=== PATIENT | male | born 1975 | race Caucasian/White ===

== ENCOUNTER 2019-10-29 15:31 | Inpatient (IN) | payer MEDICAID, OTHER ==
[~2019-10-29] VITALS: Ht 190.5 cm; Wt 91.0 kg
[2019-10-29 16:59] LABS: BASOPHILS % (AUTO) 0.5 % (0.0-2.0); EOSINOPHILS % (AUTO) 2.8 % (1.0-6.0); HEMATOCRIT 41.6 % (41-53); HEMOGLOBIN 14.2 g/dL (13.5-17.5); LYMPHOCYTES # (AUTO) 2.9 K/uL (1.0-4.8); LYMPHOCYTES % (AUTO) 25.2 % (22.0-44.0); MEAN CORPUSCULAR HEMOGLOBIN 30.8 pg (26.0-34.0); MEAN CORPUSCULAR HGB CONC 34.2 G/dL (31.0-37.0); MEAN CORPUSCULAR VOLUME 90 fL (80-100); MONOCYTES # (AUTO) 0.9 K/uL (0.1-1.0); MONOCYTES % (AUTO) 7.7 % (2.0-9.0); NEUTROPHILS # (AUTO) 7.4 K/uL (1.8-7.7); NEUTROPHILS % (AUTO) 63.8 % (40.0-70.0); PLATELET COUNT (AUTO) 333 K/uL (150-450); RED BLOOD CELL COUNT(AUTO) 4.61 MIL/uL (4.50-5.90); RED CELL DISTRIBUTION WIDTH 13.2 % (11.5-14.5)
[2019-10-29 17:09] LABS: ANION GAP 6 mmol/L (8-16); CALCIUM, TOTAL 9.1 mg/dL (8.8-10.5); CARBON DIOXIDE 28 mmol/L (22-29); CHLORIDE 103 mmol/L (98-107); CREATININE 1.49 mg/dL (0.60-1.30); GLOMERULAR FILTR. RATE CALC 51 mL/min (>60); GLUCOSE,RANDOM 107 mg/dL (70-110); POTASSIUM 4.2 mmol/L (3.5-5.1); SODIUM SERUM 137 mmol/L (136-145); UREA NITROGEN, BLOOD 24 mg/dL (7-18)
[2019-10-29 17:10] LABS: AMPHET/METH SCREEN,URINE NEGATIVE (NEGATIVE); BARBITURATE SCREEN, URINE NEGATIVE (NEGATIVE); BENZODIAZEPINES SCREEN,URINE POSITIVE (NEGATIVE); CANNABINOID SCREEN,URINE NEGATIVE (NEGATIVE); COCAINE SCREEN,URINE NEGATIVE (NEGATIVE); METHADONE SCREEN, URINE NEGATIVE (NEGATIVE); OPIATE SCREEN,URINE POSITIVE (NEGATIVE)
[2019-10-29 17:11] LABS: PHENCYCLIDINE SCREEN,URINE NEGATIVE (NEGATIVE)
[2019-10-29 17:15] LABS: ALANINE AMINOTRANSFERASE 24 U/L (12-78); ALBUMIN 3.8 g/dL (3.4-5.0); ALKALINE PHOSPHATASE 62 U/L (46-116); ASPARTATE AMINOTRANSFERASE 16 U/L (15-37); BILIRUBIN,TOTAL 0.4 mg/dL (0.1-1.0); TOTAL PROTEIN, SERUM 7.7 g/dL (6.4-8.2)
[2019-10-29] MEDS: LORazepam 2 MG TABLET PO PRN (22:04)
[2019-10-29] MEDS: HALOPERIDOL 5 MG TABLET PO PRN (22:04)
[2019-10-30] VITALS (7 sets, daily range): BP systolic 107–150; BP diastolic 60–91
[2019-10-30] MEDS: LORazepam 2 MG TABLET PO PRN ×2 (06:59→17:55)
[2019-10-30] MEDS ORDERED: ALBUTEROL SULFATE HFA 90 MCG/PUFF 8 GM INHALER IH PRN (07:30)
[2019-10-30] MEDS ORDERED: DOCUSATE SODIUM 100 MG CAPSULE PO PRN (07:30)
[2019-10-30] MEDS ORDERED: MAG HYDROX/AL HYDROX/SIMETH ES 30 ML SUSPENSION UDCUP PO PRN ×2 (07:30→09:30)
[2019-10-30] MEDS ORDERED: CloNIDine HCL 0.1 MG TABLET PO PRN ×2 (07:30→09:30)
[2019-10-30] MEDS ORDERED: PETROLATUM,WHITE 28 GM JELLY TP PRN (07:30)
[2019-10-30] MEDS ORDERED: ACETAMINOPHEN 325 MG TABLET PO PRN (07:30)
[2019-10-30] MEDS ORDERED: LOPERAMIDE HCL 2 MG CAPSULE PO PRN (07:30)
[2019-10-30] MEDS ORDERED: MAGNESIUM HYDROXIDE SUSPENSION 30 ML UDCUP PO PRN (07:30)
[2019-10-30] MEDS ORDERED: IBUPROFEN 400 MG TABLET PO PRN (07:30)
[2019-10-30] MEDS ORDERED: NICOTINE 14 MG/24 HOUR PATCH TD PRN (07:30)
[2019-10-30] MEDS ORDERED: GuaiFENesin/D-METHORPHAN [SUGAR-FREE] 200-20MG/10 ML SYRUP UDCUP PO PRN (07:30)
[2019-10-30] MEDS ORDERED: IBUPROFEN 600 MG TABLET PO PRN (09:30)
[2019-10-30] MEDS ORDERED: HydrOXYzine PAMOATE 50 MG CAPSULE PO PRN (09:30)
[2019-10-30] MEDS ORDERED: ONDANSETRON HCL 4 MG TABLET PO PRN (11:00)
[2019-10-30] MEDS: CloNIDine HCL 0.1 MG TABLET PO SCH ×3 (12:36→21:38)
[2019-10-30] MEDS: HALOPERIDOL 5 MG TABLET PO PRN (17:55)
[2019-10-30] MEDS: FLUoxetine HCL 20 MG CAPSULE PO SCH (21:00)
[2019-10-31] MEDS: LORazepam 2 MG TABLET PO PRN ×4 (01:06→21:15)
[2019-10-31] MEDS: ZOLPIDEM TARTRATE 10 MG TABLET PO PRN ×2 (01:13→21:18)
[2019-10-31 02:19] VITALS: BP 116/68
[2019-10-31 02:23] VITALS: BP 116/68
[2019-10-31] MEDS: CloNIDine HCL 0.1 MG TABLET PO SCH ×4 (06:00→21:15)
[2019-10-31 12:11] VITALS: BP 121/73
[2019-10-31 16:00] VITALS: BP 132/81
[2019-10-31] MEDS: FLUoxetine HCL 20 MG CAPSULE PO SCH (21:15)
[2019-10-31] MEDS: HALOPERIDOL 5 MG TABLET PO PRN (21:18)
[2019-11-01] MEDS: LORazepam 2 MG TABLET PO PRN ×4 (04:01→16:53)
[2019-11-01 04:07] VITALS: BP 128/82
[2019-11-01] MEDS: CloNIDine HCL 0.1 MG TABLET PO SCH ×4 (06:00→20:47)
[2019-11-01 08:01] VITALS: BP 132/72
[2019-11-01 08:14] VITALS: BP 132/72
[2019-11-01] MEDS: HALOPERIDOL 5 MG TABLET PO PRN ×2 (08:46→12:39)
[2019-11-01 20:47] VITALS: BP 118/76
[2019-11-01] MEDS: FLUoxetine HCL 20 MG CAPSULE PO SCH (20:47)
[2019-11-01] MEDS: ZOLPIDEM TARTRATE 10 MG TABLET PO PRN (20:47)
[2019-11-02 01:07] VITALS: BP 124/85
[2019-11-02] MEDS: CloNIDine HCL 0.1 MG TABLET PO SCH (06:00)
[2019-11-02] MEDS: LORazepam 2 MG TABLET PO PRN ×2 (07:12→11:02)
[2019-11-02 08:46] VITALS: BP 138/76
[2019-11-02 08:47] VITALS: BP 138/76
[2019-11-02] MEDS ORDERED: FLUO-191 PO (13:28)
== END 2019-11-02 14:20 | disposition home or self-care (01) | DRG 751 ==
LOC: EMS 15:31 → B3A 18:50
PROVIDERS: ADMIT Psychiatry & Neurology Child & Adolescent Psychiatry; ATTEND Psychiatry & Neurology Child & Adolescent Psychiatry
DX: F32.2 Major depressive disorder, single episode, severe without psychotic features (principal); D72.829 Elevated white blood cell count, unspecified; R56.9 Unspecified convulsions; N17.9 Acute kidney failure, unspecified; F41.9 Anxiety disorder, unspecified; Z20.828 Contact with and (suspected) exposure to other viral communicable diseases
CPT/HCPCS: 87426; G0480; Q0162

== ENCOUNTER 2020-05-11 13:11 | Inpatient (IN) | payer MEDICAID, OTHER ==
[~2020-05-11] VITALS: Ht 190.5 cm; Wt 90.9 kg
[~2020-05-11 13:11] MED LIST: FLUO-191 PO
[2020-05-11 14:58] LABS: BASOPHILS % (AUTO) 0.5 % (0.0-2.0); EOSINOPHILS % (AUTO) 1.4 % (1.0-6.0); HEMATOCRIT 40.2 % (41-53); HEMOGLOBIN 13.5 g/dL (13.5-17.5); LYMPHOCYTES # (AUTO) 1.7 K/uL (1.0-4.8); LYMPHOCYTES % (AUTO) 14.3 % (22.0-44.0); MEAN CORPUSCULAR HEMOGLOBIN 30.7 pg (26.0-34.0); MEAN CORPUSCULAR HGB CONC 33.7 G/dL (31.0-37.0); MEAN CORPUSCULAR VOLUME 91 fL (80-100); MONOCYTES # (AUTO) 0.7 K/uL (0.1-1.0); MONOCYTES % (AUTO) 6.1 % (2.0-9.0); NEUTROPHILS # (AUTO) 9.2 K/uL (1.8-7.7); NEUTROPHILS % (AUTO) 77.7 % (40.0-70.0); PLATELET COUNT (AUTO) 332 K/uL (150-450); RED BLOOD CELL COUNT(AUTO) 4.42 MIL/uL (4.50-5.90); RED CELL DISTRIBUTION WIDTH 13.4 % (11.5-14.5)
[2020-05-11 15:24] LABS: ANION GAP 11 mmol/L (8-16); CALCIUM, TOTAL 8.4 mg/dL (8.8-10.5); CARBON DIOXIDE 25 mmol/L (22-29); CHLORIDE 105 mmol/L (98-107); CREATININE 1.04 mg/dL (0.60-1.30); GLOMERULAR FILTR. RATE CALC > 60 mL/min (>60); GLUCOSE,RANDOM 104 mg/dL (70-110); POTASSIUM 4.3 mmol/L (3.5-5.1); SODIUM SERUM 141 mmol/L (136-145); UREA NITROGEN, BLOOD 16 mg/dL (7-18)
[2020-05-11 15:31] LABS: ALANINE AMINOTRANSFERASE 23 U/L (12-78); ALBUMIN 3.3 g/dL (3.4-5.0); ALKALINE PHOSPHATASE 53 U/L (46-116); ASPARTATE AMINOTRANSFERASE 15 U/L (15-37); BILIRUBIN,TOTAL 0.4 mg/dL (0.1-1.0); TOTAL PROTEIN, SERUM 6.8 g/dL (6.4-8.2)
[2020-05-11 15:37] LABS: COVID AG,FIA SOURCE NASAL SWAB
[2020-05-11 16:00] LABS: AMPHET/METH SCREEN,URINE NEGATIVE (NEGATIVE); BARBITURATE SCREEN, URINE NEGATIVE (NEGATIVE); BENZODIAZEPINES SCREEN,URINE POSITIVE (NEGATIVE); CANNABINOID SCREEN,URINE NEGATIVE (NEGATIVE); COCAINE SCREEN,URINE NEGATIVE (NEGATIVE); METHADONE SCREEN, URINE NEGATIVE (NEGATIVE); OPIATE SCREEN,URINE POSITIVE (NEGATIVE)
[2020-05-11 16:02] LABS: PHENCYCLIDINE SCREEN,URINE NEGATIVE (NEGATIVE)
[2020-05-11] MEDS ORDERED: OxyCODONE HCL 5 MG IR TABLET PO ONE (19:30)
[2020-05-11] MEDS ORDERED: LORazepam 2 MG TABLET PO PRN (20:15)
[2020-05-11] MEDS ORDERED: ZOLPIDEM TARTRATE 10 MG TABLET PO PRN (20:15)
[2020-05-11] MEDS ORDERED: HALOPERIDOL 5 MG TABLET PO PRN (20:15)
[2020-05-12] MEDS ORDERED: HALOPERIDOL LACTATE 5 MG/ML VIAL IVP ONE (01:30)
[2020-05-12] MEDS ORDERED: DiphenhydrAMINE HCL 50 MG/ML VIAL IVP ONE (01:30)
[2020-05-12] MEDS ORDERED: LORazepam 2 MG/ML VIAL IVP ONE (01:30)
[2020-05-12] MEDS ORDERED: DiphenhydrAMINE HCL 50 MG/ML VIAL IM ONE (01:45)
[2020-05-12] MEDS ORDERED: LORazepam 2 MG/ML VIAL IM ONE (01:45)
[2020-05-12] MEDS ORDERED: HALOPERIDOL LACTATE 5 MG/ML VIAL IM ONE (01:45)
[2020-05-12 02:09] VITALS: BP 122/73
[2020-05-13] MEDS ORDERED: INFLUENZA VIRUS VACCINE QVS 2020-21 (6MO+)/PF 60 MCG/0.5 ML SYRINGE IM ONE (01:00)
[2020-05-13 08:44] VITALS: BP 129/82
== END 2020-05-13 13:40 | disposition home or self-care (01) | DRG 750 ==
LOC: EMS 13:11 → B3A 20:04
PROVIDERS: ADMIT Psychiatry & Neurology Psychiatry; ATTEND Psychiatry & Neurology Psychiatry
DX: F20.9 Schizophrenia, unspecified (principal); F41.9 Anxiety disorder, unspecified; G47.00 Insomnia, unspecified; K59.00 Constipation, unspecified; R45.851 Suicidal ideations; F15.10 Other stimulant abuse, uncomplicated; F11.10 Opioid abuse, uncomplicated; R56.9 Unspecified convulsions; F10.939 Alcohol use, unspecified with withdrawal, unspecified; Z20.822 Contact with and (suspected) exposure to COVID-19; Z80.42 Family history of malignant neoplasm of prostate; Z72.0 Tobacco use; Z28.21 Immunization not carried out because of patient refusal; Z91.14 Patient's other noncompliance with medication regimen; Z79.899 Other long term (current) drug therapy
CPT/HCPCS: 87426; 99285; G0480; J1200; J1630; J2060

== ENCOUNTER 2021-08-11 19:54 | Inpatient (IN) | payer MEDICAID, OTHER ==
[~2021-08-11] VITALS: Ht 190.5 cm; Wt 88.5 kg
[2021-08-11 21:25] LABS: BASOPHILS % (AUTO) 0.6 % (0.0-2.0); EOSINOPHILS % (AUTO) 1.8 % (1.0-6.0); HEMATOCRIT 37.3 % (41-53); HEMOGLOBIN 12.6 g/dL (13.5-17.5); LYMPHOCYTES # (AUTO) 3.5 K/uL (1.0-4.8); LYMPHOCYTES % (AUTO) 31.2 % (22.0-44.0); MEAN CORPUSCULAR HEMOGLOBIN 30.2 pg (26.0-34.0); MEAN CORPUSCULAR HGB CONC 33.8 G/dL (31.0-37.0); MEAN CORPUSCULAR VOLUME 89 fL (80-100); MONOCYTES # (AUTO) 0.9 K/uL (0.1-1.0); MONOCYTES % (AUTO) 8.3 % (2.0-9.0); NEUTROPHILS # (AUTO) 6.5 K/uL (1.8-7.7); NEUTROPHILS % (AUTO) 58.1 % (40.0-70.0); PLATELET COUNT (AUTO) 430 K/uL (150-450); RED BLOOD CELL COUNT(AUTO) 4.18 MIL/uL (4.50-5.90); RED CELL DISTRIBUTION WIDTH 13.9 % (11.5-14.5)
[2021-08-11 21:26] LABS: COVID AG,FIA SOURCE NASAL SWAB
[2021-08-11 21:33] LABS: ANION GAP 6 mmol/L (8-16); CALCIUM, TOTAL 8.9 mg/dL (8.8-10.5); CARBON DIOXIDE 28 mmol/L (22-29); CHLORIDE 108 mmol/L (98-107); GLOMERULAR FILTR. RATE CALC > 60 mL/min (>60); GLUCOSE,RANDOM 102 mg/dL (70-110); POTASSIUM 3.8 mmol/L (3.5-5.1); SODIUM SERUM 142 mmol/L (136-145); UREA NITROGEN, BLOOD 22 mg/dL (7-18)
[2021-08-11 21:39] LABS: ALANINE AMINOTRANSFERASE 26 U/L (12-78); ALBUMIN 3.2 g/dL (3.4-5.0); ALKALINE PHOSPHATASE 94 U/L (46-116); ASPARTATE AMINOTRANSFERASE 10 U/L (15-37); BILIRUBIN,TOTAL 0.2 mg/dL (0.1-1.0); TOTAL PROTEIN, SERUM 6.4 g/dL (6.4-8.2)
[2021-08-11] MEDS: LORazepam 2 MG TABLET PO PRN (22:00)
[2021-08-11 22:15] LABS: APPEARANCE,URINE CLEAR (CLEAR); BILIRUBIN,URINE NEGATIVE (NEGATIVE); GLUCOSE, URINE (UA) NEGATIVE (NEGATIVE); KETONES,URINE NEGATIVE (NEGATIVE); LEUKOCYTE ESTERASE ,URINE NEGATIVE (NEGATIVE); NITRATE,URINE NEGATIVE (NEGATIVE); OCCULT BLOOD,URINE NEGATIVE (NEGATIVE); PH,URINE 6.5 (5.0-8.0); PROTEIN,URINE TRACE mg/dL (NEGATIVE); SPECIFIC GRAVITIY, URINE 1.029 (1.003-1.030)
[2021-08-11 22:21] LABS: AMPHET/METH SCREEN,URINE NEGATIVE (NEGATIVE); BARBITURATE SCREEN, URINE NEGATIVE (NEGATIVE); BENZODIAZEPINES SCREEN,URINE POSITIVE (NEGATIVE); CANNABINOID SCREEN,URINE NEGATIVE (NEGATIVE); COCAINE SCREEN,URINE NEGATIVE (NEGATIVE); METHADONE SCREEN, URINE NEGATIVE (NEGATIVE); OPIATE SCREEN,URINE NEGATIVE (NEGATIVE)
[2021-08-11 22:23] LABS: PHENCYCLIDINE SCREEN,URINE NEGATIVE (NEGATIVE)
[2021-08-12 05:09] VITALS: BP 117/84
[2021-08-12 07:16] LABS: CHOL/HDL RATIO 2.9 (4.2-7.3); FREE T4 (FREE THYROXINE) 0.97 ng/dL (0.76-1.46); THYROID STIMULATING HORMONE 0.73 uIU/mL (0.36-3.74)
[2021-08-12 07:44] LABS: HEMOGLOBIN A1C 5.6 % (3.8-5.6)
[2021-08-12 08:19] VITALS: BP 116/70
[2021-08-12] MEDS: LORazepam 2 MG TABLET PO PRN ×2 (08:38→14:55)
[2021-08-12 09:06] VITALS: BP 116/70
[2021-08-12] MEDS ORDERED: PROMETHAZINE HCL 25 MG TABLET PO PRN (12:00)
[2021-08-12] MEDS ORDERED: MAGNESIUM HYDROXIDE SUSPENSION 30 ML UDCUP PO PRN (12:00)
[2021-08-12] MEDS ORDERED: ACETAMINOPHEN 325 MG TABLET PO PRN (12:00)
[2021-08-12] MEDS ORDERED: LOPERAMIDE HCL 2 MG CAPSULE PO PRN (12:00)
[2021-08-12] MEDS ORDERED: TUBERCULIN, PURIFIED PROTEIN DERIVATIVE 5 TU/0.1 ML SYRINGE ID ONE (12:00)
[2021-08-12] MEDS ORDERED: GuaiFENesin/D-METHORPHAN [SUGAR-FREE] 200-20MG/10 ML SYRUP UDCUP PO PRN (12:00)
[2021-08-12] MEDS ORDERED: MAG HYDROX/AL HYDROX/SIMETH ES 30 ML SUSPENSION UDCUP PO PRN (12:00)
[2021-08-12 16:10] VITALS: BP 120/66
[2021-08-12] MEDS: HydrOXYzine PAMOATE 50 MG CAPSULE PO PRN (16:32)
[2021-08-12] MEDS: THIAMINE 100 MG TABLET PO SCH (16:32)
[2021-08-12] MEDS: LevETIRAcetam 500 MG TABLET PO SCH (16:33)
[2021-08-12] MEDS ORDERED: LevETIRAcetam 100 MG/ML 5 ML SOLUTION UDCUP PO SCH (17:00)
[2021-08-12] MEDS ORDERED: OLANZapine 5 MG RAPDIS TABLET PO SCH (21:00)
[2021-08-12] MEDS: DIVALPROEX SODIUM 500 MG ER TABLET PO SCH (21:04)
[2021-08-12] MEDS: MELATONIN 5 MG TABLET PO SCH (21:04)
[2021-08-12] MEDS: ZOLPIDEM TARTRATE 10 MG TABLET PO PRN ×2 (21:47→21:54)
[2021-08-13] MEDS: ZOLPIDEM TARTRATE 10 MG TABLET PO PRN ×2 (02:49→20:19)
[2021-08-13] MEDS: OMEGA-3/DHA/EPA/FISH OIL 1,000 MG CAPSULE PO SCH (08:20)
[2021-08-13] MEDS: THIAMINE 100 MG TABLET PO SCH ×2 (08:20→16:07)
[2021-08-13] MEDS: LORazepam 2 MG TABLET PO PRN ×3 (08:20→20:45)
[2021-08-13] MEDS: LevETIRAcetam 500 MG TABLET PO SCH ×2 (08:20→16:07)
[2021-08-13] MEDS: MULTIVITAMINS WITH MINERALS, THERAPEUTIC TABLET PO SCH (08:20)
[2021-08-13] MEDS: FOLIC ACID 1 MG TABLET PO SCH (08:20)
[2021-08-13] MEDS: OLANZapine 5 MG RAPDIS TABLET PO PRN (08:20)
[2021-08-13] MEDS: NALTREXONE HCL 50 MG TABLET PO SCH (08:21)
[2021-08-13 08:28] VITALS: BP 112/74
[2021-08-13] MEDS ORDERED: FLUoxetine HCL 20 MG CAPSULE PO SCH (09:00)
[2021-08-13 16:20] VITALS: BP 116/80
[2021-08-13] MEDS: OLANZapine 10 MG RAPDIS TABLET PO SCH (20:16)
[2021-08-13] MEDS: MELATONIN 5 MG TABLET PO SCH (20:16)
[2021-08-13] MEDS: DIVALPROEX SODIUM 500 MG ER TABLET PO SCH (20:16)
[2021-08-13 20:31] VITALS: BP 121/80
[2021-08-14 06:05] VITALS: BP 117/85
[2021-08-14] MEDS: LORazepam 2 MG TABLET PO PRN (06:12)
[2021-08-14] MEDS: FOLIC ACID 1 MG TABLET PO SCH (08:12)
[2021-08-14] MEDS: OMEGA-3/DHA/EPA/FISH OIL 1,000 MG CAPSULE PO SCH (08:12)
[2021-08-14] MEDS: THIAMINE 100 MG TABLET PO SCH ×2 (08:12→16:14)
[2021-08-14] MEDS: LevETIRAcetam 500 MG TABLET PO SCH ×2 (08:12→16:14)
[2021-08-14] MEDS: NALTREXONE HCL 50 MG TABLET PO SCH (08:12)
[2021-08-14] MEDS: MULTIVITAMINS WITH MINERALS, THERAPEUTIC TABLET PO SCH (08:13)
[2021-08-14] MEDS: HydrOXYzine PAMOATE 50 MG CAPSULE PO PRN (09:45)
[2021-08-14] MEDS: OLANZapine 5 MG RAPDIS TABLET PO PRN (09:46)
[2021-08-14] MEDS ORDERED: PALIPERIDONE PALMITATE 234 MG/1.5 ML SYRINGE IM ONE (16:00)
[2021-08-14] MEDS: OLANZapine 10 MG RAPDIS TABLET PO SCH (20:05)
[2021-08-14] MEDS: DIVALPROEX SODIUM 500 MG ER TABLET PO SCH (20:05)
[2021-08-14] MEDS: MELATONIN 5 MG TABLET PO SCH (20:05)
[2021-08-14 20:16] VITALS: BP 108/66
[2021-08-14] MEDS: ZOLPIDEM TARTRATE 10 MG TABLET PO PRN (21:22)
[2021-08-15] MEDS: OLANZapine 5 MG RAPDIS TABLET PO PRN ×2 (00:42→09:15)
[2021-08-15] MEDS: LORazepam 2 MG TABLET PO PRN ×2 (00:42→07:03)
[2021-08-15 04:03] VITALS: BP 114/83
[2021-08-15 08:08] VITALS: BP 136/73
[2021-08-15] MEDS: FOLIC ACID 1 MG TABLET PO SCH (08:55)
[2021-08-15] MEDS: NALTREXONE HCL 50 MG TABLET PO SCH (08:55)
[2021-08-15] MEDS: OMEGA-3/DHA/EPA/FISH OIL 1,000 MG CAPSULE PO SCH (08:55)
[2021-08-15] MEDS: MULTIVITAMINS WITH MINERALS, THERAPEUTIC TABLET PO SCH (08:55)
[2021-08-15] MEDS: THIAMINE 100 MG TABLET PO SCH ×4 (08:57→18:01)
[2021-08-15] MEDS: LevETIRAcetam 500 MG TABLET PO SCH ×4 (09:14→17:00)
[2021-08-15] MEDS: HydrOXYzine PAMOATE 50 MG CAPSULE PO PRN (09:15)
[2021-08-15] MEDS ORDERED: LORazepam 2 MG/ML VIAL IM ONE (13:45)
[2021-08-15] MEDS ORDERED: DiphenhydrAMINE HCL 50 MG/ML VIAL IM ONE (13:45)
[2021-08-15] MEDS ORDERED: HALOPERIDOL LACTATE 5 MG/ML VIAL IM ONE (13:45)
[2021-08-15] MEDS: LORazepam 1 MG TABLET PO PRN (18:01)
[2021-08-15 20:06] VITALS: BP 125/74
[2021-08-15] MEDS: OLANZapine 10 MG RAPDIS TABLET PO SCH (20:18)
[2021-08-15] MEDS: MELATONIN 5 MG TABLET PO SCH (20:18)
[2021-08-15] MEDS: DIVALPROEX SODIUM 500 MG ER TABLET PO SCH (20:19)
[2021-08-15] MEDS: ZOLPIDEM TARTRATE 10 MG TABLET PO PRN (20:19)
[2021-08-16] MEDS: LORazepam 1 MG TABLET PO PRN ×3 (05:47→22:17)
[2021-08-16 08:06] VITALS: BP 122/79
[2021-08-16] MEDS: NALTREXONE HCL 50 MG TABLET PO SCH (08:25)
[2021-08-16] MEDS: OMEGA-3/DHA/EPA/FISH OIL 1,000 MG CAPSULE PO SCH (08:25)
[2021-08-16] MEDS: FOLIC ACID 1 MG TABLET PO SCH (08:25)
[2021-08-16] MEDS: THIAMINE 100 MG TABLET PO SCH ×2 (08:25→16:03)
[2021-08-16] MEDS: MULTIVITAMINS WITH MINERALS, THERAPEUTIC TABLET PO SCH (08:25)
[2021-08-16] MEDS: LevETIRAcetam 500 MG TABLET PO SCH ×2 (08:25→16:03)
[2021-08-16] MEDS: TraZODone HCL 150 MG TABLET PO SCH (20:09)
[2021-08-16] MEDS: MELATONIN 5 MG TABLET PO SCH (20:09)
[2021-08-16] MEDS: DIVALPROEX SODIUM 500 MG ER TABLET PO SCH (20:09)
[2021-08-16] MEDS: OLANZapine 10 MG RAPDIS TABLET PO SCH (20:10)
[2021-08-16 20:28] VITALS: BP 123/81
[2021-08-16] MEDS: ZOLPIDEM TARTRATE 10 MG TABLET PO PRN (22:18)
[2021-08-17] MEDS: OLANZapine 5 MG RAPDIS TABLET PO PRN ×2 (06:43→15:52)
[2021-08-17] MEDS: LORazepam 1 MG TABLET PO PRN ×3 (06:44→23:57)
[2021-08-17 07:03] VITALS: BP 124/86
[2021-08-17] MEDS: MULTIVITAMINS WITH MINERALS, THERAPEUTIC TABLET PO SCH (09:05)
[2021-08-17] MEDS: OMEGA-3/DHA/EPA/FISH OIL 1,000 MG CAPSULE PO SCH (09:05)
[2021-08-17] MEDS: FOLIC ACID 1 MG TABLET PO SCH (09:05)
[2021-08-17] MEDS: LevETIRAcetam 500 MG TABLET PO SCH ×2 (09:05→16:33)
[2021-08-17] MEDS: NALTREXONE HCL 50 MG TABLET PO SCH (09:06)
[2021-08-17 09:17] VITALS: BP 108/68
[2021-08-17] MEDS: THIAMINE 100 MG TABLET PO SCH ×2 (10:19→16:33)
[2021-08-17 20:06] VITALS: BP 121/78
[2021-08-17] MEDS: DIVALPROEX SODIUM 500 MG ER TABLET PO SCH (21:51)
[2021-08-17] MEDS: MELATONIN 5 MG TABLET PO SCH (21:51)
[2021-08-17] MEDS: OLANZapine 10 MG RAPDIS TABLET PO SCH (21:51)
[2021-08-17] MEDS: TraZODone HCL 150 MG TABLET PO SCH (21:51)
[2021-08-17] MEDS: ZOLPIDEM TARTRATE 10 MG TABLET PO PRN (23:58)
[2021-08-18 08:12] VITALS: BP 113/72
[2021-08-18] MEDS: FOLIC ACID 1 MG TABLET PO SCH (08:21)
[2021-08-18] MEDS: MULTIVITAMINS WITH MINERALS, THERAPEUTIC TABLET PO SCH (08:21)
[2021-08-18] MEDS: LevETIRAcetam 500 MG TABLET PO SCH ×2 (08:21→16:39)
[2021-08-18] MEDS: NALTREXONE HCL 50 MG TABLET PO SCH (08:21)
[2021-08-18] MEDS: LORazepam 1 MG TABLET PO PRN ×3 (08:30→20:51)
[2021-08-18 08:51] LABS: GLUCOMETER DEV NAME(LOC) POC.BV
[2021-08-18] MEDS ORDERED: PALIPERIDONE PALMITATE 156 MG/ML SYRINGE IM ONE (09:00)
[2021-08-18] MEDS: OMEGA-3/DHA/EPA/FISH OIL 1,000 MG CAPSULE PO SCH (09:00)
[2021-08-18] MEDS: THIAMINE 100 MG TABLET PO SCH ×2 (09:00→16:39)
[2021-08-18 20:06] VITALS: BP 121/82
[2021-08-18] MEDS: OLANZapine 10 MG RAPDIS TABLET PO SCH (20:25)
[2021-08-18] MEDS: DIVALPROEX SODIUM 250 MG ER TABLET PO SCH (20:25)
[2021-08-18] MEDS: DIVALPROEX SODIUM 500 MG ER TABLET PO SCH (20:26)
[2021-08-18] MEDS: MELATONIN 5 MG TABLET PO SCH (20:27)
[2021-08-18] MEDS: ZOLPIDEM TARTRATE 10 MG TABLET PO PRN (20:27)
[2021-08-18] MEDS: TraZODone HCL 150 MG TABLET PO SCH (20:27)
[2021-08-19] MEDS: OLANZapine 5 MG RAPDIS TABLET PO PRN (00:53)
[2021-08-19] MEDS: LORazepam 1 MG TABLET PO PRN ×3 (00:57→20:16)
[2021-08-19] MEDS: OMEGA-3/DHA/EPA/FISH OIL 1,000 MG CAPSULE PO SCH (08:48)
[2021-08-19] MEDS: THIAMINE 100 MG TABLET PO SCH ×2 (08:48→16:59)
[2021-08-19] MEDS: NALTREXONE HCL 50 MG TABLET PO SCH ×2 (08:48→09:00)
[2021-08-19] MEDS: FOLIC ACID 1 MG TABLET PO SCH (08:48)
[2021-08-19] MEDS: LevETIRAcetam 500 MG TABLET PO SCH ×3 (08:48→16:59)
[2021-08-19] MEDS: MULTIVITAMINS WITH MINERALS, THERAPEUTIC TABLET PO SCH (08:48)
[2021-08-19 20:11] VITALS: BP 116/73
[2021-08-19] MEDS: DIVALPROEX SODIUM 500 MG ER TABLET PO SCH (20:15)
[2021-08-19] MEDS: DIVALPROEX SODIUM 250 MG ER TABLET PO SCH (20:15)
[2021-08-19] MEDS: ZOLPIDEM TARTRATE 10 MG TABLET PO PRN (20:16)
[2021-08-19] MEDS: MELATONIN 5 MG TABLET PO SCH (20:16)
[2021-08-19] MEDS ORDERED: TraZODone HCL 100 MG TABLET PO SCH (21:00)
[2021-08-19] MEDS ORDERED: OLANZapine 5 MG RAPDIS TABLET PO SCH (21:00)
[2021-08-20 08:56] VITALS: BP 122/75
[2021-08-20] MEDS: THIAMINE 100 MG TABLET PO SCH (09:27)
[2021-08-20] MEDS: OMEGA-3/DHA/EPA/FISH OIL 1,000 MG CAPSULE PO SCH (09:27)
[2021-08-20] MEDS: NALTREXONE HCL 50 MG TABLET PO SCH (09:27)
[2021-08-20] MEDS: FOLIC ACID 1 MG TABLET PO SCH (09:27)
[2021-08-20] MEDS: LevETIRAcetam 500 MG TABLET PO SCH (09:27)
[2021-08-20] MEDS: MULTIVITAMINS WITH MINERALS, THERAPEUTIC TABLET PO SCH (09:27)
[2021-08-20] MEDS: LORazepam 1 MG TABLET PO PRN (09:31)
[2021-08-20] MEDS ORDERED: DIVA-80 PO (13:32)
[2021-08-20] MEDS ORDERED: OLAN5TAB94 PO (13:32)
[2021-08-20] MEDS ORDERED: MELA5TAB40 PO (13:32)
[2021-08-20] MEDS ORDERED: NALT50TA PO (13:32)
[2021-08-20] MEDS ORDERED: OMEG-108 PO (13:32)
[2021-08-20] MEDS ORDERED: DIVA-85 PO (13:32)
[2021-08-20] MEDS ORDERED: TRAZ-257 PO (13:32)
[2021-08-20] MEDS ORDERED: LEVE500T8 PO (13:32)
== END 2021-08-20 15:15 | disposition home or self-care (01) | DRG 750 ==
LOC: EMS 19:54 → B3A 21:42
PROVIDERS: ADMIT Psychiatry & Neurology Psychiatry; ATTEND Psychiatry & Neurology Psychiatry
DX: F25.1 Schizoaffective disorder, depressive type (principal); R45.851 Suicidal ideations; Z20.822 Contact with and (suspected) exposure to COVID-19; F41.9 Anxiety disorder, unspecified; D64.9 Anemia, unspecified; F10.239 Alcohol dependence with withdrawal, unspecified; Y90.9 Presence of alcohol in blood, level not specified; N18.9 Chronic kidney disease, unspecified; Z87.891 Personal history of nicotine dependence
CPT/HCPCS: 80053; 80061; 80164; 81003; 83036; 84439; 84443; 85025; 99285; G0480; J1200; J1630; J2060; Q9967

== ENCOUNTER 2021-08-22 01:21 | Inpatient (IN) | payer MEDICAID, OTHER ==
[~2021-08-22] VITALS: Ht 190.5 cm; Wt 98.1 kg
[~2021-08-22 01:21] MED LIST changes: +DIVA-80 PO; +DIVA-85 PO; -FLUO-191 PO; +LEVE500T8 PO; +MELA5TAB40 PO; +NALT50TA PO; +OLAN5TAB94 PO; +OMEG-108 PO; +TRAZ-257 PO
[2021-08-22 02:04] LABS: BASOPHILS % (AUTO) 0.3 % (0.0-2.0); EOSINOPHILS % (AUTO) 2.3 % (1.0-6.0); HEMATOCRIT 38.1 % (41-53); LYMPHOCYTES % (AUTO) 25.1 % (22.0-44.0); MEAN CORPUSCULAR HEMOGLOBIN 30.9 pg (26.0-34.0); MEAN CORPUSCULAR HGB CONC 34.1 G/dL (31.0-37.0); MEAN CORPUSCULAR VOLUME 91 fL (80-100); MONOCYTES # (AUTO) 1.1 K/uL (0.1-1.0); MONOCYTES % (AUTO) 9.4 % (2.0-9.0); NEUTROPHILS # (AUTO) 7.5 K/uL (1.8-7.7); NEUTROPHILS % (AUTO) 62.9 % (40.0-70.0); PLATELET COUNT (AUTO) 287 K/uL (150-450); RED CELL DISTRIBUTION WIDTH 15.5 % (11.5-14.5)
[2021-08-22 02:12] LABS: ANION GAP 5 mmol/L (8-16); CALCIUM, TOTAL 8.8 mg/dL (8.8-10.5); CARBON DIOXIDE 28 mmol/L (22-29); CHLORIDE 107 mmol/L (98-107); CREATININE 1.12 mg/dL (0.60-1.30); GLUCOSE,RANDOM 94 mg/dL (70-110); SODIUM SERUM 140 mmol/L (136-145); UREA NITROGEN, BLOOD 18 mg/dL (7-18)
[2021-08-22 02:13] LABS: GLOMERULAR FILTR. RATE CALC > 60 mL/min (>60)
[2021-08-22 02:18] LABS: ALANINE AMINOTRANSFERASE 45 U/L (12-78); ALBUMIN 3.4 g/dL (3.4-5.0); ALKALINE PHOSPHATASE 73 U/L (46-116); ASPARTATE AMINOTRANSFERASE 29 U/L (15-37); BILIRUBIN,TOTAL 0.2 mg/dL (0.1-1.0); TOTAL PROTEIN, SERUM 6.7 g/dL (6.4-8.2)
[2021-08-22 03:01] LABS: APPEARANCE,URINE CLEAR (CLEAR); GLUCOSE, URINE (UA) NEGATIVE (NEGATIVE); KETONES,URINE TRACE mg/dL (NEGATIVE); LEUKOCYTE ESTERASE ,URINE NEGATIVE (NEGATIVE); NITRATE,URINE NEGATIVE (NEGATIVE); OCCULT BLOOD,URINE NEGATIVE (NEGATIVE); PH,URINE 6.5 (5.0-8.0); PROTEIN,URINE 30-70 mg/dL (NEGATIVE); SPECIFIC GRAVITIY, URINE 1.044 (1.003-1.030)
[2021-08-22 03:03] LABS: COVID AG,FIA SOURCE NASAL SWAB
[2021-08-22 03:06] LABS: BILIRUBIN,URINE SMALL (NEGATIVE)
[2021-08-22 03:08] LABS: AMPHET/METH SCREEN,URINE NEGATIVE (NEGATIVE); BARBITURATE SCREEN, URINE POSITIVE (NEGATIVE); BENZODIAZEPINES SCREEN,URINE NEGATIVE (NEGATIVE); CANNABINOID SCREEN,URINE NEGATIVE (NEGATIVE); COCAINE SCREEN,URINE NEGATIVE (NEGATIVE); METHADONE SCREEN, URINE NEGATIVE (NEGATIVE); OPIATE SCREEN,URINE NEGATIVE (NEGATIVE)
[2021-08-22 03:09] LABS: PHENCYCLIDINE SCREEN,URINE NEGATIVE (NEGATIVE)
[2021-08-22] MEDS: LORazepam 2 MG TABLET PO PRN ×3 (04:05→17:00)
[2021-08-22] MEDS: OLANZapine 5 MG RAPDIS TABLET PO PRN ×2 (04:06→08:36)
[2021-08-22] MEDS: LevETIRAcetam 500 MG TABLET PO SCH ×2 (08:37→16:18)
[2021-08-22] MEDS ORDERED: GuaiFENesin/D-METHORPHAN [SUGAR-FREE] 200-20MG/10 ML SYRUP UDCUP PO PRN (14:30)
[2021-08-22] MEDS ORDERED: ACETAMINOPHEN 325 MG TABLET PO PRN (14:30)
[2021-08-22] MEDS ORDERED: MAGNESIUM HYDROXIDE SUSPENSION 30 ML UDCUP PO PRN (14:30)
[2021-08-22] MEDS ORDERED: PROMETHAZINE HCL 25 MG TABLET PO PRN (14:30)
[2021-08-22] MEDS ORDERED: LOPERAMIDE HCL 2 MG CAPSULE PO PRN (14:30)
[2021-08-22] MEDS ORDERED: MAG HYDROX/AL HYDROX/SIMETH ES 30 ML SUSPENSION UDCUP PO PRN (14:30)
[2021-08-22] MEDS: THIAMINE 100 MG TABLET PO SCH (16:18)
[2021-08-22 16:33] VITALS: BP 129/83
[2021-08-22] MEDS ORDERED: NICOTINE 21 MG/24 HOUR PATCH TD ONE (19:30)
[2021-08-22 20:00] VITALS: BP 132/80
[2021-08-22] MEDS: OLANZapine 5 MG RAPDIS TABLET PO SCH (20:07)
[2021-08-22] MEDS: DIVALPROEX SODIUM 250 MG ER TABLET PO SCH (20:12)
[2021-08-22] MEDS: DIVALPROEX SODIUM 500 MG ER TABLET PO SCH (20:13)
[2021-08-22] MEDS: MELATONIN 5 MG TABLET PO SCH (20:13)
[2021-08-22] MEDS ORDERED: DIVALPROEX SODIUM 500 MG ER TABLET PO SCH (21:00)
[2021-08-23] MEDS: LORazepam 2 MG TABLET PO PRN ×3 (04:14→17:54)
[2021-08-23] MEDS: OLANZapine 5 MG RAPDIS TABLET PO PRN ×2 (04:14→08:55)
[2021-08-23] MEDS: LevETIRAcetam 500 MG TABLET PO SCH ×2 (08:00→16:20)
[2021-08-23] MEDS: NICOTINE 21 MG/24 HOUR PATCH TD SCH (08:00)
[2021-08-23] MEDS: MULTIVITAMINS WITH MINERALS, THERAPEUTIC TABLET PO SCH (08:00)
[2021-08-23] MEDS: FOLIC ACID 1 MG TABLET PO SCH (08:00)
[2021-08-23] MEDS: NALTREXONE HCL 50 MG TABLET PO SCH (08:00)
[2021-08-23] MEDS: THIAMINE 100 MG TABLET PO SCH ×2 (08:00→16:20)
[2021-08-23] MEDS: OMEGA-3/DHA/EPA/FISH OIL 1,000 MG CAPSULE PO SCH (08:00)
[2021-08-23 08:49] VITALS: BP 125/85
[2021-08-23 16:42] VITALS: BP 131/92
[2021-08-23] MEDS: DIVALPROEX SODIUM 250 MG ER TABLET PO SCH (20:29)
[2021-08-23] MEDS: DIVALPROEX SODIUM 500 MG ER TABLET PO SCH (20:29)
[2021-08-23] MEDS: MELATONIN 5 MG TABLET PO SCH (20:29)
[2021-08-23] MEDS: OLANZapine 5 MG RAPDIS TABLET PO SCH (20:29)
[2021-08-24] MEDS: LORazepam 2 MG TABLET PO PRN ×4 (02:36→23:48)
[2021-08-24] MEDS: ZOLPIDEM TARTRATE 10 MG TABLET PO PRN ×2 (02:36→23:47)
[2021-08-24] MEDS: NICOTINE 21 MG/24 HOUR PATCH TD SCH (07:34)
[2021-08-24] MEDS: OLANZapine 5 MG RAPDIS TABLET PO PRN ×3 (07:34→23:47)
[2021-08-24] MEDS: OMEGA-3/DHA/EPA/FISH OIL 1,000 MG CAPSULE PO SCH (07:34)
[2021-08-24] MEDS: LevETIRAcetam 500 MG TABLET PO SCH ×2 (07:34→16:23)
[2021-08-24] MEDS: HydrOXYzine PAMOATE 50 MG CAPSULE PO PRN (07:34)
[2021-08-24] MEDS: NALTREXONE HCL 50 MG TABLET PO SCH (07:34)
[2021-08-24] MEDS: MULTIVITAMINS WITH MINERALS, THERAPEUTIC TABLET PO SCH (07:36)
[2021-08-24] MEDS: THIAMINE 100 MG TABLET PO SCH ×2 (07:36→16:24)
[2021-08-24] MEDS: FOLIC ACID 1 MG TABLET PO SCH (07:44)
[2021-08-24 08:00] VITALS: BP 168/94
[2021-08-24 16:44] VITALS: BP 105/63
[2021-08-24] MEDS: DIVALPROEX SODIUM 250 MG ER TABLET PO SCH (21:00)
[2021-08-24] MEDS: MELATONIN 5 MG TABLET PO SCH (21:00)
[2021-08-24] MEDS: OLANZapine 5 MG RAPDIS TABLET PO SCH (21:00)
[2021-08-24] MEDS: DIVALPROEX SODIUM 500 MG ER TABLET PO SCH (21:00)
[2021-08-25 00:17] VITALS: BP 115/90
[2021-08-25] MEDS: THIAMINE 100 MG TABLET PO SCH ×2 (08:07→16:37)
[2021-08-25] MEDS: OLANZapine 5 MG RAPDIS TABLET PO PRN (08:07)
[2021-08-25] MEDS: LevETIRAcetam 500 MG TABLET PO SCH ×2 (08:07→16:36)
[2021-08-25] MEDS: FOLIC ACID 1 MG TABLET PO SCH (08:07)
[2021-08-25] MEDS: MULTIVITAMINS WITH MINERALS, THERAPEUTIC TABLET PO SCH (08:07)
[2021-08-25] MEDS: LORazepam 2 MG TABLET PO PRN ×2 (08:07→15:00)
[2021-08-25] MEDS: OMEGA-3/DHA/EPA/FISH OIL 1,000 MG CAPSULE PO SCH (08:07)
[2021-08-25] MEDS: NALTREXONE HCL 50 MG TABLET PO SCH (08:08)
[2021-08-25] MEDS: NICOTINE 21 MG/24 HOUR PATCH TD SCH (08:10)
[2021-08-25 08:40] VITALS: BP 148/90
[2021-08-25 16:04] VITALS: BP 139/82
[2021-08-25] MEDS: HydrOXYzine PAMOATE 50 MG CAPSULE PO PRN (16:37)
[2021-08-25] MEDS: MELATONIN 5 MG TABLET PO SCH (20:41)
[2021-08-25] MEDS: OLANZapine 5 MG RAPDIS TABLET PO SCH (20:41)
[2021-08-25] MEDS: DIVALPROEX SODIUM 250 MG ER TABLET PO SCH (20:41)
[2021-08-25] MEDS: DIVALPROEX SODIUM 500 MG ER TABLET PO SCH (20:43)
[2021-08-26 00:30] VITALS: BP 120/76
[2021-08-26] MEDS: LORazepam 2 MG TABLET PO PRN ×3 (00:37→14:22)
[2021-08-26] MEDS: ZOLPIDEM TARTRATE 10 MG TABLET PO PRN ×2 (00:37→22:32)
[2021-08-26] MEDS: FOLIC ACID 1 MG TABLET PO SCH (07:51)
[2021-08-26] MEDS: OMEGA-3/DHA/EPA/FISH OIL 1,000 MG CAPSULE PO SCH (07:51)
[2021-08-26] MEDS: NALTREXONE HCL 50 MG TABLET PO SCH (07:51)
[2021-08-26] MEDS: LevETIRAcetam 500 MG TABLET PO SCH ×2 (07:52→16:38)
[2021-08-26] MEDS: MULTIVITAMINS WITH MINERALS, THERAPEUTIC TABLET PO SCH (07:52)
[2021-08-26] MEDS: THIAMINE 100 MG TABLET PO SCH ×2 (07:52→16:38)
[2021-08-26 08:18] VITALS: BP 105/69
[2021-08-26] MEDS: NICOTINE 21 MG/24 HOUR PATCH TD SCH (10:26)
[2021-08-26] MEDS: OLANZapine 5 MG RAPDIS TABLET PO PRN (14:22)
[2021-08-26 16:18] VITALS: BP 122/76
[2021-08-26] MEDS: HydrOXYzine PAMOATE 50 MG CAPSULE PO PRN (16:40)
[2021-08-26] MEDS: MELATONIN 5 MG TABLET PO SCH (20:23)
[2021-08-26] MEDS: DIVALPROEX SODIUM 500 MG ER TABLET PO SCH (20:23)
[2021-08-26] MEDS: OLANZapine 5 MG RAPDIS TABLET PO SCH (20:23)
[2021-08-26] MEDS: DIVALPROEX SODIUM 250 MG ER TABLET PO SCH (20:24)
[2021-08-27] MEDS: LORazepam 2 MG TABLET PO PRN ×2 (04:10→09:47)
[2021-08-27] MEDS: OLANZapine 5 MG RAPDIS TABLET PO PRN ×2 (04:10→09:48)
[2021-08-27 08:09] VITALS: BP 124/86
[2021-08-27] MEDS: FOLIC ACID 1 MG TABLET PO SCH (09:47)
[2021-08-27] MEDS: MULTIVITAMINS WITH MINERALS, THERAPEUTIC TABLET PO SCH (09:47)
[2021-08-27] MEDS: OMEGA-3/DHA/EPA/FISH OIL 1,000 MG CAPSULE PO SCH (09:47)
[2021-08-27] MEDS: NALTREXONE HCL 50 MG TABLET PO SCH (09:47)
[2021-08-27] MEDS: LevETIRAcetam 500 MG TABLET PO SCH ×2 (09:47→16:44)
[2021-08-27] MEDS: THIAMINE 100 MG TABLET PO SCH ×2 (09:47→16:44)
[2021-08-27] MEDS: NICOTINE 21 MG/24 HOUR PATCH TD SCH (09:49)
[2021-08-27 16:04] VITALS: BP 107/73
[2021-08-27] MEDS: MELATONIN 5 MG TABLET PO SCH (20:04)
[2021-08-27] MEDS: DIVALPROEX SODIUM 250 MG ER TABLET PO SCH (20:04)
[2021-08-27] MEDS: OLANZapine 5 MG RAPDIS TABLET PO SCH (20:04)
[2021-08-27] MEDS: DIVALPROEX SODIUM 500 MG ER TABLET PO SCH (20:04)
[2021-08-27 20:45] VITALS: BP 116/79
[2021-08-28] MEDS: ZOLPIDEM TARTRATE 10 MG TABLET PO PRN (00:42)
[2021-08-28] MEDS: LORazepam 2 MG TABLET PO PRN ×4 (02:03→21:10)
[2021-08-28 07:29] LABS: COVID AG,FIA SOURCE NASAL SWAB
[2021-08-28 08:09] VITALS: BP 124/79
[2021-08-28] MEDS: THIAMINE 100 MG TABLET PO SCH ×2 (09:30→15:53)
[2021-08-28] MEDS: FOLIC ACID 1 MG TABLET PO SCH (09:30)
[2021-08-28] MEDS: NALTREXONE HCL 50 MG TABLET PO SCH (09:30)
[2021-08-28] MEDS: OLANZapine 5 MG RAPDIS TABLET PO PRN ×2 (09:30→15:53)
[2021-08-28] MEDS: OMEGA-3/DHA/EPA/FISH OIL 1,000 MG CAPSULE PO SCH (09:31)
[2021-08-28] MEDS: LevETIRAcetam 500 MG TABLET PO SCH ×2 (09:31→15:53)
[2021-08-28] MEDS: NICOTINE 21 MG/24 HOUR PATCH TD SCH ×2 (09:31→09:33)
[2021-08-28] MEDS: MULTIVITAMINS WITH MINERALS, THERAPEUTIC TABLET PO SCH (09:31)
[2021-08-28 16:47] VITALS: BP 126/82
[2021-08-28 20:22] VITALS: BP 123/80
[2021-08-28] MEDS: DIVALPROEX SODIUM 500 MG ER TABLET PO SCH (20:30)
[2021-08-28] MEDS: DIVALPROEX SODIUM 250 MG ER TABLET PO SCH (20:31)
[2021-08-28] MEDS: MELATONIN 5 MG TABLET PO SCH (20:31)
[2021-08-28] MEDS: OLANZapine 5 MG RAPDIS TABLET PO SCH (20:31)
[2021-08-29 08:00] VITALS: BP 128/92
[2021-08-29] MEDS: NALTREXONE HCL 50 MG TABLET PO SCH (09:04)
[2021-08-29] MEDS: THIAMINE 100 MG TABLET PO SCH ×2 (09:04→16:55)
[2021-08-29] MEDS: MULTIVITAMINS WITH MINERALS, THERAPEUTIC TABLET PO SCH (09:05)
[2021-08-29] MEDS: OMEGA-3/DHA/EPA/FISH OIL 1,000 MG CAPSULE PO SCH (09:05)
[2021-08-29] MEDS: FOLIC ACID 1 MG TABLET PO SCH (09:05)
[2021-08-29] MEDS: LevETIRAcetam 500 MG TABLET PO SCH ×2 (09:05→16:55)
[2021-08-29] MEDS: NICOTINE 21 MG/24 HOUR PATCH TD SCH (09:05)
[2021-08-29] MEDS: LORazepam 2 MG TABLET PO PRN (11:44)
[2021-08-29] MEDS: OLANZapine 5 MG RAPDIS TABLET PO PRN (11:44)
[2021-08-29 16:49] VITALS: BP 124/84
[2021-08-29] MEDS: DIVALPROEX SODIUM 250 MG ER TABLET PO SCH (20:24)
[2021-08-29] MEDS: DIVALPROEX SODIUM 500 MG ER TABLET PO SCH (20:24)
[2021-08-29] MEDS: MELATONIN 5 MG TABLET PO SCH (20:24)
[2021-08-29] MEDS: OLANZapine 5 MG RAPDIS TABLET PO SCH (20:25)
[2021-08-30] MEDS: LORazepam 2 MG TABLET PO PRN ×4 (04:12→23:35)
[2021-08-30] MEDS: OLANZapine 5 MG RAPDIS TABLET PO PRN (04:12)
[2021-08-30] MEDS: OMEGA-3/DHA/EPA/FISH OIL 1,000 MG CAPSULE PO SCH (08:29)
[2021-08-30] MEDS: LevETIRAcetam 500 MG TABLET PO SCH ×2 (08:29→16:43)
[2021-08-30] MEDS: THIAMINE 100 MG TABLET PO SCH ×2 (08:30→16:43)
[2021-08-30] MEDS: NALTREXONE HCL 50 MG TABLET PO SCH (08:30)
[2021-08-30] MEDS: MULTIVITAMINS WITH MINERALS, THERAPEUTIC TABLET PO SCH (08:30)
[2021-08-30] MEDS: FOLIC ACID 1 MG TABLET PO SCH (08:30)
[2021-08-30 08:31] VITALS: BP 135/91
[2021-08-30] MEDS: NICOTINE 21 MG/24 HOUR PATCH TD SCH (08:31)
[2021-08-30 16:15] VITALS: BP 123/78
[2021-08-30] MEDS: MELATONIN 5 MG TABLET PO SCH (20:04)
[2021-08-30] MEDS: DIVALPROEX SODIUM 250 MG ER TABLET PO SCH (20:04)
[2021-08-30] MEDS: DIVALPROEX SODIUM 500 MG ER TABLET PO SCH (20:04)
[2021-08-30] MEDS: OLANZapine 5 MG RAPDIS TABLET PO SCH (20:04)
[2021-08-30] MEDS: ZOLPIDEM TARTRATE 10 MG TABLET PO PRN (23:36)
[2021-08-31 08:25] VITALS: BP 103/62
[2021-08-31] MEDS: NICOTINE 21 MG/24 HOUR PATCH TD SCH (09:00)
[2021-08-31] MEDS: THIAMINE 100 MG TABLET PO SCH ×2 (09:17→15:39)
[2021-08-31] MEDS: LevETIRAcetam 500 MG TABLET PO SCH ×2 (09:17→15:39)
[2021-08-31] MEDS: FOLIC ACID 1 MG TABLET PO SCH (09:17)
[2021-08-31] MEDS: OLANZapine 5 MG RAPDIS TABLET PO PRN ×2 (09:17→15:39)
[2021-08-31] MEDS: MULTIVITAMINS WITH MINERALS, THERAPEUTIC TABLET PO SCH (09:17)
[2021-08-31] MEDS: OMEGA-3/DHA/EPA/FISH OIL 1,000 MG CAPSULE PO SCH (09:17)
[2021-08-31] MEDS: NALTREXONE HCL 50 MG TABLET PO SCH (09:17)
[2021-08-31] MEDS: LORazepam 2 MG TABLET PO PRN ×2 (09:17→15:39)
[2021-08-31 16:06] VITALS: BP 90/52
[2021-08-31 19:06] VITALS: BP 112/69
[2021-08-31] MEDS: MELATONIN 5 MG TABLET PO SCH (20:35)
[2021-08-31] MEDS: DIVALPROEX SODIUM 250 MG ER TABLET PO SCH (20:35)
[2021-08-31] MEDS: OLANZapine 10 MG RAPDIS TABLET PO SCH (20:35)
[2021-08-31] MEDS: DIVALPROEX SODIUM 500 MG ER TABLET PO SCH (20:36)
[2021-09-01] MEDS: NICOTINE 21 MG/24 HOUR PATCH TD SCH (07:24)
[2021-09-01] MEDS: OLANZapine 5 MG RAPDIS TABLET PO PRN ×2 (07:24→16:02)
[2021-09-01] MEDS: NALTREXONE HCL 50 MG TABLET PO SCH (07:24)
[2021-09-01] MEDS: FOLIC ACID 1 MG TABLET PO SCH (07:24)
[2021-09-01] MEDS: OMEGA-3/DHA/EPA/FISH OIL 1,000 MG CAPSULE PO SCH (07:24)
[2021-09-01] MEDS: THIAMINE 100 MG TABLET PO SCH (07:25)
[2021-09-01] MEDS: MULTIVITAMINS WITH MINERALS, THERAPEUTIC TABLET PO SCH (07:25)
[2021-09-01] MEDS: LevETIRAcetam 500 MG TABLET PO SCH (07:25)
[2021-09-01] MEDS: LORazepam 2 MG TABLET PO PRN ×2 (07:26→16:02)
[2021-09-01 08:13] VITALS: BP 158/99
[2021-09-01] MEDS ORDERED: DIVALPROEX SODIUM 500 MG ER TABLET PO SCH (09:00)
[2021-09-01] MEDS ORDERED: DIVA-85 PO (15:29)
[2021-09-01] MEDS ORDERED: OLAN10TA26 PO (15:29)
[2021-09-01] MEDS ORDERED: OMEG-108 PO (15:29)
[2021-09-01] MEDS ORDERED: MELA5TAB40 PO (15:29)
[2021-09-01] MEDS ORDERED: DIVA-80 PO ×2 (15:29)
[2021-09-01] MEDS ORDERED: LEVE500T8 PO (15:29)
[2021-09-01] MEDS ORDERED: NALT50TA PO (15:29)
[2021-09-01 16:16] VITALS: BP 128/83
[2021-09-01] MEDS ORDERED: LevETIRAcetam 500 MG TABLET PO SCH (17:00)
[2021-09-01] MEDS: OLANZapine 10 MG RAPDIS TABLET PO SCH (20:51)
[2021-09-01] MEDS: DIVALPROEX SODIUM 250 MG ER TABLET PO SCH (20:51)
[2021-09-01] MEDS: DIVALPROEX SODIUM 500 MG ER TABLET PO SCH (20:51)
[2021-09-01] MEDS: MELATONIN 5 MG TABLET PO SCH (20:55)
== END 2021-09-01 21:10 | disposition home or self-care (01) | DRG 750 ==
LOC: EMS 01:22 → 3EC 02:56
PROVIDERS: ADMIT Psychiatry & Neurology Psychiatry; ATTEND Psychiatry & Neurology Psychiatry
DX: F25.0 Schizoaffective disorder, bipolar type (principal); G40.409 Other generalized epilepsy and epileptic syndromes, not intractable, without status epilepticus; R45.851 Suicidal ideations; F41.9 Anxiety disorder, unspecified; F10.239 Alcohol dependence with withdrawal, unspecified; G47.00 Insomnia, unspecified; J44.9 Chronic obstructive pulmonary disease, unspecified; R45.850 Homicidal ideations; Z53.29 Procedure and treatment not carried out because of patient's decision for other reasons; Z55.9 Problems related to education and literacy, unspecified; Z59.9 Problem related to housing and economic circumstances, unspecified; Z63.9 Problem related to primary support group, unspecified; Z65.3 Problems related to other legal circumstances; Z87.891 Personal history of nicotine dependence; Z91.14 Patient's other noncompliance with medication regimen; Z91.19 Patient's noncompliance with other medical treatment and regimen; Z63.8 Other specified problems related to primary support group
CPT/HCPCS: 80053; 80164; 81003; 85025; 87081; 99285; G0480; G0482; Q9967

== ENCOUNTER 2022-01-09 14:04 | Inpatient (IN) | payer MEDICAID, OTHER ==
[~2022-01-09] VITALS: Ht 193 cm; Wt 109.3 kg
[~2022-01-09 14:04] MED LIST changes: +OLAN10TA26 PO; -OLAN5TAB94 PO; -OMEG-108 PO; +OMEG-135 PO; -TRAZ-257 PO
[2022-01-09 14:49] LABS: BASOPHILS % (AUTO) 0.7 % (0.0-2.0); EOSINOPHILS % (AUTO) 2.8 % (1.0-6.0); HEMATOCRIT 45.8 % (41-53); HEMOGLOBIN 15.8 g/dL (13.5-17.5); LYMPHOCYTES # (AUTO) 2.4 K/uL (1.0-4.8); LYMPHOCYTES % (AUTO) 20.6 % (22.0-44.0); MEAN CORPUSCULAR HEMOGLOBIN 31.1 pg (26.0-34.0); MEAN CORPUSCULAR HGB CONC 34.6 G/dL (31.0-37.0); MEAN CORPUSCULAR VOLUME 90 fL (80-100); MONOCYTES # (AUTO) 0.6 K/uL (0.1-1.0); MONOCYTES % (AUTO) 5.5 % (2.0-9.0); NEUTROPHILS # (AUTO) 8.3 K/uL (1.8-7.7); NEUTROPHILS % (AUTO) 70.4 % (40.0-70.0); PLATELET COUNT (AUTO) 349 K/uL (150-450); RED BLOOD CELL COUNT(AUTO) 5.09 MIL/uL (4.50-5.90); RED CELL DISTRIBUTION WIDTH 13.2 % (11.5-14.5)
[2022-01-09 15:00] LABS: ANION GAP 11 mmol/L (8-16); CALCIUM, TOTAL 9.2 mg/dL (8.8-10.5); CARBON DIOXIDE 24 mmol/L (22-29); CHLORIDE 102 mmol/L (98-107); CREATININE 1.17 mg/dL (0.60-1.30); GLOMERULAR FILTR. RATE CALC > 60 mL/min (>60); GLUCOSE,RANDOM 98 mg/dL (70-110); POTASSIUM 4.2 mmol/L (3.5-5.1); SODIUM SERUM 137 mmol/L (136-145); UREA NITROGEN, BLOOD 16 mg/dL (7-18)
[2022-01-09 15:06] LABS: ALANINE AMINOTRANSFERASE 16 U/L (12-78); ALBUMIN 3.9 g/dL (3.4-5.0); ALKALINE PHOSPHATASE 72 U/L (46-116); ASPARTATE AMINOTRANSFERASE 12 U/L (15-37); BILIRUBIN,TOTAL 0.4 mg/dL (0.1-1.0); TOTAL PROTEIN, SERUM 7.6 g/dL (6.4-8.2)
[2022-01-09 15:23] LABS: VALPROIC ACID 23 mcg/mL (50-100)
[2022-01-09 15:29] LABS: AMPHET/METH SCREEN,URINE NEGATIVE (NEGATIVE); BARBITURATE SCREEN, URINE NEGATIVE (NEGATIVE); BENZODIAZEPINES SCREEN,URINE NEGATIVE (NEGATIVE); CANNABINOID SCREEN,URINE NEGATIVE (NEGATIVE); COCAINE SCREEN,URINE NEGATIVE (NEGATIVE); METHADONE SCREEN, URINE NEGATIVE (NEGATIVE); OPIATE SCREEN,URINE NEGATIVE (NEGATIVE)
[2022-01-09 15:30] LABS: PHENCYCLIDINE SCREEN,URINE NEGATIVE (NEGATIVE)
[2022-01-09 17:35] LABS: COVID AG,FIA SOURCE NASOPHARYNGEAL
[2022-01-09 17:38] LABS: APPEARANCE,URINE CLEAR (CLEAR); BILIRUBIN,URINE NEGATIVE (NEGATIVE); GLUCOSE, URINE (UA) NEGATIVE (NEGATIVE); KETONES,URINE TRACE mg/dL (NEGATIVE); LEUKOCYTE ESTERASE ,URINE NEGATIVE (NEGATIVE); NITRATE,URINE NEGATIVE (NEGATIVE); OCCULT BLOOD,URINE NEGATIVE (NEGATIVE); PH,URINE 6.5 (5.0-8.0); PROTEIN,URINE TRACE mg/dL (NEGATIVE); SPECIFIC GRAVITIY, URINE 1.029 (1.003-1.030)
[2022-01-09 17:52] LABS: RBC,URINE None Seen /HPF (0-2); WBC,URINE 0-2 /HPF (0-5)
[2022-01-09 17:53] LABS: BACTERIA,URINE None Seen /HPF (None Seen); SQUAMOUS EPITHELIAL CELL,UR Few /LPF (None Seen)
[2022-01-09] MEDS: LORazepam 2 MG TABLET PO PRN (18:50)
[2022-01-09] MEDS: HALOPERIDOL 5 MG TABLET PO PRN (18:50)
[2022-01-10] MEDS: HALOPERIDOL 5 MG TABLET PO PRN (12:09)
[2022-01-11] MEDS: LORazepam 2 MG TABLET PO PRN ×2 (05:38→19:05)
[2022-01-11] MEDS ORDERED: ACETAMINOPHEN 325 MG TABLET PO PRN (15:30)
[2022-01-11] MEDS ORDERED: ALBUTEROL SULFATE HFA 90 MCG/PUFF 8 GM INHALER IH PRN (15:30)
[2022-01-11] MEDS ORDERED: CloNIDine HCL 0.1 MG TABLET PO PRN (15:30)
[2022-01-11] MEDS ORDERED: ONDANSETRON HCL 4 MG TABLET PO PRN (15:30)
[2022-01-11] MEDS ORDERED: MAG HYDROX/AL HYDROX/SIMETH ES 30 ML SUSPENSION UDCUP PO PRN (15:30)
[2022-01-11] MEDS ORDERED: DOCUSATE SODIUM 100 MG CAPSULE PO PRN (15:30)
[2022-01-11] MEDS ORDERED: PETROLATUM,WHITE 28 GM JELLY TP PRN (15:30)
[2022-01-11] MEDS ORDERED: IBUPROFEN 400 MG TABLET PO PRN (15:30)
[2022-01-11] MEDS ORDERED: LOPERAMIDE HCL 2 MG CAPSULE PO PRN (15:30)
[2022-01-11] MEDS ORDERED: MAGNESIUM HYDROXIDE SUSPENSION 30 ML UDCUP PO PRN (15:30)
[2022-01-11] MEDS ORDERED: GuaiFENesin/D-METHORPHAN [SUGAR-FREE] 200-20MG/10 ML SYRUP UDCUP PO PRN (15:30)
[2022-01-11] MEDS: HALOPERIDOL 5 MG TABLET PO PRN (19:04)
[2022-01-11] MEDS: LevETIRAcetam 500 MG TABLET PO SCH (21:23)
[2022-01-11] MEDS: MELATONIN 5 MG TABLET PO SCH (21:23)
[2022-01-12] MEDS: LevETIRAcetam 500 MG TABLET PO SCH ×2 (08:07→18:11)
[2022-01-12] MEDS: OMEGA-3/DHA/EPA/FISH OIL 1,000 MG CAPSULE PO SCH (08:08)
[2022-01-12 12:41] VITALS: BP 150/89
[2022-01-12] MEDS: LORazepam 2 MG TABLET PO PRN ×2 (14:42→20:21)
[2022-01-12] MEDS: HALOPERIDOL 5 MG TABLET PO PRN (14:42)
[2022-01-12 16:58] VITALS: BP 113/75
[2022-01-12] MEDS: MELATONIN 5 MG TABLET PO SCH (20:09)
[2022-01-12] MEDS: ZOLPIDEM TARTRATE 10 MG TABLET PO PRN (20:21)
[2022-01-13] MEDS: LORazepam 2 MG TABLET PO PRN ×2 (07:38→11:58)
[2022-01-13] MEDS: OMEGA-3/DHA/EPA/FISH OIL 1,000 MG CAPSULE PO SCH (07:38)
[2022-01-13] MEDS: HALOPERIDOL 5 MG TABLET PO PRN ×2 (07:38→11:58)
[2022-01-13] MEDS: NICOTINE 14 MG/24 HOUR PATCH TD PRN (07:38)
[2022-01-13] MEDS: LevETIRAcetam 500 MG TABLET PO SCH ×2 (07:39→16:52)
[2022-01-13 08:07] VITALS: BP 134/72
[2022-01-13 16:03] VITALS: BP 104/77
[2022-01-13] MEDS: MELATONIN 5 MG TABLET PO SCH (20:48)
[2022-01-13] MEDS: DIVALPROEX SODIUM 500 MG ER TABLET PO SCH (20:48)
[2022-01-13] MEDS ORDERED: QUEtiapine FUMARATE 200 MG TABLET PO SCH (21:00)
[2022-01-14] MEDS: OMEGA-3/DHA/EPA/FISH OIL 1,000 MG CAPSULE PO SCH (08:07)
[2022-01-14] MEDS: DIVALPROEX SODIUM 500 MG ER TABLET PO SCH ×2 (08:07→20:36)
[2022-01-14] MEDS: LORazepam 2 MG TABLET PO PRN ×2 (08:07→17:13)
[2022-01-14] MEDS: HALOPERIDOL 5 MG TABLET PO PRN ×2 (08:07→17:14)
[2022-01-14] MEDS: LevETIRAcetam 500 MG TABLET PO SCH ×2 (08:09→17:13)
[2022-01-14] MEDS: NICOTINE 14 MG/24 HOUR PATCH TD PRN (08:10)
[2022-01-14] MEDS: MELATONIN 5 MG TABLET PO SCH (20:35)
[2022-01-14] MEDS: OLANZapine 10 MG TABLET PO SCH (20:35)
[2022-01-15] MEDS: DIVALPROEX SODIUM 500 MG ER TABLET PO SCH ×2 (08:29→20:07)
[2022-01-15] MEDS: OLANZapine 10 MG TABLET PO SCH ×2 (08:29→20:07)
[2022-01-15] MEDS: OMEGA-3/DHA/EPA/FISH OIL 1,000 MG CAPSULE PO SCH (08:29)
[2022-01-15] MEDS: LevETIRAcetam 500 MG TABLET PO SCH ×2 (08:29→16:09)
[2022-01-15] MEDS: LORazepam 2 MG TABLET PO PRN ×2 (08:56→18:31)
[2022-01-15] MEDS: HALOPERIDOL 5 MG TABLET PO PRN ×2 (08:56→18:31)
[2022-01-15 12:19] LABS: COVID AG,FIA SOURCE NASOPHARYNGEAL
[2022-01-15 16:00] VITALS: BP 98/57
[2022-01-15] MEDS: MELATONIN 5 MG TABLET PO SCH (20:07)
[2022-01-16] MEDS: LevETIRAcetam 500 MG TABLET PO SCH ×2 (08:48→16:11)
[2022-01-16] MEDS: OMEGA-3/DHA/EPA/FISH OIL 1,000 MG CAPSULE PO SCH (08:48)
[2022-01-16] MEDS: DIVALPROEX SODIUM 500 MG ER TABLET PO SCH ×2 (08:48→20:08)
[2022-01-16] MEDS: OLANZapine 10 MG TABLET PO SCH ×2 (08:48→20:08)
[2022-01-16] MEDS: LORazepam 2 MG TABLET PO PRN ×2 (15:30→19:34)
[2022-01-16] MEDS: HALOPERIDOL 5 MG TABLET PO PRN ×2 (15:30→19:34)
[2022-01-16 16:14] VITALS: BP 116/77
[2022-01-16] MEDS: MELATONIN 5 MG TABLET PO SCH (20:09)
[2022-01-17 08:09] VITALS: BP 127/87
[2022-01-17] MEDS: DIVALPROEX SODIUM 500 MG ER TABLET PO SCH ×2 (08:23→20:07)
[2022-01-17] MEDS: LevETIRAcetam 500 MG TABLET PO SCH ×2 (08:24→16:10)
[2022-01-17] MEDS: OMEGA-3/DHA/EPA/FISH OIL 1,000 MG CAPSULE PO SCH (08:24)
[2022-01-17] MEDS: OLANZapine 10 MG TABLET PO SCH ×2 (08:25→20:07)
[2022-01-17] MEDS: LORazepam 2 MG TABLET PO PRN (11:00)
[2022-01-17] MEDS: HALOPERIDOL 5 MG TABLET PO PRN (11:00)
[2022-01-17 11:29] LABS: BASOPHILS % (AUTO) 0.9 % (0.0-2.0); HEMATOCRIT 44.9 % (41-53); HEMOGLOBIN 15.4 g/dL (13.5-17.5); LYMPHOCYTES # (AUTO) 2.7 K/uL (1.0-4.8); LYMPHOCYTES % (AUTO) 29.6 % (22.0-44.0); MEAN CORPUSCULAR HEMOGLOBIN 30.8 pg (26.0-34.0); MEAN CORPUSCULAR HGB CONC 34.3 G/dL (31.0-37.0); MEAN CORPUSCULAR VOLUME 90 fL (80-100); MONOCYTES # (AUTO) 0.6 K/uL (0.1-1.0); MONOCYTES % (AUTO) 6.6 % (2.0-9.0); NEUTROPHILS # (AUTO) 5.4 K/uL (1.8-7.7); NEUTROPHILS % (AUTO) 59.9 % (40.0-70.0); PLATELET COUNT (AUTO) 312 K/uL (150-450); RED CELL DISTRIBUTION WIDTH 13.4 % (11.5-14.5)
[2022-01-17 12:20] LABS: CHOL/HDL RATIO 5.2 (4.2-7.3); FREE T4 (FREE THYROXINE) 0.8 ng/dL (0.76-1.46); THYROID STIMULATING HORMONE 1.31 uIU/mL (0.36-3.74)
[2022-01-17 16:03] VITALS: BP 127/70
[2022-01-17] MEDS: MELATONIN 5 MG TABLET PO SCH (20:08)
[2022-01-18] MEDS: OMEGA-3/DHA/EPA/FISH OIL 1,000 MG CAPSULE PO SCH (08:16)
[2022-01-18] MEDS: LevETIRAcetam 500 MG TABLET PO SCH ×2 (08:17→16:30)
[2022-01-18] MEDS: OLANZapine 10 MG TABLET PO SCH ×2 (08:17→20:53)
[2022-01-18] MEDS: DIVALPROEX SODIUM 500 MG ER TABLET PO SCH ×2 (08:18→20:53)
[2022-01-18 08:39] VITALS: BP 114/76
[2022-01-18 16:06] VITALS: BP 111/66
[2022-01-18] MEDS: HALOPERIDOL 5 MG TABLET PO PRN (18:05)
[2022-01-18] MEDS: MELATONIN 5 MG TABLET PO SCH (20:53)
[2022-01-19] MEDS: ZOLPIDEM TARTRATE 10 MG TABLET PO PRN ×2 (00:45→21:03)
[2022-01-19] MEDS: NICOTINE 14 MG/24 HOUR PATCH TD PRN (07:45)
[2022-01-19] MEDS: DIVALPROEX SODIUM 500 MG ER TABLET PO SCH ×2 (07:45→20:11)
[2022-01-19] MEDS: LevETIRAcetam 500 MG TABLET PO SCH ×2 (07:45→16:47)
[2022-01-19] MEDS: OLANZapine 10 MG TABLET PO SCH ×2 (07:45→20:11)
[2022-01-19] MEDS: OMEGA-3/DHA/EPA/FISH OIL 1,000 MG CAPSULE PO SCH (07:46)
[2022-01-19 09:45] VITALS: BP 102/59
[2022-01-19 16:59] VITALS: BP 116/85
[2022-01-19] MEDS: MELATONIN 5 MG TABLET PO SCH (20:12)
[2022-01-20 08:19] VITALS: BP 102/64
[2022-01-20] MEDS: LevETIRAcetam 500 MG TABLET PO SCH ×2 (09:10→16:44)
[2022-01-20] MEDS: OLANZapine 10 MG TABLET PO SCH ×2 (09:10→20:23)
[2022-01-20] MEDS: OMEGA-3/DHA/EPA/FISH OIL 1,000 MG CAPSULE PO SCH (09:10)
[2022-01-20] MEDS: DIVALPROEX SODIUM 500 MG ER TABLET PO SCH ×2 (09:10→20:24)
[2022-01-20] MEDS: HALOPERIDOL 5 MG TABLET PO PRN ×2 (09:44→16:44)
[2022-01-20] MEDS: LORazepam 2 MG TABLET PO PRN ×2 (09:44→16:44)
[2022-01-20 16:42] VITALS: BP 102/68
[2022-01-20] MEDS: MELATONIN 5 MG TABLET PO SCH (20:45)
[2022-01-21 08:00] VITALS: BP 96/66
[2022-01-21] MEDS: OLANZapine 10 MG TABLET PO SCH ×2 (08:44→20:32)
[2022-01-21] MEDS: OMEGA-3/DHA/EPA/FISH OIL 1,000 MG CAPSULE PO SCH (08:44)
[2022-01-21] MEDS: DIVALPROEX SODIUM 500 MG ER TABLET PO SCH ×2 (08:45→20:32)
[2022-01-21] MEDS: LevETIRAcetam 500 MG TABLET PO SCH ×2 (08:45→16:26)
[2022-01-21] MEDS: HALOPERIDOL 5 MG TABLET PO PRN (08:47)
[2022-01-21 16:00] VITALS: BP 110/54
[2022-01-21] MEDS ORDERED: LEVE500T8 PO (19:25)
[2022-01-21] MEDS ORDERED: DIVA-80 PO (19:25)
[2022-01-21] MEDS: MELATONIN 5 MG TABLET PO SCH (20:32)
[2022-01-21] MEDS ORDERED: MELA5TAB40 PO (21:13)
[2022-01-21] MEDS ORDERED: OLAN10 PO (21:13)
[2022-01-21] MEDS ORDERED: OMEG-135 PO (21:13)
[2022-01-22 07:26] LABS: COVID AG,FIA SOURCE NASAL SWAB
[2022-01-22] MEDS: LevETIRAcetam 500 MG TABLET PO SCH (07:53)
[2022-01-22] MEDS: OMEGA-3/DHA/EPA/FISH OIL 1,000 MG CAPSULE PO SCH (07:53)
[2022-01-22] MEDS: OLANZapine 10 MG TABLET PO SCH (07:53)
[2022-01-22] MEDS: DIVALPROEX SODIUM 500 MG ER TABLET PO SCH (07:53)
[2022-01-22 08:20] VITALS: BP 130/81
== END 2022-01-22 08:30 | disposition home or self-care (01) | DRG 750 ==
LOC: EMS 14:04 → 3EC 01-11 06:49 → AHU 01-11 09:02 → 3EC 01-12 12:08
PROVIDERS: ADMIT Psychiatry & Neurology Child & Adolescent Psychiatry; ATTEND Psychiatry & Neurology Child & Adolescent Psychiatry
DX: F25.1 Schizoaffective disorder, depressive type (principal); R45.851 Suicidal ideations; R56.9 Unspecified convulsions; Z91.14 Patient's other noncompliance with medication regimen; F31.9 Bipolar disorder, unspecified; D72.829 Elevated white blood cell count, unspecified; E78.5 Hyperlipidemia, unspecified; F10.10 Alcohol abuse, uncomplicated; F41.9 Anxiety disorder, unspecified; Z20.822 Contact with and (suspected) exposure to COVID-19; Z59.00 Homelessness unspecified; Z91.51 Personal history of suicidal behavior; Z79.899 Other long term (current) drug therapy
CPT/HCPCS: 80053; 80061; 80164; 81001; 84439; 84443; 85025; 99285; G0378; G0480; Q9967

== ENCOUNTER 2022-05-03 07:32 | Emergency (ER) | payer MEDICAID, OTHER ==
[~2022-05-03] VITALS: Ht 190.5 cm; Wt 97.0 kg
[~2022-05-03 07:32] MED LIST changes: -DIVA-80 PO; -DIVA-85 PO; +DIVA500T53 PO; -NALT50TA PO; +OLAN10 PO; -OLAN10TA26 PO
[2022-05-03 09:00] VITALS: BP 155/99
== END 2022-05-03 11:02 | disposition home or self-care (01) ==
LOC: EMS 07:35
DX: F20.9 Schizophrenia, unspecified (principal); F41.9 Anxiety disorder, unspecified; F31.9 Bipolar disorder, unspecified; F17.210 Nicotine dependence, cigarettes, uncomplicated; Z91.14 Patient's other noncompliance with medication regimen
CPT/HCPCS: 99285; Z7502

== ENCOUNTER 2022-05-03 20:58 | Emergency (ER) | payer OTHER ==
[~2022-05-03] VITALS: Ht 190.5 cm; Wt 109.1 kg
[2022-05-03 21:00] VITALS: BP 137/87
== END 2022-05-04 00:10 | disposition left against medical advice (07) ==
LOC: EMS 20:59
DX: Z53.21 Procedure and treatment not carried out due to patient leaving prior to being seen by health care provider (principal)
CPT/HCPCS: 99281; Z7502

== ENCOUNTER 2022-05-05 21:42 | Emergency (ER) | payer OTHER ==
[~2022-05-05] VITALS: Ht 185.4 cm; Wt 86.4 kg
[2022-05-05 23:29] LABS: EOSINOPHILS % (AUTO) 3.1 % (1.0-6.0); HEMOGLOBIN 13.9 g/dL (13.5-17.5); LYMPHOCYTES # (AUTO) 2.3 K/uL (1.0-4.8); LYMPHOCYTES % (AUTO) 18.8 % (22.0-44.0); MEAN CORPUSCULAR HEMOGLOBIN 31.2 pg (26.0-34.0); MEAN CORPUSCULAR HGB CONC 34.8 G/dL (31.0-37.0); MEAN CORPUSCULAR VOLUME 90 fL (80-100); MONOCYTES % (AUTO) 7.9 % (2.0-9.0); NEUTROPHILS # (AUTO) 8.5 K/uL (1.8-7.7); NEUTROPHILS % (AUTO) 69.2 % (40.0-70.0); PLATELET COUNT (AUTO) 405 K/uL (150-450); RED BLOOD CELL COUNT(AUTO) 4.46 MIL/uL (4.50-5.90); RED CELL DISTRIBUTION WIDTH 13.5 % (11.5-14.5)
[2022-05-05 23:37] LABS: ANION GAP 7 mmol/L (8-16); CALCIUM, TOTAL 8.2 mg/dL (8.8-10.5); CARBON DIOXIDE 26 mmol/L (22-29); CHLORIDE 107 mmol/L (98-107); GLOMERULAR FILTR. RATE CALC > 60 mL/min (>60); GLUCOSE,RANDOM 115 mg/dL (70-110); POTASSIUM 4.1 mmol/L (3.5-5.1); SODIUM SERUM 140 mmol/L (136-145); UREA NITROGEN, BLOOD 11 mg/dL (7-18)
[2022-05-05] MEDS ORDERED: LORazepam 1 MG TABLET PO ONE (23:45)
[2022-05-05] MEDS ORDERED: DIVALPROEX SODIUM 250 MG DR TABLET PO ONE (23:45)
[2022-05-05] MEDS ORDERED: OLANZapine 5 MG TABLET PO ONE (23:45)
[2022-05-05 23:55] LABS: B-TYPE NATRIURETIC PEPTIDE 35 pg/mL (0-100)
[2022-05-06 00:03] LABS: ALBUMIN 3.1 g/dL (3.4-5.0); ALKALINE PHOSPHATASE 87 U/L (46-116); BILIRUBIN,TOTAL 0.3 mg/dL (0.1-1.0); CREATINE KINASE, TOTAL ONLY 81 U/L (39-308); TOTAL PROTEIN, SERUM 6.7 g/dL (6.4-8.2)
[2022-05-06 00:05] LABS: ALANINE AMINOTRANSFERASE 21 U/L (12-78); ASPARTATE AMINOTRANSFERASE 17 U/L (15-37)
[2022-05-06 00:12] LABS: AMPHET/METH SCREEN,URINE POSITIVE (NEGATIVE); BARBITURATE SCREEN, URINE NEGATIVE (NEGATIVE); BENZODIAZEPINES SCREEN,URINE POSITIVE (NEGATIVE); CANNABINOID SCREEN,URINE NEGATIVE (NEGATIVE); COCAINE SCREEN,URINE NEGATIVE (NEGATIVE); METHADONE SCREEN, URINE NEGATIVE (NEGATIVE); OPIATE SCREEN,URINE NEGATIVE (NEGATIVE); PHENCYCLIDINE SCREEN,URINE NEGATIVE (NEGATIVE)
[2022-05-06 00:17] LABS: APPEARANCE,URINE HAZY (CLEAR); BILIRUBIN,URINE NEGATIVE (NEGATIVE); GLUCOSE, URINE (UA) NEGATIVE (NEGATIVE); KETONES,URINE NEGATIVE (NEGATIVE); LEUKOCYTE ESTERASE ,URINE NEGATIVE (NEGATIVE); NITRATE,URINE NEGATIVE (NEGATIVE); OCCULT BLOOD,URINE NEGATIVE (NEGATIVE); PH,URINE 7.5 (5.0-8.0); PROTEIN,URINE NEGATIVE (NEGATIVE); SPECIFIC GRAVITIY, URINE 1.022 (1.003-1.030)
[2022-05-06 05:15] VITALS: BP 111/71
== END 2022-05-06 07:13 | disposition home or self-care (01) ==
LOC: EMS 21:51
DX: R07.89 Other chest pain (principal); F15.10 Other stimulant abuse, uncomplicated; F41.9 Anxiety disorder, unspecified; F31.9 Bipolar disorder, unspecified; F20.9 Schizophrenia, unspecified; F17.210 Nicotine dependence, cigarettes, uncomplicated
CPT/HCPCS: 99285; 71045; 80053; 82550; 83880; 84484; 85025; 36415; 93005; 81003; 80307 ×2; G0480

== ENCOUNTER 2022-06-24 19:32 | Inpatient (IN) | payer MEDICAID, OTHER ==
[~2022-06-24] VITALS: Ht 190.5 cm; Wt 111.0 kg
[2022-06-24] MEDS ORDERED: HALOPERIDOL 5 MG TABLET PO ONE (23:15)
[2022-06-24] MEDS ORDERED: DiphenhydrAMINE HCL 25 MG CAPSULE PO ONE (23:15)
[2022-06-24] MEDS ORDERED: LORazepam 2 MG TABLET PO ONE (23:15)
[2022-06-24 23:17] LABS: BASOPHILS % (AUTO) 0.9 % (0.0-2.0); HEMATOCRIT 45.3 % (41-53); HEMOGLOBIN 15.4 g/dL (13.5-17.5); LYMPHOCYTES # (AUTO) 3.8 K/uL (1.0-4.8); MEAN CORPUSCULAR HEMOGLOBIN 30.5 pg (26.0-34.0); MEAN CORPUSCULAR VOLUME 90 fL (80-100); MONOCYTES # (AUTO) 0.9 K/uL (0.1-1.0); MONOCYTES % (AUTO) 6.9 % (2.0-9.0); NEUTROPHILS # (AUTO) 7.9 K/uL (1.8-7.7); NEUTROPHILS % (AUTO) 61.2 % (40.0-70.0); PLATELET COUNT (AUTO) 351 K/uL (150-450); RED BLOOD CELL COUNT(AUTO) 5.06 MIL/uL (4.50-5.90); RED CELL DISTRIBUTION WIDTH 14.8 % (11.5-14.5)
[2022-06-24 23:31] LABS: ANION GAP 9 mmol/L (8-16); CALCIUM, TOTAL 8.7 mg/dL (8.8-10.5); CARBON DIOXIDE 26 mmol/L (22-29); CHLORIDE 103 mmol/L (98-107); CREATININE 1.24 mg/dL (0.60-1.30); GLOMERULAR FILTR. RATE CALC > 60 mL/min (>60); GLUCOSE,RANDOM 96 mg/dL (70-110); SODIUM SERUM 138 mmol/L (136-145); UREA NITROGEN, BLOOD 17 mg/dL (7-18)
[2022-06-24 23:41] LABS: ALANINE AMINOTRANSFERASE 21 U/L (12-78); ALBUMIN 3.6 g/dL (3.4-5.0); ALKALINE PHOSPHATASE 78 U/L (46-116); ASPARTATE AMINOTRANSFERASE 14 U/L (15-37); BILIRUBIN,TOTAL 0.5 mg/dL (0.1-1.0); TOTAL PROTEIN, SERUM 7.3 g/dL (6.4-8.2)
[2022-06-24 23:56] LABS: AMPHET/METH SCREEN,URINE POSITIVE (NEGATIVE); BARBITURATE SCREEN, URINE NEGATIVE (NEGATIVE); BENZODIAZEPINES SCREEN,URINE POSITIVE (NEGATIVE); CANNABINOID SCREEN,URINE NEGATIVE (NEGATIVE); COCAINE SCREEN,URINE POSITIVE (NEGATIVE); METHADONE SCREEN, URINE NEGATIVE (NEGATIVE); OPIATE SCREEN,URINE NEGATIVE (NEGATIVE); PHENCYCLIDINE SCREEN,URINE NEGATIVE (NEGATIVE)
[2022-06-25 00:13] LABS: COVID AG,FIA SOURCE NASOPHARYNGEAL
[2022-06-25] MEDS ORDERED: HALOPERIDOL 5 MG TABLET PO PRN (05:00)
[2022-06-25 05:11] VITALS: BP 137/91
[2022-06-25] MEDS: LORazepam 2 MG TABLET PO PRN ×2 (05:25→17:09)
[2022-06-25] MEDS ORDERED: OMEPRAZOLE 20 MG CAPSULE PO PRN (08:45)
[2022-06-25] MEDS ORDERED: LOPERAMIDE HCL 2 MG CAPSULE PO PRN (08:45)
[2022-06-25] MEDS ORDERED: ALBUTEROL SULFATE HFA 90 MCG/PUFF 8 GM INHALER IH PRN (08:45)
[2022-06-25] MEDS ORDERED: MAG HYDROX/AL HYDROX/SIMETH ES 30 ML SUSPENSION UDCUP PO PRN (08:45)
[2022-06-25] MEDS ORDERED: MAGNESIUM HYDROXIDE SUSPENSION 30 ML UDCUP PO PRN (08:45)
[2022-06-25] MEDS ORDERED: IBUPROFEN 600 MG TABLET PO PRN (08:45)
[2022-06-25] MEDS ORDERED: DOCUSATE SODIUM 100 MG CAPSULE PO PRN (08:45)
[2022-06-25] MEDS ORDERED: CloNIDine HCL 0.1 MG TABLET PO PRN (08:45)
[2022-06-25] MEDS ORDERED: PETROLATUM,WHITE 28 GM JELLY TP PRN (08:45)
[2022-06-25] MEDS ORDERED: ONDANSETRON HCL 4 MG TABLET PO PRN (08:45)
[2022-06-25] MEDS ORDERED: BACITRACIN 28 GM OINTMENT TP PRN (08:45)
[2022-06-25] MEDS ORDERED: ACETAMINOPHEN 325 MG TABLET PO PRN (08:45)
[2022-06-25 08:49] VITALS: BP 104/71
[2022-06-25] MEDS: LevETIRAcetam 500 MG TABLET PO SCH ×2 (09:03→17:09)
[2022-06-25] MEDS: DIVALPROEX SODIUM 500 MG DR TABLET PO SCH (17:09)
[2022-06-25 20:13] VITALS: BP 114/66
[2022-06-25] MEDS: OLANZapine 10 MG TABLET PO SCH (20:30)
[2022-06-25] MEDS: ZOLPIDEM TARTRATE 10 MG TABLET PO PRN (20:30)
[2022-06-25] MEDS: MELATONIN 5 MG TABLET PO SCH (20:30)
[2022-06-26] MEDS: DIVALPROEX SODIUM 500 MG DR TABLET PO SCH ×2 (08:26→16:14)
[2022-06-26] MEDS: LevETIRAcetam 500 MG TABLET PO SCH ×2 (08:26→16:14)
[2022-06-26 08:27] VITALS: BP 104/60
[2022-06-26] MEDS: LORazepam 2 MG TABLET PO PRN ×3 (08:31→21:06)
[2022-06-26] MEDS: MELATONIN 5 MG TABLET PO SCH (20:12)
[2022-06-26] MEDS: OLANZapine 10 MG TABLET PO SCH (20:12)
[2022-06-26] MEDS: ZOLPIDEM TARTRATE 10 MG TABLET PO PRN (20:12)
[2022-06-26 20:18] VITALS: BP 109/73
[2022-06-27 08:16] VITALS: BP 132/81
[2022-06-27] MEDS: LevETIRAcetam 500 MG TABLET PO SCH (08:58)
[2022-06-27] MEDS: DIVALPROEX SODIUM 500 MG DR TABLET PO SCH (08:58)
[2022-06-27] MEDS ORDERED: DIVA-112 PO (14:43)
[2022-06-27] MEDS ORDERED: OLAN10TA74 PO (14:43)
== END 2022-06-27 15:30 | disposition home or self-care (01) | DRG 750 ==
LOC: EMS 19:34 → B3A 06-25 01:00
PROVIDERS: ADMIT Psychiatry & Neurology Psychiatry; ATTEND Psychiatry & Neurology Psychiatry
DX: F25.1 Schizoaffective disorder, depressive type (principal); R45.851 Suicidal ideations; F33.2 Major depressive disorder, recurrent severe without psychotic features; G40.909 Epilepsy, unspecified, not intractable, without status epilepticus; F19.10 Other psychoactive substance abuse, uncomplicated; F41.9 Anxiety disorder, unspecified; G47.00 Insomnia, unspecified; Z20.822 Contact with and (suspected) exposure to COVID-19; R07.89 Other chest pain; F10.90 Alcohol use, unspecified, uncomplicated; Z79.899 Other long term (current) drug therapy; Z91.148 Patient's other noncompliance with medication regimen for other reason; Z87.891 Personal history of nicotine dependence
CPT/HCPCS: 71045; 80053; 80307; 83690; 84484; 85025; 93005; 99285; G0480; Q9967; 36415-L1; 36415-TC

== ENCOUNTER 2022-06-28 20:37 | Inpatient (IN) | payer MEDICAID, OTHER ==
[~2022-06-28] VITALS: Ht 190.5 cm; Wt 109.8 kg
[~2022-06-28 20:37] MED LIST changes: +DIVA-112 PO; -DIVA500T53 PO; -OLAN10 PO; +OLAN10TA74 PO; -OMEG-135 PO
[2022-06-28 21:22] LABS: BASOPHILS % (AUTO) 0.7 % (0.0-2.0); EOSINOPHILS % (AUTO) 1.2 % (1.0-6.0); HEMATOCRIT 47.8 % (41-53); HEMOGLOBIN 16.7 g/dL (13.5-17.5); LYMPHOCYTES # (AUTO) 4.3 K/uL (1.0-4.8); LYMPHOCYTES % (AUTO) 22.4 % (22.0-44.0); MEAN CORPUSCULAR HEMOGLOBIN 30.9 pg (26.0-34.0); MEAN CORPUSCULAR HGB CONC 34.9 G/dL (31.0-37.0); MEAN CORPUSCULAR VOLUME 89 fL (80-100); MONOCYTES # (AUTO) 1.2 K/uL (0.1-1.0); MONOCYTES % (AUTO) 6.2 % (2.0-9.0); NEUTROPHILS # (AUTO) 13.5 K/uL (1.8-7.7); NEUTROPHILS % (AUTO) 69.5 % (40.0-70.0); PLATELET COUNT (AUTO) 364 K/uL (150-450); RED BLOOD CELL COUNT(AUTO) 5.41 MIL/uL (4.50-5.90); RED CELL DISTRIBUTION WIDTH 14.2 % (11.5-14.5)
[2022-06-28 21:32] LABS: ANION GAP 12 mmol/L (8-16); CALCIUM, TOTAL 8.8 mg/dL (8.8-10.5); CARBON DIOXIDE 21 mmol/L (22-29); CHLORIDE 104 mmol/L (98-107); CREATININE 1.43 mg/dL (0.60-1.30); GLOMERULAR FILTR. RATE CALC 53 mL/min (>60); GLUCOSE,RANDOM 130 mg/dL (70-110); POTASSIUM 3.9 mmol/L (3.5-5.1); SODIUM SERUM 137 mmol/L (136-145)
[2022-06-28 21:38] LABS: ALANINE AMINOTRANSFERASE 20 U/L (12-78); ALBUMIN 3.7 g/dL (3.4-5.0); ALKALINE PHOSPHATASE 81 U/L (46-116); ASPARTATE AMINOTRANSFERASE 14 U/L (15-37); BILIRUBIN,TOTAL 0.4 mg/dL (0.1-1.0); TOTAL PROTEIN, SERUM 7.7 g/dL (6.4-8.2)
[2022-06-28] MEDS ORDERED: LORazepam 2 MG TABLET PO ONE (22:15)
[2022-06-29 00:28] LABS: APPEARANCE,URINE CLEAR (CLEAR); BILIRUBIN,URINE NEGATIVE (NEGATIVE); GLUCOSE, URINE (UA) NEGATIVE (NEGATIVE); KETONES,URINE NEGATIVE (NEGATIVE); LEUKOCYTE ESTERASE ,URINE NEGATIVE (NEGATIVE); NITRATE,URINE NEGATIVE (NEGATIVE); OCCULT BLOOD,URINE NEGATIVE (NEGATIVE); PH,URINE 6.5 (5.0-8.0); PROTEIN,URINE TRACE mg/dL (NEGATIVE)
[2022-06-29 00:33] LABS: AMPHET/METH SCREEN,URINE POSITIVE (NEGATIVE); BARBITURATE SCREEN, URINE NEGATIVE (NEGATIVE); BENZODIAZEPINES SCREEN,URINE NEGATIVE (NEGATIVE); CANNABINOID SCREEN,URINE NEGATIVE (NEGATIVE); COCAINE SCREEN,URINE NEGATIVE (NEGATIVE); METHADONE SCREEN, URINE NEGATIVE (NEGATIVE); OPIATE SCREEN,URINE NEGATIVE (NEGATIVE); PHENCYCLIDINE SCREEN,URINE NEGATIVE (NEGATIVE)
[2022-06-29] MEDS ORDERED: LIDOCAINE/PF 1% 2 ML VIAL IM ONE (00:45)
[2022-06-29] MEDS ORDERED: CefTRIAXone SODIUM 1 GM/VIAL IM ONE (00:45)
[2022-06-29] MEDS: HALOPERIDOL 5 MG TABLET PO PRN ×3 (07:17→21:01)
[2022-06-29] MEDS: LORazepam 2 MG TABLET PO PRN ×3 (07:17→21:01)
[2022-06-29 14:34] VITALS: BP 142/76
[2022-06-29 16:02] VITALS: BP 111/71
[2022-06-29 18:41] LABS: GLUCOMETER DEV NAME(LOC) POC.BV
[2022-06-29] MEDS: ZOLPIDEM TARTRATE 10 MG TABLET PO PRN (20:27)
[2022-06-29] MEDS ORDERED: MAG HYDROX/AL HYDROX/SIMETH ES 30 ML SUSPENSION UDCUP PO PRN (23:30)
[2022-06-29] MEDS: LevETIRAcetam 500 MG TABLET PO SCH (23:30)
[2022-06-29] MEDS ORDERED: OMEPRAZOLE 20 MG CAPSULE PO PRN (23:30)
[2022-06-29] MEDS ORDERED: ALBUTEROL SULFATE HFA 90 MCG/PUFF 8 GM INHALER IH PRN (23:30)
[2022-06-29] MEDS ORDERED: DOCUSATE SODIUM 100 MG CAPSULE PO PRN (23:30)
[2022-06-29] MEDS ORDERED: ONDANSETRON HCL 4 MG TABLET PO PRN (23:30)
[2022-06-29] MEDS ORDERED: LOPERAMIDE HCL 2 MG CAPSULE PO PRN (23:30)
[2022-06-29] MEDS ORDERED: BACITRACIN 28 GM OINTMENT TP PRN (23:30)
[2022-06-29] MEDS ORDERED: ACETAMINOPHEN 325 MG TABLET PO PRN (23:30)
[2022-06-29] MEDS ORDERED: MAGNESIUM HYDROXIDE SUSPENSION 30 ML UDCUP PO PRN (23:30)
[2022-06-29] MEDS ORDERED: PETROLATUM,WHITE 28 GM JELLY TP PRN (23:30)
[2022-06-29] MEDS ORDERED: CloNIDine HCL 0.1 MG TABLET PO PRN (23:30)
[2022-06-29] MEDS ORDERED: IBUPROFEN 600 MG TABLET PO PRN (23:30)
[2022-06-30] MEDS: LORazepam 2 MG TABLET PO PRN ×3 (08:02→20:31)
[2022-06-30] MEDS: LevETIRAcetam 500 MG TABLET PO SCH ×2 (08:03→16:28)
[2022-06-30] MEDS: DIVALPROEX SODIUM 500 MG DR TABLET PO SCH ×2 (09:40→16:28)
[2022-06-30 10:01] VITALS: BP 111/71
[2022-06-30] MEDS: HALOPERIDOL 5 MG TABLET PO PRN ×2 (14:49→20:31)
[2022-06-30] MEDS: OLANZapine 10 MG TABLET PO SCH (20:00)
[2022-06-30] MEDS: ZOLPIDEM TARTRATE 10 MG TABLET PO PRN (20:00)
[2022-06-30 20:12] VITALS: BP 18/97
[2022-07-01] MEDS: DIVALPROEX SODIUM 500 MG DR TABLET PO SCH ×3 (09:00→16:54)
[2022-07-01] MEDS: LevETIRAcetam 500 MG TABLET PO SCH ×3 (09:00→16:53)
[2022-07-01] MEDS: LORazepam 2 MG TABLET PO PRN ×3 (10:52→20:56)
[2022-07-01] MEDS: HALOPERIDOL 5 MG TABLET PO PRN (10:52)
[2022-07-01 20:34] VITALS: BP 112/78
[2022-07-01] MEDS: OLANZapine 10 MG TABLET PO SCH (20:56)
[2022-07-01] MEDS: ZOLPIDEM TARTRATE 10 MG TABLET PO PRN (20:56)
[2022-07-02] MEDS: DIVALPROEX SODIUM 500 MG DR TABLET PO SCH (08:01)
[2022-07-02] MEDS: LevETIRAcetam 500 MG TABLET PO SCH (08:01)
== END 2022-07-02 14:25 | disposition home or self-care (01) | DRG 750 ==
LOC: EMS 20:38 → B3A 06-29 09:44
PROVIDERS: ADMIT Psychiatry & Neurology Psychiatry; ATTEND Psychiatry & Neurology Psychiatry
DX: F25.1 Schizoaffective disorder, depressive type (principal); G40.909 Epilepsy, unspecified, not intractable, without status epilepticus; R45.851 Suicidal ideations; F15.10 Other stimulant abuse, uncomplicated; F31.9 Bipolar disorder, unspecified; F41.9 Anxiety disorder, unspecified; Z20.822 Contact with and (suspected) exposure to COVID-19; G47.00 Insomnia, unspecified; F19.10 Other psychoactive substance abuse, uncomplicated; Z87.891 Personal history of nicotine dependence; Z91.51 Personal history of suicidal behavior; Z79.899 Other long term (current) drug therapy; Z91.148 Patient's other noncompliance with medication regimen for other reason
CPT/HCPCS: 71045; 80053; 80164; 80307; 81003; 85025; 87081; G0480; J0696; J3490; 36415-L1; 36415-TC

== ENCOUNTER 2022-08-22 04:49 | Emergency (ER) | payer MEDICAID, OTHER ==
[~2022-08-22] VITALS: Ht 182.9 cm; Wt 104.5 kg
[~2022-08-22 04:49] MED LIST changes: -MELA5TAB40 PO
[2022-08-22 05:10] VITALS: BP 136/92; PULSE 100; RESP 16; TEMP 98.3
[2022-08-22] MEDS ORDERED: HYDR-4808 PO (05:18)
== END 2022-08-22 08:08 | disposition left against medical advice (07) ==
LOC: EMS 04:51
DX: R44.1 Visual hallucinations (principal); Z53.21 Procedure and treatment not carried out due to patient leaving prior to being seen by health care provider
CPT/HCPCS: 99281; Z7502

== ENCOUNTER 2022-09-23 07:39 | Emergency (ER) | payer MEDICAID, OTHER ==
[~2022-09-23] VITALS: Ht 190.5 cm; Wt 102.3 kg
[~2022-09-23 07:39] MED LIST changes: -DIVA-112 PO; +DIVA500T69 PO; +FLUO20CA36 PO; +LEVE250T PO; +MELA5TAB40 PO; +NALT50TA PO; -OLAN10TA74 PO; +OLAN5TAB94 PO; +OMEG-135 PO
[2022-09-23 07:43] VITALS: TEMP 98
[2022-09-23] MEDS ORDERED: CefTRIAXone SODIUM 1 GM/VIAL IM ONE (08:45)
[2022-09-23] MEDS ORDERED: LIDOCAINE/PF 1% 2 ML VIAL IM ONE (08:45)
[2022-09-23] MEDS ORDERED: CEPH-558 PO (11:45)
[2022-09-23] MEDS ORDERED: SULF-261 PO (11:45)
[2022-09-23 11:50] VITALS: BP 137/85; PULSE 109; RESP 18
== END 2022-09-23 12:03 | disposition home or self-care (01) ==
LOC: EMS 07:39
DX: L03.114 Cellulitis of left upper limb (principal); F20.9 Schizophrenia, unspecified; F41.9 Anxiety disorder, unspecified; F31.9 Bipolar disorder, unspecified; F17.210 Nicotine dependence, cigarettes, uncomplicated; F12.90 Cannabis use, unspecified, uncomplicated; F14.90 Cocaine use, unspecified, uncomplicated
CPT/HCPCS: 99283; 96372; J0696; J3490

== ENCOUNTER 2022-10-01 13:31 | Inpatient (IN) | payer MEDICAID, OTHER ==
[~2022-10-01] VITALS: Ht 190.5 cm; Wt 108.4 kg
[~2022-10-01 13:31] MED LIST changes: +CEPH-558 PO; +SULF-261 PO
[2022-10-01 14:03] LABS: EOSINOPHILS % (AUTO) 3.4 % (1.0-6.0); HEMATOCRIT 46.4 % (41-53); HEMOGLOBIN 15.4 g/dL (13.5-17.5); LYMPHOCYTES # (AUTO) 3.5 K/uL (1.0-4.8); LYMPHOCYTES % (AUTO) 31.3 % (22.0-44.0); MEAN CORPUSCULAR HEMOGLOBIN 29.7 pg (26.0-34.0); MEAN CORPUSCULAR HGB CONC 33.1 G/dL (31.0-37.0); MEAN CORPUSCULAR VOLUME 90 fL (80-100); MONOCYTES % (AUTO) 9.3 % (2.0-9.0); NEUTROPHILS # (AUTO) 6.2 K/uL (1.8-7.7); PLATELET COUNT (AUTO) 428 K/uL (150-450); RED BLOOD CELL COUNT(AUTO) 5.18 MIL/uL (4.50-5.90); RED CELL DISTRIBUTION WIDTH 13.6 % (11.5-14.5)
[2022-10-01 14:15] LABS: ANION GAP 16 mmol/L (8-16); CALCIUM, TOTAL 8.3 mg/dL (8.8-10.5); CARBON DIOXIDE 24 mmol/L (22-29); CHLORIDE 103 mmol/L (98-107); CREATININE 1.16 mg/dL (0.60-1.30); GLOMERULAR FILTR. RATE CALC > 60 mL/min (>60); GLUCOSE,RANDOM 92 mg/dL (70-110); POTASSIUM 4.2 mmol/L (3.5-5.1); SODIUM SERUM 143 mmol/L (136-145)
[2022-10-01 14:20] LABS: ALANINE AMINOTRANSFERASE 16 U/L (12-78); ALBUMIN 3.2 g/dL (3.4-5.0); ALKALINE PHOSPHATASE 78 U/L (46-116); ASPARTATE AMINOTRANSFERASE 11 U/L (15-37); BILIRUBIN,TOTAL 0.4 mg/dL (0.1-1.0); TOTAL PROTEIN, SERUM 6.8 g/dL (6.4-8.2)
[2022-10-01] MEDS ORDERED: LORazepam 2 MG TABLET PO PRN (15:30)
[2022-10-01] MEDS ORDERED: OLANZapine 5 MG RAPDIS TABLET PO PRN ×2 (15:30→19:45)
[2022-10-01] MEDS ORDERED: ACETAMINOPHEN 325 MG TABLET PO PRN (19:45)
[2022-10-01] MEDS ORDERED: MAGNESIUM HYDROXIDE SUSPENSION 30 ML UDCUP PO PRN (19:45)
[2022-10-01] MEDS ORDERED: PROMETHAZINE HCL 25 MG TABLET PO PRN (19:45)
[2022-10-01] MEDS ORDERED: LOPERAMIDE HCL 2 MG CAPSULE PO PRN ×2 (19:45)
[2022-10-01] MEDS ORDERED: GuaiFENesin/D-METHORPHAN [SUGAR-FREE] 200-20MG/10 ML SYRUP UDCUP PO PRN (19:45)
[2022-10-01] MEDS ORDERED: DIAZEPAM 10 MG TABLET PO PRN (19:45)
[2022-10-01] MEDS ORDERED: MAG HYDROX/AL HYDROX/SIMETH ES 30 ML SUSPENSION UDCUP PO PRN (19:45)
[2022-10-01] MEDS ORDERED: TUBERCULIN, PURIFIED PROTEIN DERIVATIVE 5 TU/0.1 ML SYRINGE ID ONE (19:45)
[2022-10-01] MEDS ORDERED: CYANOCOBALAMIN 1,000 MCG/ML VIAL IM ONE (19:45)
[2022-10-01 20:30] VITALS: BP 133/77; PULSE 70; RESP 18; TEMP 97.4; O2SAT 99
[2022-10-01 21:19] LABS: COVID AG,FIA SOURCE NASAL SWAB
[2022-10-01 21:30] VITALS: BP 109/60; PULSE 88; RESP 18; TEMP 97.6; O2SAT 98
[2022-10-01 21:46] LABS: APPEARANCE,URINE CLEAR (CLEAR); BILIRUBIN,URINE NEGATIVE (NEGATIVE); GLUCOSE, URINE (UA) NEGATIVE (NEGATIVE); KETONES,URINE TRACE mg/dL (NEGATIVE); LEUKOCYTE ESTERASE ,URINE TRACE (NEGATIVE); NITRATE,URINE NEGATIVE (NEGATIVE); OCCULT BLOOD,URINE NEGATIVE (NEGATIVE); PH,URINE 6.5 (5.0-8.0); PROTEIN,URINE 30-70 mg/dL (NEGATIVE); SPECIFIC GRAVITIY, URINE 1.036 (1.003-1.030)
[2022-10-01 21:52] LABS: AMPHET/METH SCREEN,URINE NEGATIVE (NEGATIVE); BARBITURATE SCREEN, URINE NEGATIVE (NEGATIVE); BENZODIAZEPINES SCREEN,URINE NEGATIVE (NEGATIVE); CANNABINOID SCREEN,URINE NEGATIVE (NEGATIVE); COCAINE SCREEN,URINE NEGATIVE (NEGATIVE); METHADONE SCREEN, URINE NEGATIVE (NEGATIVE); OPIATE SCREEN,URINE NEGATIVE (NEGATIVE); PHENCYCLIDINE SCREEN,URINE NEGATIVE (NEGATIVE)
[2022-10-01] MEDS: OLANZapine 5 MG RAPDIS TABLET PO SCH (21:54)
[2022-10-01] MEDS: DIVALPROEX SODIUM 500 MG ER TABLET PO SCH (21:54)
[2022-10-01] MEDS: HydrOXYzine PAMOATE 50 MG CAPSULE PO PRN (21:55)
[2022-10-01] MEDS: ZOLPIDEM TARTRATE 10 MG TABLET PO PRN (21:55)
[2022-10-01 21:59] LABS: BACTERIA,URINE None Seen /HPF (None Seen); RBC,URINE None Seen /HPF (0-2)
[2022-10-01 22:30] VITALS: BP 110/70; PULSE 75; RESP 18; TEMP 97.5; O2SAT 97
[2022-10-01 23:30] VITALS: BP 115/77; PULSE 69; RESP 17; TEMP 97.9; O2SAT 97
[2022-10-02] VITALS (7 sets, daily range): BP systolic 95–125; BP diastolic 57–80; PULSE 69–75; RESP 17–18; TEMP 97.5–98; O2SAT 96–98
[2022-10-02] MEDS ORDERED: DIAZEPAM 10 MG TABLET PO PRN (07:00)
[2022-10-02 08:08] LABS: HEMOGLOBIN A1C 5.1 % (3.8-5.6)
[2022-10-02 08:23] LABS: CHOL/HDL RATIO 6.3 (4.2-7.3); FREE T4 (FREE THYROXINE) 0.82 ng/dL (0.76-1.46); THYROID STIMULATING HORMONE 1.44 uIU/mL (0.36-3.74)
[2022-10-02] MEDS: MULTIVITAMINS WITH MINERALS, THERAPEUTIC TABLET PO SCH (09:09)
[2022-10-02] MEDS: DIAZEPAM 10 MG TABLET PO SCH ×4 (09:09→20:40)
[2022-10-02] MEDS: FLUoxetine HCL 20 MG CAPSULE PO SCH (09:09)
[2022-10-02] MEDS: FOLIC ACID 1 MG TABLET PO SCH (09:09)
[2022-10-02] MEDS: LevETIRAcetam 250 MG TABLET PO SCH ×2 (09:09→16:31)
[2022-10-02] MEDS: THIAMINE 100 MG TABLET PO SCH ×2 (09:09→16:31)
[2022-10-02] MEDS: DIVALPROEX SODIUM 500 MG ER TABLET PO SCH (20:40)
[2022-10-02] MEDS: OLANZapine 5 MG RAPDIS TABLET PO SCH (20:40)
[2022-10-02] MEDS: HydrOXYzine PAMOATE 50 MG CAPSULE PO PRN (20:40)
[2022-10-02] MEDS: ZOLPIDEM TARTRATE 10 MG TABLET PO PRN (21:17)
[2022-10-03 03:30] VITALS: BP 106/65; PULSE 74; RESP 18; TEMP 97.6; O2SAT 98
[2022-10-03 08:20] VITALS: BP 113/81; PULSE 81; RESP 18; TEMP 97.2; O2SAT 97
[2022-10-03] MEDS: FOLIC ACID 1 MG TABLET PO SCH (09:36)
[2022-10-03] MEDS: LevETIRAcetam 250 MG TABLET PO SCH ×2 (09:36→17:17)
[2022-10-03] MEDS: THIAMINE 100 MG TABLET PO SCH ×2 (09:36→17:17)
[2022-10-03] MEDS: FLUoxetine HCL 20 MG CAPSULE PO SCH (09:37)
[2022-10-03] MEDS: DIAZEPAM 10 MG TABLET PO SCH ×4 (09:37→20:39)
[2022-10-03] MEDS: MULTIVITAMINS WITH MINERALS, THERAPEUTIC TABLET PO SCH (09:37)
[2022-10-03] MEDS: OLANZapine 5 MG RAPDIS TABLET PO SCH (20:39)
[2022-10-03] MEDS: DIVALPROEX SODIUM 500 MG ER TABLET PO SCH (20:39)
[2022-10-03] MEDS: HydrOXYzine PAMOATE 50 MG CAPSULE PO PRN (22:03)
[2022-10-03] MEDS: ZOLPIDEM TARTRATE 10 MG TABLET PO PRN (22:03)
[2022-10-03 22:19] VITALS: BP 102/67; PULSE 69; RESP 18; TEMP 98; O2SAT 95
[2022-10-03 22:21] VITALS: BP 102/67; PULSE 69; RESP 18; TEMP 98; O2SAT 95
[2022-10-04] VITALS (7 sets, daily range): BP systolic 92–110; BP diastolic 51–74; PULSE 65–71; RESP 18; TEMP 97.9–98.2; O2SAT 97–100
[2022-10-04] MEDS ORDERED: DIAZEPAM 5 MG TABLET PO PRN (07:00)
[2022-10-04] MEDS: LevETIRAcetam 250 MG TABLET PO SCH ×2 (10:04→17:14)
[2022-10-04] MEDS: THIAMINE 100 MG TABLET PO SCH ×2 (10:04→17:14)
[2022-10-04] MEDS: FOLIC ACID 1 MG TABLET PO SCH (10:05)
[2022-10-04] MEDS: MULTIVITAMINS WITH MINERALS, THERAPEUTIC TABLET PO SCH (10:06)
[2022-10-04] MEDS: DIAZEPAM 5 MG TABLET PO SCH ×4 (10:06→21:58)
[2022-10-04] MEDS: FLUoxetine HCL 20 MG CAPSULE PO SCH (10:06)
[2022-10-04] MEDS: DIVALPROEX SODIUM 500 MG ER TABLET PO SCH (21:58)
[2022-10-04] MEDS: OLANZapine 5 MG RAPDIS TABLET PO SCH (21:58)
[2022-10-05 00:39] VITALS: RESP 18
[2022-10-05 04:14] VITALS: RESP 18
[2022-10-05] MEDS ORDERED: DIAZEPAM 5 MG TABLET PO PRN (07:00)
[2022-10-05] MEDS: LevETIRAcetam 250 MG TABLET PO SCH ×2 (08:52→17:06)
[2022-10-05] MEDS: FOLIC ACID 1 MG TABLET PO SCH (08:52)
[2022-10-05] MEDS: THIAMINE 100 MG TABLET PO SCH ×2 (08:52→17:03)
[2022-10-05] MEDS: FLUoxetine HCL 20 MG CAPSULE PO SCH (08:54)
[2022-10-05] MEDS: MULTIVITAMINS WITH MINERALS, THERAPEUTIC TABLET PO SCH (08:55)
[2022-10-05 09:13] VITALS: BP 120/87; PULSE 76; RESP 18; TEMP 97.8
[2022-10-05 13:24] VITALS: RESP 18; TEMP 97.6
[2022-10-05 16:00] VITALS: TEMP 97.1
[2022-10-05] MEDS: OLANZapine 5 MG RAPDIS TABLET PO SCH (21:31)
[2022-10-05] MEDS: DIVALPROEX SODIUM 500 MG ER TABLET PO SCH (21:31)
[2022-10-05 22:47] VITALS: BP 107/71; PULSE 76; RESP 18; TEMP 98.1; O2SAT 76
[2022-10-06] VITALS (7 sets, daily range): BP systolic 105–135; BP diastolic 60–73; PULSE 60–84; RESP 17–19; TEMP 97.1–97.6; O2SAT 97–98
[2022-10-06] MEDS: MULTIVITAMINS WITH MINERALS, THERAPEUTIC TABLET PO SCH (08:18)
[2022-10-06] MEDS: THIAMINE 100 MG TABLET PO SCH ×2 (08:18→16:53)
[2022-10-06] MEDS: LevETIRAcetam 250 MG TABLET PO SCH ×2 (08:18→16:53)
[2022-10-06] MEDS: FOLIC ACID 1 MG TABLET PO SCH (08:18)
[2022-10-06] MEDS: FLUoxetine HCL 20 MG CAPSULE PO SCH (08:18)
[2022-10-06] MEDS: NICOTINE 21 MG/24 HOUR PATCH TD SCH (08:20)
[2022-10-06] MEDS: DIVALPROEX SODIUM 500 MG ER TABLET PO SCH (21:34)
[2022-10-06] MEDS: OLANZapine 10 MG RAPDIS TABLET PO SCH (21:34)
[2022-10-06] MEDS: ZOLPIDEM TARTRATE 10 MG TABLET PO PRN (21:41)
[2022-10-07 00:12] VITALS: RESP 18
[2022-10-07 05:59] VITALS: RESP 17
[2022-10-07] MEDS: THIAMINE 100 MG TABLET PO SCH ×2 (08:54→16:18)
[2022-10-07] MEDS: MULTIVITAMINS WITH MINERALS, THERAPEUTIC TABLET PO SCH (08:54)
[2022-10-07] MEDS: LevETIRAcetam 250 MG TABLET PO SCH ×2 (08:54→16:18)
[2022-10-07] MEDS: FOLIC ACID 1 MG TABLET PO SCH (08:54)
[2022-10-07] MEDS: NICOTINE 21 MG/24 HOUR PATCH TD SCH (08:56)
[2022-10-07] MEDS ORDERED: FLUoxetine HCL 20 MG CAPSULE PO SCH (09:00)
[2022-10-07] MEDS ORDERED: MODAFINIL 100 MG TABLET PO SCH (09:00)
[2022-10-07 09:33] VITALS: BP 118/85; PULSE 74; RESP 17; TEMP 97.7
[2022-10-07 12:43] VITALS: TEMP 97.2
[2022-10-07 17:56] VITALS: RESP 18; TEMP 97.8
[2022-10-07] MEDS: DIVALPROEX SODIUM 500 MG ER TABLET PO SCH (21:25)
[2022-10-07] MEDS: OLANZapine 10 MG RAPDIS TABLET PO SCH (21:25)
[2022-10-07 21:53] VITALS: BP 110/78; PULSE 94; RESP 18; TEMP 97.8; O2SAT 97
[2022-10-07] MEDS: ZOLPIDEM TARTRATE 10 MG TABLET PO PRN (22:16)
[2022-10-08] VITALS (7 sets, daily range): BP systolic 105–134; BP diastolic 63–84; PULSE 77–96; RESP 18; TEMP 97.1–98; O2SAT 97
[2022-10-08] MEDS: THIAMINE 100 MG TABLET PO SCH ×2 (10:52→17:29)
[2022-10-08] MEDS: LevETIRAcetam 250 MG TABLET PO SCH ×2 (10:53→17:30)
[2022-10-08] MEDS: FOLIC ACID 1 MG TABLET PO SCH (10:53)
[2022-10-08] MEDS: FLUoxetine HCL 20 MG CAPSULE PO SCH (10:53)
[2022-10-08] MEDS: NICOTINE 21 MG/24 HOUR PATCH TD SCH (10:55)
[2022-10-08] MEDS: MULTIVITAMINS WITH MINERALS, THERAPEUTIC TABLET PO SCH (10:56)
[2022-10-08] MEDS: MODAFINIL 100 MG TABLET PO SCH (10:57)
[2022-10-08] MEDS: OLANZapine 10 MG RAPDIS TABLET PO SCH (20:31)
[2022-10-08] MEDS: DIVALPROEX SODIUM 500 MG ER TABLET PO SCH (20:32)
[2022-10-08] MEDS: ZOLPIDEM TARTRATE 10 MG TABLET PO PRN (20:37)
[2022-10-09 01:07] VITALS: RESP 18
[2022-10-09 04:21] VITALS: RESP 18
[2022-10-09] MEDS: NICOTINE 21 MG/24 HOUR PATCH TD SCH (08:55)
[2022-10-09] MEDS: THIAMINE 100 MG TABLET PO SCH ×2 (08:55→16:11)
[2022-10-09] MEDS: FOLIC ACID 1 MG TABLET PO SCH (08:56)
[2022-10-09] MEDS: FLUoxetine HCL 20 MG CAPSULE PO SCH (08:56)
[2022-10-09] MEDS: LevETIRAcetam 250 MG TABLET PO SCH ×2 (08:56→16:11)
[2022-10-09] MEDS: MULTIVITAMINS WITH MINERALS, THERAPEUTIC TABLET PO SCH (08:57)
[2022-10-09] MEDS: MODAFINIL 100 MG TABLET PO SCH (08:58)
[2022-10-09 09:06] VITALS: BP 121/86; PULSE 85; RESP 17; TEMP 97.7
[2022-10-09 13:11] VITALS: TEMP 97.9
[2022-10-09 16:00] VITALS: TEMP 98.7
[2022-10-09] MEDS: ZOLPIDEM TARTRATE 10 MG TABLET PO PRN (21:08)
[2022-10-09] MEDS: DIVALPROEX SODIUM 500 MG ER TABLET PO SCH (21:08)
[2022-10-09] MEDS: OLANZapine 10 MG RAPDIS TABLET PO SCH (21:08)
[2022-10-09 21:45] VITALS: BP 117/73; PULSE 97; RESP 19; TEMP 98.1; O2SAT 98
[2022-10-10 00:08] VITALS: RESP 18
[2022-10-10 05:35] VITALS: RESP 18
[2022-10-10 08:00] VITALS: BP 109/65; PULSE 71; RESP 17; TEMP 97.4
[2022-10-10] MEDS: NICOTINE 21 MG/24 HOUR PATCH TD SCH (08:58)
[2022-10-10] MEDS: THIAMINE 100 MG TABLET PO SCH ×2 (08:58→16:23)
[2022-10-10] MEDS: MODAFINIL 100 MG TABLET PO SCH (08:58)
[2022-10-10] MEDS: FLUoxetine HCL 20 MG CAPSULE PO SCH (08:58)
[2022-10-10] MEDS: MULTIVITAMINS WITH MINERALS, THERAPEUTIC TABLET PO SCH (08:59)
[2022-10-10] MEDS: FOLIC ACID 1 MG TABLET PO SCH (08:59)
[2022-10-10] MEDS: LevETIRAcetam 250 MG TABLET PO SCH ×2 (08:59→16:23)
[2022-10-10 16:22] VITALS: RESP 17; TEMP 97.6
[2022-10-10 20:37] VITALS: BP 120/60; PULSE 68; RESP 19; TEMP 98.3; O2SAT 98
[2022-10-10] MEDS: DIVALPROEX SODIUM 500 MG ER TABLET PO SCH (20:49)
[2022-10-10] MEDS: OLANZapine 10 MG RAPDIS TABLET PO SCH (20:49)
[2022-10-11 06:11] VITALS: RESP 18; TEMP 97.5
[2022-10-11] MEDS: NICOTINE 21 MG/24 HOUR PATCH TD SCH (09:00)
[2022-10-11] MEDS: FOLIC ACID 1 MG TABLET PO SCH (09:20)
[2022-10-11] MEDS: MODAFINIL 100 MG TABLET PO SCH (09:20)
[2022-10-11] MEDS: THIAMINE 100 MG TABLET PO SCH ×2 (09:20→17:22)
[2022-10-11] MEDS: MULTIVITAMINS WITH MINERALS, THERAPEUTIC TABLET PO SCH (09:20)
[2022-10-11] MEDS: FLUoxetine HCL 20 MG CAPSULE PO SCH (09:20)
[2022-10-11] MEDS: LevETIRAcetam 250 MG TABLET PO SCH ×2 (09:23→17:23)
[2022-10-11 12:39] VITALS: RESP 18; TEMP 97.8
[2022-10-11 16:00] VITALS: RESP 17; TEMP 98
[2022-10-11] MEDS: DIVALPROEX SODIUM 500 MG ER TABLET PO SCH (21:02)
[2022-10-11] MEDS: ZOLPIDEM TARTRATE 10 MG TABLET PO PRN (21:03)
[2022-10-11] MEDS: OLANZapine 10 MG RAPDIS TABLET PO SCH (21:03)
[2022-10-11 21:46] VITALS: RESP 18
[2022-10-12 02:13] VITALS: RESP 18
[2022-10-12 05:07] VITALS: RESP 18
[2022-10-12] MEDS: LevETIRAcetam 250 MG TABLET PO SCH ×2 (09:26→16:10)
[2022-10-12] MEDS: FLUoxetine HCL 20 MG CAPSULE PO SCH (09:26)
[2022-10-12] MEDS: MULTIVITAMINS WITH MINERALS, THERAPEUTIC TABLET PO SCH (09:26)
[2022-10-12] MEDS: MODAFINIL 100 MG TABLET PO SCH (09:26)
[2022-10-12] MEDS: NICOTINE 21 MG/24 HOUR PATCH TD SCH (09:30)
[2022-10-12 10:33] VITALS: RESP 17; TEMP 97.8
[2022-10-12 12:04] VITALS: RESP 18; TEMP 97.7
[2022-10-12 17:10] VITALS: RESP 18; TEMP 97.8
[2022-10-12] MEDS: OLANZapine 10 MG RAPDIS TABLET PO SCH (21:27)
[2022-10-12] MEDS: DIVALPROEX SODIUM 500 MG ER TABLET PO SCH (21:27)
[2022-10-12 21:56] VITALS: BP 134/90; RESP 19; TEMP 98.1; O2SAT 99
[2022-10-12] MEDS: ZOLPIDEM TARTRATE 10 MG TABLET PO PRN (22:07)
[2022-10-13 00:11] VITALS: RESP 18
[2022-10-13 04:05] VITALS: RESP 18
[2022-10-13 08:00] VITALS: BP 105/61; PULSE 63; RESP 18; TEMP 97.2; O2SAT 95
[2022-10-13] MEDS: FLUoxetine HCL 20 MG CAPSULE PO SCH (09:50)
[2022-10-13] MEDS: MODAFINIL 100 MG TABLET PO SCH (09:50)
[2022-10-13] MEDS: MULTIVITAMINS WITH MINERALS, THERAPEUTIC TABLET PO SCH (09:50)
[2022-10-13] MEDS: LevETIRAcetam 250 MG TABLET PO SCH (09:51)
[2022-10-13] MEDS: NICOTINE 21 MG/24 HOUR PATCH TD SCH (10:45)
[2022-10-13] MEDS ORDERED: LEVE250T PO (11:20)
[2022-10-13] MEDS ORDERED: FLUO20CA36 PO (11:20)
[2022-10-13] MEDS ORDERED: DIVA500T69 PO (11:20)
[2022-10-13] MEDS ORDERED: MODA100T65 PO (11:20)
[2022-10-13] MEDS ORDERED: OLAN10TA26 PO (11:20)
[2022-10-13] MEDS ORDERED: MELA5TAB40 PO (11:20)
[2022-10-13] MEDS ORDERED: NALT50TA PO (11:20)
[2022-10-14] MEDS ORDERED: FLUoxetine HCL 20 MG CAPSULE PO SCH (09:00)
== END 2022-10-13 13:45 | disposition home or self-care (01) | DRG 750 ==
LOC: EMS 14:00 → 3EI 17:12 → 3EX 10-02 14:19 → 3EI 10-09 20:55
PROVIDERS: ADMIT Psychiatry & Neurology Psychiatry; ATTEND Psychiatry & Neurology Psychiatry
DX: F25.1 Schizoaffective disorder, depressive type (principal); R45.851 Suicidal ideations; J44.9 Chronic obstructive pulmonary disease, unspecified; F41.9 Anxiety disorder, unspecified; K76.9 Liver disease, unspecified; K21.9 Gastro-esophageal reflux disease without esophagitis; F19.20 Other psychoactive substance dependence, uncomplicated; F17.210 Nicotine dependence, cigarettes, uncomplicated; Z55.9 Problems related to education and literacy, unspecified; Z20.822 Contact with and (suspected) exposure to COVID-19; Z59.9 Problem related to housing and economic circumstances, unspecified; Z63.9 Problem related to primary support group, unspecified; Z65.3 Problems related to other legal circumstances; Z91.51 Personal history of suicidal behavior; Z91.199 Patient's noncompliance with other medical treatment and regimen due to unspecified reason; Z79.899 Other long term (current) drug therapy; Z59.00 Homelessness unspecified
CPT/HCPCS: 80053; 80061; 80164; 80307; 81001; 83036; 84439; 84443; 85025; 86592; 87081; 99285; G0378; G0480; G0482; J3420

== ENCOUNTER 2022-11-06 15:04 | Inpatient (IN) | payer MEDICAID, OTHER ==
[~2022-11-06] VITALS: Ht 190.5 cm; Wt 107.3 kg
[~2022-11-06 15:04] MED LIST changes: -CEPH-558 PO; -LEVE500T8 PO; +MODA100T65 PO; +OLAN10TA26 PO; -OLAN5TAB94 PO; -OMEG-135 PO; -SULF-261 PO
[2022-11-06 16:24] LABS: PH,URINE DRUG SCREEN 5.5 (5.0-8.0)
[2022-11-06 16:28] LABS: ALCOHOL, URINE DRUG SCREEN POSITIVE (NEGATIVE); AMPHET/METH SCREEN,URINE NEGATIVE (NEGATIVE); BARBITURATE SCREEN, URINE NEGATIVE (NEGATIVE); BENZODIAZEPINES SCREEN,URINE NEGATIVE (NEGATIVE); CANNABINOID SCREEN,URINE NEGATIVE (NEGATIVE); COCAINE SCREEN,URINE NEGATIVE (NEGATIVE); METHADONE SCREEN, URINE NEGATIVE (NEGATIVE); OPIATE SCREEN,URINE NEGATIVE (NEGATIVE); PHENCYCLIDINE SCREEN,URINE NEGATIVE (NEGATIVE)
[2022-11-06 16:50] LABS: BASOPHILS % (AUTO) 0.6 % (0.0-2.0); HEMATOCRIT 47.2 % (41-53); HEMOGLOBIN 16.1 g/dL (13.5-17.5); LYMPHOCYTES # (AUTO) 3.2 K/uL (1.0-4.8); MEAN CORPUSCULAR HEMOGLOBIN 31.2 pg (26.0-34.0); MEAN CORPUSCULAR HGB CONC 34.2 G/dL (31.0-37.0); MEAN CORPUSCULAR VOLUME 91 fL (80-100); MONOCYTES # (AUTO) 0.8 K/uL (0.1-1.0); MONOCYTES % (AUTO) 6.9 % (2.0-9.0); NEUTROPHILS # (AUTO) 7.5 K/uL (1.8-7.7); NEUTROPHILS % (AUTO) 63.5 % (40.0-70.0); PLATELET COUNT (AUTO) 309 K/uL (150-450); RED BLOOD CELL COUNT(AUTO) 5.18 MIL/uL (4.50-5.90); RED CELL DISTRIBUTION WIDTH 14.7 % (11.5-14.5); WHITE BLOOD COUNT (AUTO) 11.8 K/uL (4.5-11.0)
[2022-11-06 17:01] LABS: ANION GAP 11 mmol/L (8-16); CALCIUM, TOTAL 9.2 mg/dL (8.8-10.5); CARBON DIOXIDE 23 mmol/L (22-29); CHLORIDE 104 mmol/L (98-107); CREATININE 0.89 mg/dL (0.60-1.30); GLOMERULAR FILTR. RATE CALC > 60 mL/min (>60); GLUCOSE,RANDOM 94 mg/dL (70-110); POTASSIUM 4.5 mmol/L (3.5-5.1); SODIUM SERUM 138 mmol/L (136-145); UREA NITROGEN, BLOOD 14 mg/dL (7-18)
[2022-11-06 17:07] LABS: ALANINE AMINOTRANSFERASE 13 U/L (12-78); ALBUMIN 3.7 g/dL (3.4-5.0); ALKALINE PHOSPHATASE 70 U/L (46-116); ASPARTATE AMINOTRANSFERASE 13 U/L (15-37); BILIRUBIN,TOTAL 0.4 mg/dL (0.1-1.0); TOTAL PROTEIN, SERUM 7.6 g/dL (6.4-8.2)
[2022-11-06 17:24] LABS: ALCOHOL, BLOOD (SERUM) 64 mg/dL (0-10)
[2022-11-06] MEDS ORDERED: OLANZapine 5 MG TABLET PO ONE (17:45)
[2022-11-06] MEDS ORDERED: LORazepam 1 MG TABLET PO ONE (17:45)
[2022-11-06] MEDS ORDERED: DiphenhydrAMINE HCL 25 MG CAPSULE PO ONE (20:30)
[2022-11-06] MEDS ORDERED: HALOPERIDOL 5 MG TABLET PO ONE (20:30)
[2022-11-06] MEDS ORDERED: LORazepam 2 MG TABLET PO ONE (20:30)
[2022-11-06 20:41] LABS: COVID AG,FIA SOURCE NASAL SWAB
[2022-11-06 21:12] LABS: SARS-COV2 (COVID) ANTIGEN,FIA Negative (Negative)
[2022-11-07] MEDS: LORazepam 2 MG TABLET PO PRN ×2 (04:35→16:21)
[2022-11-07] MEDS: HALOPERIDOL 5 MG TABLET PO PRN ×2 (04:35→16:21)
[2022-11-07 04:40] VITALS: BP 128/82; PULSE 77; RESP 18; TEMP 97.3
[2022-11-07] MEDS ORDERED: PNEUMOCOCCAL VACCINE POLYVALENT 0.5 ML SYRINGE [PPSV23] IM. ONE (05:30)
[2022-11-07 09:01] VITALS: BP 100/59; PULSE 73; RESP 18; TEMP 97.9; O2SAT 98
[2022-11-07] MEDS: FLUoxetine HCL 20 MG CAPSULE PO SCH (10:57)
[2022-11-07] MEDS: NALTREXONE HCL 50 MG TABLET PO SCH (10:57)
[2022-11-07] MEDS: MODAFINIL 100 MG TABLET PO SCH (10:57)
[2022-11-07] MEDS: LevETIRAcetam 500 MG TABLET PO SCH ×2 (11:41→16:19)
[2022-11-07] MEDS ORDERED: LevETIRAcetam 250 MG TABLET PO SCH (17:00)
[2022-11-07 21:05] VITALS: BP 117/67; PULSE 83; RESP 18; TEMP 97.5; O2SAT 100
[2022-11-07] MEDS: MELATONIN 5 MG TABLET PO SCH (21:07)
[2022-11-07] MEDS: OLANZapine 10 MG RAPDIS TABLET PO SCH (21:08)
[2022-11-07] MEDS: DIVALPROEX SODIUM 500 MG ER TABLET PO SCH (21:09)
[2022-11-08 08:25] VITALS: BP 122/60; PULSE 83; RESP 19; TEMP 98; O2SAT 98
[2022-11-08] MEDS: MODAFINIL 100 MG TABLET PO SCH (09:40)
[2022-11-08] MEDS: FLUoxetine HCL 20 MG CAPSULE PO SCH (09:40)
[2022-11-08] MEDS: LevETIRAcetam 500 MG TABLET PO SCH ×2 (09:40→16:57)
[2022-11-08] MEDS: NALTREXONE HCL 50 MG TABLET PO SCH (09:40)
[2022-11-08] MEDS: LORazepam 2 MG TABLET PO PRN ×2 (12:24→21:16)
[2022-11-08] MEDS: HALOPERIDOL 5 MG TABLET PO PRN ×2 (12:24→21:16)
[2022-11-08 20:54] VITALS: BP 109/65; PULSE 69; RESP 18; TEMP 97.7; O2SAT 99
[2022-11-08] MEDS: DIVALPROEX SODIUM 500 MG ER TABLET PO SCH (21:15)
[2022-11-08] MEDS: OLANZapine 10 MG RAPDIS TABLET PO SCH (21:16)
[2022-11-08] MEDS: MELATONIN 5 MG TABLET PO SCH (21:16)
[2022-11-09] MEDS: MODAFINIL 100 MG TABLET PO SCH (08:22)
[2022-11-09] MEDS: FLUoxetine HCL 20 MG CAPSULE PO SCH (08:22)
[2022-11-09] MEDS: LevETIRAcetam 500 MG TABLET PO SCH ×2 (08:22→16:08)
[2022-11-09] MEDS: NALTREXONE HCL 50 MG TABLET PO SCH (08:22)
[2022-11-09 08:24] VITALS: BP 109/61; PULSE 65; RESP 17; TEMP 97.9; O2SAT 94
[2022-11-09] MEDS ORDERED: LOPERAMIDE HCL 2 MG CAPSULE PO PRN (12:00)
[2022-11-09] MEDS ORDERED: MAG HYDROX/AL HYDROX/SIMETH ES 30 ML SUSPENSION UDCUP PO PRN (12:00)
[2022-11-09] MEDS ORDERED: HydrOXYzine PAMOATE 50 MG CAPSULE PO PRN (12:00)
[2022-11-09] MEDS ORDERED: ACETAMINOPHEN 325 MG TABLET PO PRN (12:00)
[2022-11-09] MEDS ORDERED: MAGNESIUM HYDROXIDE SUSPENSION 30 ML UDCUP PO PRN (12:00)
[2022-11-09] MEDS ORDERED: PROMETHAZINE HCL 25 MG TABLET PO PRN (12:00)
[2022-11-09] MEDS ORDERED: GuaiFENesin/D-METHORPHAN [SUGAR-FREE] 200-20MG/10 ML SYRUP UDCUP PO PRN (12:00)
[2022-11-09] MEDS: THIAMINE 100 MG TABLET PO SCH (16:11)
[2022-11-09] MEDS: HALOPERIDOL 5 MG TABLET PO PRN (18:02)
[2022-11-09] MEDS: LORazepam 2 MG TABLET PO PRN (18:02)
[2022-11-09] MEDS: DIVALPROEX SODIUM 500 MG ER TABLET PO SCH (20:06)
[2022-11-09] MEDS: OLANZapine 10 MG RAPDIS TABLET PO SCH (20:06)
[2022-11-09] MEDS: MELATONIN 5 MG TABLET PO SCH ×2 (20:06→21:49)
[2022-11-09 20:07] VITALS: BP 114/64; PULSE 70; RESP 18; TEMP 98; O2SAT 97
[2022-11-10] MEDS: MODAFINIL 100 MG TABLET PO SCH (08:07)
[2022-11-10] MEDS: THIAMINE 100 MG TABLET PO SCH ×2 (08:07→16:45)
[2022-11-10] MEDS: NALTREXONE HCL 50 MG TABLET PO SCH (08:07)
[2022-11-10] MEDS: MULTIVITAMINS WITH MINERALS, THERAPEUTIC TABLET PO SCH (08:07)
[2022-11-10] MEDS: OMEGA-3/DHA/EPA/FISH OIL 1,000 MG CAPSULE PO SCH (08:08)
[2022-11-10] MEDS: LevETIRAcetam 500 MG TABLET PO SCH ×2 (08:09→16:45)
[2022-11-10] MEDS: FOLIC ACID 1 MG TABLET PO SCH (08:09)
[2022-11-10] MEDS: FLUoxetine HCL 20 MG CAPSULE PO SCH (08:09)
[2022-11-10 08:37] VITALS: BP 112/68; PULSE 67; RESP 18; TEMP 98; O2SAT 95
[2022-11-10] MEDS ORDERED: NALTREXONE HCL 50 MG TABLET PO SCH (09:00)
[2022-11-10] MEDS: HALOPERIDOL 5 MG TABLET PO PRN (16:45)
[2022-11-10] MEDS: LORazepam 2 MG TABLET PO PRN (16:45)
[2022-11-10 20:27] VITALS: BP 116/84; PULSE 78; RESP 18; TEMP 97.8; O2SAT 96
[2022-11-10] MEDS: DIVALPROEX SODIUM 500 MG ER TABLET PO SCH (20:29)
[2022-11-10] MEDS: MELATONIN 5 MG TABLET PO SCH (20:29)
[2022-11-10] MEDS: OLANZapine 10 MG RAPDIS TABLET PO SCH (20:29)
[2022-11-10] MEDS: ZOLPIDEM TARTRATE 10 MG TABLET PO PRN (20:29)
[2022-11-11] MEDS: LevETIRAcetam 500 MG TABLET PO SCH ×2 (08:06→17:07)
[2022-11-11] MEDS: MODAFINIL 100 MG TABLET PO SCH (08:06)
[2022-11-11] MEDS: OMEGA-3/DHA/EPA/FISH OIL 1,000 MG CAPSULE PO SCH (08:06)
[2022-11-11] MEDS: FOLIC ACID 1 MG TABLET PO SCH (08:07)
[2022-11-11] MEDS: MULTIVITAMINS WITH MINERALS, THERAPEUTIC TABLET PO SCH (08:07)
[2022-11-11] MEDS: NALTREXONE HCL 50 MG TABLET PO SCH (08:07)
[2022-11-11] MEDS: FLUoxetine HCL 20 MG CAPSULE PO SCH (08:07)
[2022-11-11] MEDS: THIAMINE 100 MG TABLET PO SCH ×2 (08:07→17:06)
[2022-11-11 08:29] VITALS: BP 104/67; PULSE 61; RESP 17; TEMP 97.8; O2SAT 94
[2022-11-11] MEDS: LORazepam 2 MG TABLET PO PRN ×3 (10:45→21:07)
[2022-11-11] MEDS: HALOPERIDOL 5 MG TABLET PO PRN ×2 (10:45→17:06)
[2022-11-11 20:10] VITALS: BP 122/84; PULSE 79; RESP 20; TEMP 97.6; O2SAT 100
[2022-11-11] MEDS: OLANZapine 10 MG RAPDIS TABLET PO SCH (21:06)
[2022-11-11] MEDS: DIVALPROEX SODIUM 500 MG ER TABLET PO SCH (21:06)
[2022-11-11] MEDS: MELATONIN 5 MG TABLET PO SCH (21:07)
[2022-11-11] MEDS: ZOLPIDEM TARTRATE 10 MG TABLET PO PRN (21:07)
[2022-11-12 08:26] VITALS: BP 113/71; PULSE 65; RESP 18; TEMP 97.6; O2SAT 96
[2022-11-12] MEDS: FLUoxetine HCL 20 MG CAPSULE PO SCH (08:38)
[2022-11-12] MEDS: OMEGA-3/DHA/EPA/FISH OIL 1,000 MG CAPSULE PO SCH (08:38)
[2022-11-12] MEDS: NALTREXONE HCL 50 MG TABLET PO SCH (08:38)
[2022-11-12] MEDS: FOLIC ACID 1 MG TABLET PO SCH (08:38)
[2022-11-12] MEDS: THIAMINE 100 MG TABLET PO SCH ×2 (08:38→16:47)
[2022-11-12] MEDS: LevETIRAcetam 500 MG TABLET PO SCH ×2 (08:39→16:47)
[2022-11-12] MEDS: MULTIVITAMINS WITH MINERALS, THERAPEUTIC TABLET PO SCH (08:39)
[2022-11-12] MEDS: MODAFINIL 100 MG TABLET PO SCH (09:00)
[2022-11-12] MEDS: HALOPERIDOL 5 MG TABLET PO PRN ×2 (11:46→16:47)
[2022-11-12] MEDS: LORazepam 2 MG TABLET PO PRN ×2 (11:47→16:47)
[2022-11-12 20:15] VITALS: BP 112/68; PULSE 68; RESP 18; TEMP 97.6; O2SAT 97
[2022-11-12] MEDS: DIVALPROEX SODIUM 500 MG ER TABLET PO SCH (20:38)
[2022-11-12] MEDS: OLANZapine 10 MG RAPDIS TABLET PO SCH (20:38)
[2022-11-12] MEDS: ZOLPIDEM TARTRATE 10 MG TABLET PO PRN (20:38)
[2022-11-12] MEDS: MELATONIN 5 MG TABLET PO SCH (20:38)
[2022-11-13] MEDS: OMEGA-3/DHA/EPA/FISH OIL 1,000 MG CAPSULE PO SCH (08:07)
[2022-11-13] MEDS: FLUoxetine HCL 20 MG CAPSULE PO SCH (08:07)
[2022-11-13] MEDS: MODAFINIL 100 MG TABLET PO SCH (08:08)
[2022-11-13] MEDS: THIAMINE 100 MG TABLET PO SCH ×2 (08:08→16:02)
[2022-11-13] MEDS: FOLIC ACID 1 MG TABLET PO SCH (08:08)
[2022-11-13] MEDS: MULTIVITAMINS WITH MINERALS, THERAPEUTIC TABLET PO SCH (08:08)
[2022-11-13] MEDS: LevETIRAcetam 500 MG TABLET PO SCH ×2 (08:08→16:02)
[2022-11-13] MEDS: NALTREXONE HCL 50 MG TABLET PO SCH (08:09)
[2022-11-13 08:39] VITALS: BP 119/71; PULSE 70; RESP 18; TEMP 97.5; O2SAT 98
[2022-11-13] MEDS ORDERED: GABAPENTIN 300 MG CAPSULE PO PRN (12:00)
[2022-11-13] MEDS ORDERED: ESZOPICLONE 3 MG TABLET PO PRN (12:00)
[2022-11-13] MEDS: HALOPERIDOL 5 MG TABLET PO PRN (12:18)
[2022-11-13] MEDS: OLANZapine 10 MG RAPDIS TABLET PO SCH (20:29)
[2022-11-13] MEDS: MELATONIN 5 MG TABLET PO SCH (20:29)
[2022-11-13] MEDS: DIVALPROEX SODIUM 500 MG ER TABLET PO SCH (20:29)
[2022-11-13 20:39] VITALS: BP 111/70; PULSE 65; RESP 17; TEMP 97.8; O2SAT 99
[2022-11-14] MEDS: NALTREXONE HCL 50 MG TABLET PO SCH (08:21)
[2022-11-14] MEDS: OMEGA-3/DHA/EPA/FISH OIL 1,000 MG CAPSULE PO SCH (08:21)
[2022-11-14] MEDS: THIAMINE 100 MG TABLET PO SCH ×2 (08:21→17:03)
[2022-11-14] MEDS: FLUoxetine HCL 20 MG CAPSULE PO SCH (08:21)
[2022-11-14] MEDS: FOLIC ACID 1 MG TABLET PO SCH (08:21)
[2022-11-14] MEDS: LevETIRAcetam 500 MG TABLET PO SCH ×2 (08:22→17:03)
[2022-11-14] MEDS: MODAFINIL 100 MG TABLET PO SCH (08:22)
[2022-11-14] MEDS: MULTIVITAMINS WITH MINERALS, THERAPEUTIC TABLET PO SCH (08:22)
[2022-11-14 08:56] VITALS: BP 107/57; PULSE 70; RESP 20; TEMP 97.7; O2SAT 98
[2022-11-14 20:00] VITALS: BP 127/85; PULSE 69; RESP 18; TEMP 97.6; O2SAT 98
[2022-11-14] MEDS: MELATONIN 5 MG TABLET PO SCH (20:08)
[2022-11-14] MEDS: OLANZapine 10 MG RAPDIS TABLET PO SCH (20:08)
[2022-11-14] MEDS: DIVALPROEX SODIUM 500 MG ER TABLET PO SCH (20:08)
[2022-11-15 08:16] VITALS: BP 115/71; PULSE 59; RESP 18; TEMP 97.8; O2SAT 98
[2022-11-15] MEDS: OMEGA-3/DHA/EPA/FISH OIL 1,000 MG CAPSULE PO SCH (09:09)
[2022-11-15] MEDS: NALTREXONE HCL 50 MG TABLET PO SCH (09:11)
[2022-11-15] MEDS: MODAFINIL 100 MG TABLET PO SCH (09:11)
[2022-11-15] MEDS: FLUoxetine HCL 20 MG CAPSULE PO SCH (09:11)
[2022-11-15] MEDS: FOLIC ACID 1 MG TABLET PO SCH (09:11)
[2022-11-15] MEDS: MULTIVITAMINS WITH MINERALS, THERAPEUTIC TABLET PO SCH (09:11)
[2022-11-15] MEDS: THIAMINE 100 MG TABLET PO SCH ×2 (09:12→16:32)
[2022-11-15] MEDS: LevETIRAcetam 500 MG TABLET PO SCH ×2 (09:12→16:33)
[2022-11-15] MEDS: MELATONIN 5 MG TABLET PO SCH (20:56)
[2022-11-15] MEDS: OLANZapine 10 MG RAPDIS TABLET PO SCH (20:56)
[2022-11-15] MEDS: DIVALPROEX SODIUM 500 MG ER TABLET PO SCH (20:56)
[2022-11-16 01:46] VITALS: BP 136/96; PULSE 70; RESP 17; TEMP 97.5; O2SAT 98
[2022-11-16] MEDS: LevETIRAcetam 500 MG TABLET PO SCH ×2 (08:24→16:04)
[2022-11-16] MEDS: MULTIVITAMINS WITH MINERALS, THERAPEUTIC TABLET PO SCH (08:26)
[2022-11-16] MEDS: NALTREXONE HCL 50 MG TABLET PO SCH (08:26)
[2022-11-16] MEDS: OMEGA-3/DHA/EPA/FISH OIL 1,000 MG CAPSULE PO SCH (08:26)
[2022-11-16] MEDS: THIAMINE 100 MG TABLET PO SCH ×2 (08:26→16:04)
[2022-11-16] MEDS: FOLIC ACID 1 MG TABLET PO SCH (08:26)
[2022-11-16] MEDS: FLUoxetine HCL 20 MG CAPSULE PO SCH (08:27)
[2022-11-16] MEDS: MODAFINIL 100 MG TABLET PO SCH (08:27)
[2022-11-16 10:25] VITALS: BP 113/68; PULSE 65; RESP 19; TEMP 98; O2SAT 96
[2022-11-16 20:19] VITALS: BP 123/80; PULSE 79; RESP 18; TEMP 98; O2SAT 97
[2022-11-16] MEDS: DIVALPROEX SODIUM 500 MG ER TABLET PO SCH (20:27)
[2022-11-16] MEDS: MELATONIN 5 MG TABLET PO SCH (20:27)
[2022-11-16] MEDS: OLANZapine 10 MG RAPDIS TABLET PO SCH (20:27)
[2022-11-17 08:23] VITALS: BP 117/62; PULSE 65; RESP 18; TEMP 98; O2SAT 97
[2022-11-17] MEDS: MODAFINIL 100 MG TABLET PO SCH ×3 (08:54→09:05)
[2022-11-17] MEDS: OMEGA-3/DHA/EPA/FISH OIL 1,000 MG CAPSULE PO SCH (08:54)
[2022-11-17] MEDS: FLUoxetine HCL 20 MG CAPSULE PO SCH (08:55)
[2022-11-17] MEDS: LevETIRAcetam 500 MG TABLET PO SCH ×2 (08:55→16:05)
[2022-11-17] MEDS: MULTIVITAMINS WITH MINERALS, THERAPEUTIC TABLET PO SCH (08:56)
[2022-11-17] MEDS: THIAMINE 100 MG TABLET PO SCH ×2 (08:56→16:05)
[2022-11-17] MEDS: NALTREXONE HCL 50 MG TABLET PO SCH (08:56)
[2022-11-17] MEDS: FOLIC ACID 1 MG TABLET PO SCH (08:56)
[2022-11-17 20:15] VITALS: BP 121/78; PULSE 77; RESP 18; TEMP 98
[2022-11-17] MEDS: MELATONIN 5 MG TABLET PO SCH (20:16)
[2022-11-17] MEDS: OLANZapine 10 MG RAPDIS TABLET PO SCH (20:16)
[2022-11-17] MEDS: DIVALPROEX SODIUM 500 MG ER TABLET PO SCH (20:16)
[2022-11-18 08:17] VITALS: BP 108/66; PULSE 60; RESP 16; TEMP 98.4; O2SAT 96
[2022-11-18] MEDS: THIAMINE 100 MG TABLET PO SCH ×2 (08:45→16:57)
[2022-11-18] MEDS: LevETIRAcetam 500 MG TABLET PO SCH ×2 (08:45→16:57)
[2022-11-18] MEDS: MODAFINIL 100 MG TABLET PO SCH (08:45)
[2022-11-18] MEDS: FOLIC ACID 1 MG TABLET PO SCH (08:45)
[2022-11-18] MEDS: OMEGA-3/DHA/EPA/FISH OIL 1,000 MG CAPSULE PO SCH (08:45)
[2022-11-18] MEDS: MULTIVITAMINS WITH MINERALS, THERAPEUTIC TABLET PO SCH (08:45)
[2022-11-18] MEDS: NALTREXONE HCL 50 MG TABLET PO SCH (08:55)
[2022-11-18] MEDS: FLUoxetine HCL 20 MG CAPSULE PO SCH (09:04)
[2022-11-18] MEDS: MELATONIN 5 MG TABLET PO SCH (20:13)
[2022-11-18] MEDS: DIVALPROEX SODIUM 500 MG ER TABLET PO SCH (20:14)
[2022-11-18] MEDS: OLANZapine 10 MG RAPDIS TABLET PO SCH (20:14)
[2022-11-18 20:16] VITALS: BP 122/71; PULSE 66; RESP 18; TEMP 98.6; O2SAT 97
[2022-11-19 08:21] VITALS: BP 102/56; PULSE 66; RESP 19; TEMP 98; O2SAT 97
[2022-11-19] MEDS: OMEGA-3/DHA/EPA/FISH OIL 1,000 MG CAPSULE PO SCH (08:24)
[2022-11-19] MEDS: MULTIVITAMINS WITH MINERALS, THERAPEUTIC TABLET PO SCH (08:25)
[2022-11-19] MEDS: LevETIRAcetam 500 MG TABLET PO SCH ×2 (08:25→16:16)
[2022-11-19] MEDS: NALTREXONE HCL 50 MG TABLET PO SCH (08:25)
[2022-11-19] MEDS: FOLIC ACID 1 MG TABLET PO SCH (08:25)
[2022-11-19] MEDS: THIAMINE 100 MG TABLET PO SCH (08:26)
[2022-11-19] MEDS: MODAFINIL 100 MG TABLET PO SCH (08:50)
[2022-11-19] MEDS: FLUoxetine HCL 20 MG CAPSULE PO SCH (08:50)
[2022-11-19 20:12] VITALS: BP 126/83; PULSE 71; RESP 18; TEMP 97.9; O2SAT 98
[2022-11-19] MEDS: MELATONIN 5 MG TABLET PO SCH (21:19)
[2022-11-19] MEDS: OLANZapine 10 MG RAPDIS TABLET PO SCH (21:19)
[2022-11-19] MEDS: DIVALPROEX SODIUM 500 MG ER TABLET PO SCH (21:20)
[2022-11-20 08:21] VITALS: BP 109/59; PULSE 63; RESP 19; TEMP 97.9; O2SAT 94
[2022-11-20] MEDS: LevETIRAcetam 500 MG TABLET PO SCH (09:06)
[2022-11-20] MEDS: OMEGA-3/DHA/EPA/FISH OIL 1,000 MG CAPSULE PO SCH (09:06)
[2022-11-20] MEDS: FLUoxetine HCL 20 MG CAPSULE PO SCH (09:07)
[2022-11-20] MEDS: NALTREXONE HCL 50 MG TABLET PO SCH (09:07)
[2022-11-20] MEDS: MULTIVITAMINS WITH MINERALS, THERAPEUTIC TABLET PO SCH (09:07)
[2022-11-20] MEDS: MODAFINIL 100 MG TABLET PO SCH (09:07)
[2022-11-20] MEDS ORDERED: OLAN10TA26 PO (14:52)
[2022-11-20] MEDS ORDERED: MODA100T65 PO (14:52)
[2022-11-20] MEDS ORDERED: LEVE500T8 PO (14:52)
[2022-11-20] MEDS ORDERED: DIVA500T69 PO (14:52)
[2022-11-20] MEDS ORDERED: OMEG-135 PO (14:52)
[2022-11-20] MEDS ORDERED: MELA5TAB40 PO (14:52)
[2022-11-20] MEDS ORDERED: FLUO20CA36 PO (14:52)
== END 2022-11-20 15:10 | disposition home or self-care (01) | DRG 750 ==
LOC: EMS 15:04 → B3A 11-07 01:13 → B2S 11-13 09:30
PROVIDERS: ADMIT Psychiatry & Neurology Psychiatry; ATTEND Psychiatry & Neurology Psychiatry
DX: F25.0 Schizoaffective disorder, bipolar type (principal); R45.851 Suicidal ideations; F41.9 Anxiety disorder, unspecified; F17.210 Nicotine dependence, cigarettes, uncomplicated; K21.9 Gastro-esophageal reflux disease without esophagitis; Z20.822 Contact with and (suspected) exposure to COVID-19; D72.829 Elevated white blood cell count, unspecified; F10.229 Alcohol dependence with intoxication, unspecified; F15.20 Other stimulant dependence, uncomplicated; F12.20 Cannabis dependence, uncomplicated; E78.1 Pure hyperglyceridemia; Z55.9 Problems related to education and literacy, unspecified; Z59.9 Problem related to housing and economic circumstances, unspecified; Z63.9 Problem related to primary support group, unspecified; Z65.3 Problems related to other legal circumstances; Z79.899 Other long term (current) drug therapy
CPT/HCPCS: 80053; 80164; 80307; 85025; 87081; 99285; G0480; Q9967

== ENCOUNTER 2022-12-19 22:54 | Emergency (ER) | payer MEDICAID, OTHER ==
[~2022-12-19] VITALS: Ht 188 cm; Wt 90.9 kg
[~2022-12-19 22:54] MED LIST changes: +LEVE500T8 PO; -NALT50TA PO; +OMEG-135 PO
[2022-12-19 23:31] VITALS: BP 135/99; PULSE 113; RESP 16; TEMP 98.8
[2022-12-20] MEDS ORDERED: OLANZapine 5 MG TABLET PO ONE (00:30)
[2022-12-20] MEDS ORDERED: LORazepam 1 MG TABLET PO ONE (00:30)
[2022-12-20] MEDS ORDERED: LITHIUM CARBONATE 300 MG ER TABLET PO ONE (00:30)
[2022-12-20] MEDS ORDERED: DIVALPROEX SODIUM 500 MG DR TABLET PO ONE (00:30)
[2022-12-20] MEDS ORDERED: DiphenhydrAMINE HCL 25 MG CAPSULE PO ONE (00:30)
[2022-12-20 01:03] LABS: BASOPHILS % (AUTO) 0.9 % (0.0-2.0); EOSINOPHILS % (AUTO) 0.3 % (1.0-6.0); HEMATOCRIT 46.5 % (41-53); LYMPHOCYTES # (AUTO) 2.9 K/uL (1.0-4.8); LYMPHOCYTES % (AUTO) 16.8 % (22.0-44.0); MEAN CORPUSCULAR HEMOGLOBIN 31.3 pg (26.0-34.0); MEAN CORPUSCULAR HGB CONC 34.5 G/dL (31.0-37.0); MEAN CORPUSCULAR VOLUME 91 fL (80-100); MONOCYTES # (AUTO) 2.1 K/uL (0.1-1.0); MONOCYTES % (AUTO) 11.8 % (2.0-9.0); NEUTROPHILS # (AUTO) 12.3 K/uL (1.8-7.7); NEUTROPHILS % (AUTO) 70.2 % (40.0-70.0); PLATELET COUNT (AUTO) 278 K/uL (150-450); RED BLOOD CELL COUNT(AUTO) 5.12 MIL/uL (4.50-5.90); RED CELL DISTRIBUTION WIDTH 13.9 % (11.5-14.5); WHITE BLOOD COUNT (AUTO) 17.5 K/uL (4.5-11.0)
[2022-12-20 01:11] LABS: ANION GAP 9 mmol/L (8-16); CALCIUM, TOTAL 9.1 mg/dL (8.8-10.5); CARBON DIOXIDE 26 mmol/L (22-29); CHLORIDE 100 mmol/L (98-107); CREATININE 1.67 mg/dL (0.60-1.30); GLOMERULAR FILTR. RATE CALC 44 mL/min (>60); GLUCOSE,RANDOM 108 mg/dL (70-110); POTASSIUM 3.4 mmol/L (3.5-5.1); SODIUM SERUM 135 mmol/L (136-145); UREA NITROGEN, BLOOD 23 mg/dL (7-18)
[2022-12-20 01:16] LABS: ALANINE AMINOTRANSFERASE 30 U/L (12-78); ALBUMIN 4.2 g/dL (3.4-5.0); ALKALINE PHOSPHATASE 77 U/L (46-116); ASPARTATE AMINOTRANSFERASE 39 U/L (15-37); BILIRUBIN,TOTAL 1.6 mg/dL (0.1-1.0); TOTAL PROTEIN, SERUM 8.4 g/dL (6.4-8.2)
[2022-12-20 01:23] LABS: ALCOHOL, BLOOD (SERUM) < 3 mg/dL (0-10)
[2022-12-20] MEDS ORDERED: OLAN10TA26 PO (03:15)
[2022-12-20] MEDS ORDERED: DIVA500T69 PO (03:15)
[2022-12-21] MEDS ORDERED: OLAN5TAB52 PO (17:52)
== END 2022-12-20 03:15 | disposition home or self-care (01) ==
LOC: EMS 22:55
DX: F25.1 Schizoaffective disorder, depressive type (principal); N18.9 Chronic kidney disease, unspecified; F15.10 Other stimulant abuse, uncomplicated; F41.9 Anxiety disorder, unspecified; F17.210 Nicotine dependence, cigarettes, uncomplicated; F14.90 Cocaine use, unspecified, uncomplicated; F12.90 Cannabis use, unspecified, uncomplicated
CPT/HCPCS: 99284; 80053; 85025; G0480

== ENCOUNTER 2022-12-21 17:18 | Inpatient (IN) | payer MEDICAID, OTHER ==
[~2022-12-21] VITALS: Ht 190.5 cm; Wt 106.1 kg
[2022-12-21] MEDS ORDERED: OLAN5TAB52 PO (17:52)
[2022-12-21] MEDS ORDERED: HALOPERIDOL LACTATE 5 MG/ML VIAL IM ONE ×2 (18:00→18:45)
[2022-12-21] MEDS ORDERED: LORazepam 2 MG/ML VIAL IM ONE (18:00)
[2022-12-21] MEDS ORDERED: DiphenhydrAMINE HCL 50 MG/ML VIAL IM ONE (18:00)
[2022-12-21 18:22] LABS: BASOPHILS % (AUTO) 0.5 % (0.0-2.0); EOSINOPHILS % (AUTO) 0.7 % (1.0-6.0); HEMOGLOBIN 14.7 g/dL (13.5-17.5); LYMPHOCYTES # (AUTO) 1.1 K/uL (1.0-4.8); LYMPHOCYTES % (AUTO) 8.8 % (22.0-44.0); MEAN CORPUSCULAR HEMOGLOBIN 31.1 pg (26.0-34.0); MEAN CORPUSCULAR HGB CONC 34.3 G/dL (31.0-37.0); MEAN CORPUSCULAR VOLUME 91 fL (80-100); MONOCYTES # (AUTO) 1.9 K/uL (0.1-1.0); MONOCYTES % (AUTO) 14.9 % (2.0-9.0); NEUTROPHILS # (AUTO) 9.7 K/uL (1.8-7.7); NEUTROPHILS % (AUTO) 75.1 % (40.0-70.0); PLATELET COUNT (AUTO) 261 K/uL (150-450); RED BLOOD CELL COUNT(AUTO) 4.73 MIL/uL (4.50-5.90); RED CELL DISTRIBUTION WIDTH 13.8 % (11.5-14.5); WHITE BLOOD COUNT (AUTO) 12.9 K/uL (4.5-11.0)
[2022-12-21 18:28] LABS: COVID AG,FIA SOURCE NASAL SWAB
[2022-12-21 18:36] LABS: SARS-COV2 (COVID) ANTIGEN,FIA Negative (Negative)
[2022-12-21 18:37] LABS: ANION GAP 14 mmol/L (8-16); CALCIUM, TOTAL 8.9 mg/dL (8.8-10.5); CARBON DIOXIDE 21 mmol/L (22-29); CHLORIDE 97 mmol/L (98-107); GLOMERULAR FILTR. RATE CALC 47 mL/min (>60); GLUCOSE,RANDOM 104 mg/dL (70-110); POTASSIUM 3.6 mmol/L (3.5-5.1); SODIUM SERUM 132 mmol/L (136-145); UREA NITROGEN, BLOOD 28 mg/dL (7-18)
[2022-12-21 18:43] LABS: ALANINE AMINOTRANSFERASE 51 U/L (12-78); ALBUMIN 3.7 g/dL (3.4-5.0); ALKALINE PHOSPHATASE 75 U/L (46-116); ASPARTATE AMINOTRANSFERASE 112 U/L (15-37); BILIRUBIN,TOTAL 1.7 mg/dL (0.1-1.0); TOTAL PROTEIN, SERUM 7.9 g/dL (6.4-8.2)
[2022-12-21 18:51] LABS: ALCOHOL, BLOOD (SERUM) < 3 mg/dL (0-10)
[2022-12-21] MEDS ORDERED: ChlorproMAZINE HCL 50 MG/2 ML AMP IM ONE (19:15)
[2022-12-21] MEDS ORDERED: LORazepam 2 MG TABLET PO PRN (23:15)
[2022-12-22 14:33] VITALS: BP 123/87; PULSE 112; RESP 20; TEMP 98.2; O2SAT 97
[2022-12-22] MEDS ORDERED: PNEUMOCOCCAL VACCINE POLYVALENT 0.5 ML SYRINGE [PPSV23] IM. ONE (15:00)
[2022-12-22] MEDS ORDERED: MAGNESIUM HYDROXIDE SUSPENSION 30 ML UDCUP PO PRN (15:15)
[2022-12-22] MEDS ORDERED: PROMETHAZINE HCL 25 MG TABLET PO PRN (15:15)
[2022-12-22] MEDS ORDERED: OLANZapine 5 MG RAPDIS TABLET PO PRN (15:15)
[2022-12-22] MEDS ORDERED: LORazepam 2 MG TABLET PO PRN (15:15)
[2022-12-22] MEDS ORDERED: MAG HYDROX/ALUMINUM HYD/SIMETH ES 30 ML SUSPENSION UDCUP PO PRN (15:15)
[2022-12-22] MEDS ORDERED: ACETAMINOPHEN 325 MG TABLET PO PRN (15:15)
[2022-12-22] MEDS ORDERED: GuaiFENesin/D-METHORPHAN [SUGAR-FREE] 200-20MG/10 ML SYRUP UDCUP PO PRN (15:15)
[2022-12-22] MEDS ORDERED: LOPERAMIDE HCL 2 MG CAPSULE PO PRN ×2 (15:15)
[2022-12-22] MEDS ORDERED: CYANOCOBALAMIN 1,000 MCG/ML VIAL IM ONE (15:15)
[2022-12-22 15:33] VITALS: BP 125/86; PULSE 95; RESP 18; TEMP 97.9; O2SAT 98
[2022-12-22] MEDS: THIAMINE 100 MG TABLET PO SCH (17:30)
[2022-12-22] MEDS: LevETIRAcetam 500 MG TABLET PO SCH (17:30)
[2022-12-22] MEDS: ZOLPIDEM TARTRATE 10 MG TABLET PO PRN (20:08)
[2022-12-22 20:17] VITALS: BP 128/80; PULSE 106; RESP 18; TEMP 97.6; O2SAT 98
[2022-12-22] MEDS ORDERED: OLANZapine 5 MG RAPDIS TABLET PO SCH (21:00)
[2022-12-22] MEDS: DIVALPROEX SODIUM 500 MG ER TABLET PO SCH (21:38)
[2022-12-22] MEDS: MELATONIN 5 MG TABLET PO SCH (21:39)
[2022-12-23] MEDS ORDERED: LORazepam 2 MG TABLET PO PRN (07:00)
[2022-12-23] MEDS: MULTIVITAMINS WITH MINERALS, THERAPEUTIC TABLET PO SCH (08:05)
[2022-12-23] MEDS: OMEGA-3/DHA/EPA/FISH OIL 1,000 MG CAPSULE PO SCH (08:05)
[2022-12-23] MEDS: LORazepam 2 MG TABLET PO SCH ×4 (08:05→20:56)
[2022-12-23] MEDS: NALTREXONE HCL 50 MG TABLET PO SCH (08:05)
[2022-12-23] MEDS: LevETIRAcetam 500 MG TABLET PO SCH ×2 (08:06→17:07)
[2022-12-23] MEDS: FOLIC ACID 1 MG TABLET PO SCH (08:06)
[2022-12-23] MEDS: THIAMINE 100 MG TABLET PO SCH ×2 (08:06→17:07)
[2022-12-23] MEDS: FLUoxetine HCL 20 MG CAPSULE PO SCH (08:06)
[2022-12-23 08:18] VITALS: BP 115/74; PULSE 92; RESP 18; TEMP 97.7; O2SAT 98
[2022-12-23 20:22] VITALS: BP 122/68; PULSE 90; RESP 20; TEMP 98; O2SAT 98
[2022-12-23] MEDS: OLANZapine 10 MG RAPDIS TABLET PO SCH (20:55)
[2022-12-23] MEDS: MELATONIN 5 MG TABLET PO SCH (20:56)
[2022-12-23] MEDS: DIVALPROEX SODIUM 500 MG ER TABLET PO SCH (21:02)
[2022-12-24] MEDS: NALTREXONE HCL 50 MG TABLET PO SCH (08:43)
[2022-12-24] MEDS: OMEGA-3/DHA/EPA/FISH OIL 1,000 MG CAPSULE PO SCH (08:43)
[2022-12-24] MEDS: THIAMINE 100 MG TABLET PO SCH ×2 (08:44→17:00)
[2022-12-24] MEDS: MULTIVITAMINS WITH MINERALS, THERAPEUTIC TABLET PO SCH (08:44)
[2022-12-24] MEDS: LevETIRAcetam 500 MG TABLET PO SCH ×2 (08:44→16:59)
[2022-12-24] MEDS: FOLIC ACID 1 MG TABLET PO SCH (08:44)
[2022-12-24] MEDS: FLUoxetine HCL 20 MG CAPSULE PO SCH (08:44)
[2022-12-24] MEDS: LORazepam 2 MG TABLET PO SCH ×4 (08:44→20:26)
[2022-12-24 08:52] VITALS: BP 108/60; PULSE 82; RESP 18; TEMP 98; O2SAT 97
[2022-12-24 20:11] VITALS: BP 118/64; PULSE 89; RESP 20; TEMP 98.2; O2SAT 97
[2022-12-24] MEDS: MELATONIN 5 MG TABLET PO SCH (20:26)
[2022-12-24] MEDS: DIVALPROEX SODIUM 500 MG ER TABLET PO SCH (20:26)
[2022-12-24] MEDS: OLANZapine 10 MG RAPDIS TABLET PO SCH (20:27)
[2022-12-25] MEDS ORDERED: LORazepam 1 MG TABLET PO PRN (07:00)
[2022-12-25 08:21] VITALS: BP 100/60; PULSE 78; RESP 18; TEMP 98; O2SAT 99
[2022-12-25] MEDS: LORazepam 1 MG TABLET PO SCH ×4 (08:34→20:02)
[2022-12-25] MEDS: FLUoxetine HCL 20 MG CAPSULE PO SCH (08:34)
[2022-12-25] MEDS: FOLIC ACID 1 MG TABLET PO SCH (08:34)
[2022-12-25] MEDS: MULTIVITAMINS WITH MINERALS, THERAPEUTIC TABLET PO SCH (08:34)
[2022-12-25] MEDS: LevETIRAcetam 500 MG TABLET PO SCH ×2 (08:35→16:01)
[2022-12-25] MEDS: NALTREXONE HCL 50 MG TABLET PO SCH (08:35)
[2022-12-25] MEDS: OMEGA-3/DHA/EPA/FISH OIL 1,000 MG CAPSULE PO SCH (08:35)
[2022-12-25] MEDS: THIAMINE 100 MG TABLET PO SCH ×2 (08:35→16:01)
[2022-12-25] MEDS: OLANZapine 10 MG RAPDIS TABLET PO SCH (20:02)
[2022-12-25] MEDS: MELATONIN 5 MG TABLET PO SCH (20:03)
[2022-12-25] MEDS: DIVALPROEX SODIUM 500 MG ER TABLET PO SCH (20:03)
[2022-12-26 04:52] VITALS: RESP 18; TEMP 97.8
[2022-12-26] MEDS ORDERED: LORazepam 1 MG TABLET PO PRN (07:00)
[2022-12-26 08:23] VITALS: RESP 18
[2022-12-26] MEDS: FOLIC ACID 1 MG TABLET PO SCH (08:24)
[2022-12-26] MEDS: LevETIRAcetam 500 MG TABLET PO SCH ×2 (08:24→17:13)
[2022-12-26] MEDS: NALTREXONE HCL 50 MG TABLET PO SCH (08:24)
[2022-12-26] MEDS: FLUoxetine HCL 20 MG CAPSULE PO SCH (08:24)
[2022-12-26] MEDS: THIAMINE 100 MG TABLET PO SCH ×2 (08:24→17:13)
[2022-12-26] MEDS: MULTIVITAMINS WITH MINERALS, THERAPEUTIC TABLET PO SCH (08:24)
[2022-12-26] MEDS: OMEGA-3/DHA/EPA/FISH OIL 1,000 MG CAPSULE PO SCH (08:25)
[2022-12-26] MEDS: HydrOXYzine PAMOATE 50 MG CAPSULE PO PRN (17:13)
[2022-12-26 20:16] VITALS: BP 111/63; PULSE 72; RESP 18; TEMP 97.6; O2SAT 97
[2022-12-26] MEDS: MELATONIN 5 MG TABLET PO SCH (20:29)
[2022-12-26] MEDS: OLANZapine 10 MG RAPDIS TABLET PO SCH (20:29)
[2022-12-26] MEDS: ZOLPIDEM TARTRATE 10 MG TABLET PO PRN (20:29)
[2022-12-26] MEDS: DIVALPROEX SODIUM 500 MG ER TABLET PO SCH (20:29)
[2022-12-27 08:19] VITALS: RESP 18
[2022-12-27] MEDS: FLUoxetine HCL 20 MG CAPSULE PO SCH (08:49)
[2022-12-27] MEDS: OMEGA-3/DHA/EPA/FISH OIL 1,000 MG CAPSULE PO SCH (08:49)
[2022-12-27] MEDS: MULTIVITAMINS WITH MINERALS, THERAPEUTIC TABLET PO SCH (08:49)
[2022-12-27] MEDS: HydrOXYzine PAMOATE 50 MG CAPSULE PO PRN (08:49)
[2022-12-27] MEDS: LevETIRAcetam 500 MG TABLET PO SCH ×2 (08:49→16:29)
[2022-12-27] MEDS: NALTREXONE HCL 50 MG TABLET PO SCH (08:49)
[2022-12-27] MEDS: THIAMINE 100 MG TABLET PO SCH ×2 (08:49→16:29)
[2022-12-27] MEDS: FOLIC ACID 1 MG TABLET PO SCH (08:49)
[2022-12-27 20:46] VITALS: BP 105/63; PULSE 68; RESP 18; TEMP 97.7
[2022-12-27] MEDS: OLANZapine 10 MG RAPDIS TABLET PO SCH (20:56)
[2022-12-27] MEDS: DIVALPROEX SODIUM 500 MG ER TABLET PO SCH (20:56)
[2022-12-27] MEDS: ZOLPIDEM TARTRATE 10 MG TABLET PO PRN (20:56)
[2022-12-27] MEDS: MELATONIN 5 MG TABLET PO SCH (20:56)
[2022-12-28 08:32] LABS: HEMOGLOBIN A1C 5.3 % (3.8-5.6)
[2022-12-28] MEDS: NALTREXONE HCL 50 MG TABLET PO SCH (08:38)
[2022-12-28] MEDS: FLUoxetine HCL 20 MG CAPSULE PO SCH (08:38)
[2022-12-28] MEDS: MULTIVITAMINS WITH MINERALS, THERAPEUTIC TABLET PO SCH (08:38)
[2022-12-28] MEDS: THIAMINE 100 MG TABLET PO SCH ×2 (08:38→16:56)
[2022-12-28] MEDS: FOLIC ACID 1 MG TABLET PO SCH (08:38)
[2022-12-28] MEDS: OMEGA-3/DHA/EPA/FISH OIL 1,000 MG CAPSULE PO SCH (08:38)
[2022-12-28 08:40] VITALS: RESP 18
[2022-12-28] MEDS: LevETIRAcetam 500 MG TABLET PO SCH ×2 (08:43→16:56)
[2022-12-28 08:58] LABS: CHOL/HDL RATIO 5.8 (4.2-7.3)
[2022-12-28 20:26] VITALS: BP 116/64; PULSE 80; RESP 18; TEMP 97.8; O2SAT 97
[2022-12-28] MEDS: OLANZapine 10 MG RAPDIS TABLET PO SCH (20:36)
[2022-12-28] MEDS: ESZOPICLONE 3 MG TABLET PO PRN (20:36)
[2022-12-28] MEDS: DIVALPROEX SODIUM 500 MG ER TABLET PO SCH (20:36)
[2022-12-28] MEDS: MELATONIN 5 MG TABLET PO SCH (20:39)
[2022-12-29] MEDS: FLUoxetine HCL 20 MG CAPSULE PO SCH (08:35)
[2022-12-29] MEDS: FOLIC ACID 1 MG TABLET PO SCH (08:35)
[2022-12-29] MEDS: MULTIVITAMINS WITH MINERALS, THERAPEUTIC TABLET PO SCH (08:35)
[2022-12-29] MEDS: LevETIRAcetam 500 MG TABLET PO SCH ×2 (08:35→16:17)
[2022-12-29] MEDS: THIAMINE 100 MG TABLET PO SCH ×2 (08:44→16:17)
[2022-12-29] MEDS: NALTREXONE HCL 50 MG TABLET PO SCH (08:44)
[2022-12-29] MEDS: OMEGA-3/DHA/EPA/FISH OIL 1,000 MG CAPSULE PO SCH (08:44)
[2022-12-29 12:42] VITALS: BP 122/71; PULSE 79; RESP 16; TEMP 97.6; O2SAT 98
[2022-12-29 20:19] VITALS: BP 125/70; PULSE 70; RESP 20; TEMP 97.6; O2SAT 97
[2022-12-29] MEDS: MELATONIN 5 MG TABLET PO SCH (21:15)
[2022-12-29] MEDS: OLANZapine 10 MG RAPDIS TABLET PO SCH (21:15)
[2022-12-29] MEDS: DIVALPROEX SODIUM 500 MG ER TABLET PO SCH (21:15)
[2022-12-30] MEDS: FLUoxetine HCL 20 MG CAPSULE PO SCH (08:02)
[2022-12-30] MEDS: OMEGA-3/DHA/EPA/FISH OIL 1,000 MG CAPSULE PO SCH (08:03)
[2022-12-30] MEDS: NALTREXONE HCL 50 MG TABLET PO SCH (08:03)
[2022-12-30] MEDS: LevETIRAcetam 500 MG TABLET PO SCH ×2 (08:03→16:50)
[2022-12-30] MEDS: MULTIVITAMINS WITH MINERALS, THERAPEUTIC TABLET PO SCH (08:03)
[2022-12-30] MEDS: THIAMINE 100 MG TABLET PO SCH ×2 (08:03→16:50)
[2022-12-30] MEDS: FOLIC ACID 1 MG TABLET PO SCH (08:03)
[2022-12-30 08:42] VITALS: RESP 18
[2022-12-30] MEDS: GABAPENTIN 300 MG CAPSULE PO PRN (16:50)
[2022-12-30] MEDS: OLANZapine 10 MG RAPDIS TABLET PO SCH (20:44)
[2022-12-30] MEDS: ESZOPICLONE 3 MG TABLET PO PRN (20:44)
[2022-12-30] MEDS: DIVALPROEX SODIUM 500 MG ER TABLET PO SCH (20:44)
[2022-12-30] MEDS: MELATONIN 5 MG TABLET PO SCH (20:44)
[2022-12-31 00:52] VITALS: BP 132/77; PULSE 79; RESP 18; TEMP 97.9
[2022-12-31 08:10] VITALS: RESP 17
[2022-12-31] MEDS: OMEGA-3/DHA/EPA/FISH OIL 1,000 MG CAPSULE PO SCH (08:29)
[2022-12-31] MEDS: LevETIRAcetam 500 MG TABLET PO SCH ×2 (08:30→17:27)
[2022-12-31] MEDS: NALTREXONE HCL 50 MG TABLET PO SCH (08:30)
[2022-12-31] MEDS: THIAMINE 100 MG TABLET PO SCH ×2 (08:30→17:37)
[2022-12-31] MEDS: FOLIC ACID 1 MG TABLET PO SCH (08:30)
[2022-12-31] MEDS: MULTIVITAMINS WITH MINERALS, THERAPEUTIC TABLET PO SCH (08:30)
[2022-12-31] MEDS: FLUoxetine HCL 20 MG CAPSULE PO SCH (08:30)
[2022-12-31] MEDS: GABAPENTIN 300 MG CAPSULE PO PRN (17:31)
[2022-12-31] MEDS: OLANZapine 10 MG RAPDIS TABLET PO SCH (20:43)
[2022-12-31] MEDS: MELATONIN 5 MG TABLET PO SCH (20:43)
[2022-12-31] MEDS: DIVALPROEX SODIUM 500 MG ER TABLET PO SCH (20:43)
[2022-12-31 21:11] VITALS: BP 104/60; PULSE 65; RESP 18; TEMP 97.9; O2SAT 98
[2023-01-01] MEDS: FLUoxetine HCL 20 MG CAPSULE PO SCH (08:45)
[2023-01-01] MEDS: MULTIVITAMINS WITH MINERALS, THERAPEUTIC TABLET PO SCH (08:45)
[2023-01-01] MEDS: NALTREXONE HCL 50 MG TABLET PO SCH (08:45)
[2023-01-01] MEDS: THIAMINE 100 MG TABLET PO SCH (08:45)
[2023-01-01] MEDS: LevETIRAcetam 500 MG TABLET PO SCH ×2 (08:45→16:40)
[2023-01-01] MEDS: OMEGA-3/DHA/EPA/FISH OIL 1,000 MG CAPSULE PO SCH (08:45)
[2023-01-01] MEDS: FOLIC ACID 1 MG TABLET PO SCH (08:45)
[2023-01-01 09:39] VITALS: BP 116/68; PULSE 63; RESP 18; TEMP 97.9; O2SAT 96
[2023-01-01] MEDS: DIVALPROEX SODIUM 500 MG ER TABLET PO SCH (20:38)
[2023-01-01] MEDS: OLANZapine 10 MG RAPDIS TABLET PO SCH (20:39)
[2023-01-01] MEDS: MELATONIN 5 MG TABLET PO SCH (20:39)
[2023-01-01 21:44] VITALS: BP 116/74; PULSE 72; RESP 18; TEMP 97.9; O2SAT 97
[2023-01-02] MEDS: OMEGA-3/DHA/EPA/FISH OIL 1,000 MG CAPSULE PO SCH (08:55)
[2023-01-02] MEDS: MULTIVITAMINS WITH MINERALS, THERAPEUTIC TABLET PO SCH (08:55)
[2023-01-02] MEDS: LevETIRAcetam 500 MG TABLET PO SCH ×2 (08:56→16:05)
[2023-01-02] MEDS: NALTREXONE HCL 50 MG TABLET PO SCH (08:56)
[2023-01-02] MEDS: FLUoxetine HCL 20 MG CAPSULE PO SCH ×2 (08:56→09:00)
[2023-01-02 09:11] VITALS: BP 113/63; PULSE 63; RESP 18; TEMP 97.9; O2SAT 98
[2023-01-02] MEDS: OLANZapine 10 MG RAPDIS TABLET PO SCH (20:19)
[2023-01-02] MEDS: DIVALPROEX SODIUM 500 MG ER TABLET PO SCH (20:19)
[2023-01-02] MEDS: MELATONIN 5 MG TABLET PO SCH (20:19)
[2023-01-02 22:24] VITALS: BP 114/77; PULSE 75; RESP 18; TEMP 97.5; O2SAT 97
[2023-01-03] MEDS: MULTIVITAMINS WITH MINERALS, THERAPEUTIC TABLET PO SCH (09:07)
[2023-01-03] MEDS: OMEGA-3/DHA/EPA/FISH OIL 1,000 MG CAPSULE PO SCH (09:07)
[2023-01-03] MEDS: LevETIRAcetam 500 MG TABLET PO SCH ×2 (09:08→16:36)
[2023-01-03] MEDS: NALTREXONE HCL 50 MG TABLET PO SCH (09:08)
[2023-01-03] MEDS: FLUoxetine HCL 20 MG CAPSULE PO SCH (09:08)
[2023-01-03 13:15] VITALS: BP 111/66; PULSE 69; RESP 17; TEMP 97; O2SAT 96
[2023-01-03 20:32] VITALS: BP 123/73; PULSE 65; RESP 18; TEMP 98.1; O2SAT 100
[2023-01-03] MEDS: MELATONIN 5 MG TABLET PO SCH (20:41)
[2023-01-03] MEDS: DIVALPROEX SODIUM 500 MG ER TABLET PO SCH (20:41)
[2023-01-03] MEDS: OLANZapine 10 MG RAPDIS TABLET PO SCH (20:42)
[2023-01-04] MEDS: OMEGA-3/DHA/EPA/FISH OIL 1,000 MG CAPSULE PO SCH (09:00)
[2023-01-04] MEDS: MULTIVITAMINS WITH MINERALS, THERAPEUTIC TABLET PO SCH (09:00)
[2023-01-04] MEDS: FLUoxetine HCL 20 MG CAPSULE PO SCH (09:00)
[2023-01-04] MEDS: NALTREXONE HCL 50 MG TABLET PO SCH (09:00)
[2023-01-04] MEDS: LevETIRAcetam 500 MG TABLET PO SCH ×2 (09:00→17:24)
[2023-01-04 09:17] VITALS: BP 93/55; PULSE 65; RESP 18; TEMP 97.8
[2023-01-04 20:35] VITALS: BP 117/72; PULSE 68; RESP 18; TEMP 97.6; O2SAT 97
[2023-01-04] MEDS: DIVALPROEX SODIUM 500 MG ER TABLET PO SCH (22:04)
[2023-01-04] MEDS: OLANZapine 10 MG RAPDIS TABLET PO SCH (22:05)
[2023-01-04] MEDS: MELATONIN 5 MG TABLET PO SCH (22:05)
[2023-01-05] MEDS: LITHIUM CARBONATE 600 MG CAPSULE PO SCH ×2 (06:36→17:11)
[2023-01-05 08:58] VITALS: BP 113/69; PULSE 78; RESP 19; TEMP 97.7; O2SAT 98
[2023-01-05] MEDS: MULTIVITAMINS WITH MINERALS, THERAPEUTIC TABLET PO SCH (09:00)
[2023-01-05] MEDS: OMEGA-3/DHA/EPA/FISH OIL 1,000 MG CAPSULE PO SCH (09:00)
[2023-01-05] MEDS: NALTREXONE HCL 50 MG TABLET PO SCH (09:00)
[2023-01-05] MEDS: LevETIRAcetam 500 MG TABLET PO SCH ×2 (10:11→17:11)
[2023-01-05] MEDS: QUEtiapine FUMARATE 100 MG TABLET PO PRN (17:14)
[2023-01-05 20:37] VITALS: BP 115/77; PULSE 75; RESP 18; TEMP 97.8; O2SAT 96
[2023-01-05] MEDS: DIVALPROEX SODIUM 500 MG ER TABLET PO SCH (21:30)
[2023-01-05] MEDS: MELATONIN 5 MG TABLET PO SCH (21:30)
[2023-01-05] MEDS: OLANZapine 10 MG RAPDIS TABLET PO SCH (21:31)
[2023-01-06] MEDS: LITHIUM CARBONATE 600 MG CAPSULE PO SCH ×2 (06:41→16:28)
[2023-01-06 09:30] VITALS: RESP 18
[2023-01-06] MEDS: LevETIRAcetam 500 MG TABLET PO SCH ×2 (09:43→16:28)
[2023-01-06] MEDS: OMEGA-3/DHA/EPA/FISH OIL 1,000 MG CAPSULE PO SCH (09:43)
[2023-01-06] MEDS: NALTREXONE HCL 50 MG TABLET PO SCH (09:44)
[2023-01-06] MEDS: QUEtiapine FUMARATE 100 MG TABLET PO PRN (16:28)
[2023-01-06 21:00] VITALS: BP 110/60; PULSE 70; RESP 18; TEMP 97.6
[2023-01-06] MEDS: OLANZapine 10 MG RAPDIS TABLET PO SCH (21:20)
[2023-01-06] MEDS: MELATONIN 5 MG TABLET PO SCH (21:21)
[2023-01-06] MEDS: DIVALPROEX SODIUM 500 MG ER TABLET PO SCH (21:21)
[2023-01-07] MEDS: LITHIUM CARBONATE 600 MG CAPSULE PO SCH (06:39)
[2023-01-07] MEDS ORDERED: LITH600C5 PO (08:43)
[2023-01-07] MEDS ORDERED: OLAN10TA26 PO (08:45)
[2023-01-07] MEDS ORDERED: NALT50TA6 PO (08:45)
[2023-01-07] MEDS ORDERED: LEVE500T20 PO (08:46)
[2023-01-07] MEDS: LevETIRAcetam 500 MG TABLET PO SCH (08:47)
[2023-01-07] MEDS: OMEGA-3/DHA/EPA/FISH OIL 1,000 MG CAPSULE PO SCH (08:48)
[2023-01-07] MEDS: NALTREXONE HCL 50 MG TABLET PO SCH (08:48)
[2023-01-07 08:49] VITALS: RESP 18
[2023-01-07] MEDS: QUEtiapine FUMARATE 100 MG TABLET PO PRN (08:57)
== END 2023-01-07 09:30 | disposition home or self-care (01) | DRG 750 ==
LOC: EMS 17:32 → B3A 12-22 11:30 → B2S 12-31 19:09
PROVIDERS: ADMIT Psychiatry & Neurology Psychiatry; ATTEND Psychiatry & Neurology Psychiatry
PROC: GZHZZZZ Group Psychotherapy (ICD-10-PCS; principal; 2022-12-22)
DX: F25.1 Schizoaffective disorder, depressive type (principal); E87.1 Hypo-osmolality and hyponatremia; F31.9 Bipolar disorder, unspecified; D72.829 Elevated white blood cell count, unspecified; E78.00 Pure hypercholesterolemia, unspecified; F17.200 Nicotine dependence, unspecified, uncomplicated; D64.9 Anemia, unspecified; F15.90 Other stimulant use, unspecified, uncomplicated; F41.9 Anxiety disorder, unspecified; Z20.822 Contact with and (suspected) exposure to COVID-19; G40.409 Other generalized epilepsy and epileptic syndromes, not intractable, without status epilepticus; J44.9 Chronic obstructive pulmonary disease, unspecified; Z91.148 Patient's other noncompliance with medication regimen for other reason; Z79.899 Other long term (current) drug therapy
CPT/HCPCS: 80053; 80061; 80164; 83036; 85025; 86592; 99291; G0480; J1200; J1630; J2060; J3230; J3420; Q9967

== ENCOUNTER 2023-02-13 01:54 | Emergency (ER) | payer MEDICAID, OTHER ==
[~2023-02-13] VITALS: Ht 190.5 cm; Wt 111.4 kg
[~2023-02-13 01:54] MED LIST changes: -FLUO20CA36 PO; -LEVE250T PO; +LEVE500T20 PO; -LEVE500T8 PO; +LITH600C5 PO; -MODA100T65 PO; +NALT50TA33 PO
[2023-02-13 02:14] LABS: PH,URINE DRUG SCREEN 5.5 (5.0-8.0)
[2023-02-13 02:21] LABS: ALCOHOL, URINE DRUG SCREEN NEGATIVE (NEGATIVE); AMPHET/METH SCREEN,URINE POSITIVE (NEGATIVE); BARBITURATE SCREEN, URINE NEGATIVE (NEGATIVE); BENZODIAZEPINES SCREEN,URINE NEGATIVE (NEGATIVE); CANNABINOID SCREEN,URINE NEGATIVE (NEGATIVE); COCAINE SCREEN,URINE NEGATIVE (NEGATIVE); METHADONE SCREEN, URINE NEGATIVE (NEGATIVE); OPIATE SCREEN,URINE NEGATIVE (NEGATIVE); PHENCYCLIDINE SCREEN,URINE NEGATIVE (NEGATIVE)
[2023-02-13 03:07] VITALS: BP 143/89; PULSE 119; RESP 18; TEMP 98
[2023-02-13] MEDS ORDERED: LORazepam 2 MG TABLET PO ONE (03:15)
== END 2023-02-13 03:28 | disposition still patient (30) ==
LOC: EMS 01:56
DX: F41.9 Anxiety disorder, unspecified (principal); F15.90 Other stimulant use, unspecified, uncomplicated; F32.A Depression, unspecified; E78.00 Pure hypercholesterolemia, unspecified; F20.9 Schizophrenia, unspecified; F17.210 Nicotine dependence, cigarettes, uncomplicated; F14.90 Cocaine use, unspecified, uncomplicated; F12.90 Cannabis use, unspecified, uncomplicated
CPT/HCPCS: 80307; 93005; 99284

== ENCOUNTER 2023-02-13 07:41 | Emergency (ER) | payer OTHER ==
[~2023-02-13] VITALS: Ht 190.5 cm; Wt 111.4 kg
[2023-02-13 07:48] VITALS: TEMP 98.2
[2023-02-13 08:28] LABS: BASOPHILS % (AUTO) 0.4 % (0.0-2.0); EOSINOPHILS % (AUTO) 0.1 % (1.0-6.0); HEMATOCRIT 42.3 % (41-53); HEMOGLOBIN 14.6 g/dL (13.5-17.5); LYMPHOCYTES # (AUTO) 2.3 K/uL (1.0-4.8); LYMPHOCYTES % (AUTO) 13.9 % (22.0-44.0); MEAN CORPUSCULAR HEMOGLOBIN 31.6 pg (26.0-34.0); MEAN CORPUSCULAR HGB CONC 34.4 G/dL (31.0-37.0); MEAN CORPUSCULAR VOLUME 92 fL (80-100); MONOCYTES # (AUTO) 1.8 K/uL (0.1-1.0); MONOCYTES % (AUTO) 11.2 % (2.0-9.0); NEUTROPHILS # (AUTO) 12.1 K/uL (1.8-7.7); NEUTROPHILS % (AUTO) 74.4 % (40.0-70.0); PLATELET COUNT (AUTO) 295 K/uL (150-450); RED BLOOD CELL COUNT(AUTO) 4.61 MIL/uL (4.50-5.90); RED CELL DISTRIBUTION WIDTH 13.7 % (11.5-14.5); WHITE BLOOD COUNT (AUTO) 16.3 K/uL (4.5-11.0)
[2023-02-13 08:35] LABS: ANION GAP 13 mmol/L (8-16); CALCIUM, TOTAL 8.8 mg/dL (8.8-10.5); CARBON DIOXIDE 23 mmol/L (22-29); CHLORIDE 103 mmol/L (98-107); CREATININE 1.31 mg/dL (0.60-1.30); GLOMERULAR FILTR. RATE CALC 59 mL/min (>60); GLUCOSE,RANDOM 118 mg/dL (70-110); POTASSIUM 3.6 mmol/L (3.5-5.1); SODIUM SERUM 139 mmol/L (136-145); UREA NITROGEN, BLOOD 14 mg/dL (7-18)
[2023-02-13 08:41] LABS: ALANINE AMINOTRANSFERASE 26 U/L (12-78); ALBUMIN 4.1 g/dL (3.4-5.0); ALKALINE PHOSPHATASE 61 U/L (46-116); ASPARTATE AMINOTRANSFERASE 34 U/L (15-37); BILIRUBIN,TOTAL 0.8 mg/dL (0.1-1.0); TOTAL PROTEIN, SERUM 7.8 g/dL (6.4-8.2)
[2023-02-13 08:43] LABS: ALCOHOL, BLOOD (SERUM) < 3 mg/dL (0-10)
[2023-02-13] MEDS ORDERED: HALOPERIDOL 5 MG TABLET PO ONE (09:00)
[2023-02-13] MEDS ORDERED: LORazepam 2 MG TABLET PO ONE (09:00)
[2023-02-13 09:25] LABS: ALCOHOL, URINE DRUG SCREEN NEGATIVE (NEGATIVE); AMPHET/METH SCREEN,URINE POSITIVE (NEGATIVE); BARBITURATE SCREEN, URINE NEGATIVE (NEGATIVE); BENZODIAZEPINES SCREEN,URINE NEGATIVE (NEGATIVE); CANNABINOID SCREEN,URINE NEGATIVE (NEGATIVE); COCAINE SCREEN,URINE NEGATIVE (NEGATIVE); METHADONE SCREEN, URINE NEGATIVE (NEGATIVE); OPIATE SCREEN,URINE NEGATIVE (NEGATIVE); PHENCYCLIDINE SCREEN,URINE NEGATIVE (NEGATIVE)
[2023-02-13] MEDS ORDERED: LORazepam 1 MG TABLET PO ONE (10:30)
[2023-02-13 12:10] VITALS: BP 126/93; PULSE 98; RESP 18
== END 2023-02-13 12:12 | disposition home or self-care (01) ==
LOC: EMS 07:42
DX: F20.9 Schizophrenia, unspecified (principal); F15.10 Other stimulant abuse, uncomplicated; F41.9 Anxiety disorder, unspecified; F31.9 Bipolar disorder, unspecified; E78.00 Pure hypercholesterolemia, unspecified; F17.210 Nicotine dependence, cigarettes, uncomplicated; F14.90 Cocaine use, unspecified, uncomplicated; F12.90 Cannabis use, unspecified, uncomplicated
CPT/HCPCS: 99284; 80053; 85025; 36415; 93005; 80307; G0480

== ENCOUNTER 2023-02-23 01:05 | Inpatient (IN) | payer MEDICAID, OTHER ==
[~2023-02-23] VITALS: Ht 190.5 cm; Wt 108.0 kg
[2023-02-23] MEDS ORDERED: HALOPERIDOL 5 MG TABLET PO PRN (05:00)
[2023-02-23] MEDS ORDERED: LORazepam 2 MG TABLET PO PRN (05:00)
[2023-02-23] MEDS ORDERED: ZOLPIDEM TARTRATE 10 MG TABLET PO PRN (05:00)
[2023-02-23 05:37] VITALS: BP 125/80; PULSE 80; RESP 18; TEMP 98.1; O2SAT 99
[2023-02-23] MEDS ORDERED: INFLUENZA VIRUS VACCINE QVS 2023-24 (6MO+)/PF 60 MCG/0.5 ML SYRINGE IM. ONE (06:45)
[2023-02-23] MEDS ORDERED: PNEUMOCOCCAL VACCINE POLYVALENT 0.5 ML SYRINGE [PPSV23] IM. ONE (06:45)
[2023-02-23 09:01] VITALS: BP 130/81; PULSE 88; RESP 18; TEMP 98.6; O2SAT 99
[2023-02-23] MEDS ORDERED: LOPERAMIDE HCL 2 MG CAPSULE PO PRN ×2 (09:45)
[2023-02-23] MEDS ORDERED: PALIPERIDONE PALMITATE 234 MG/1.5 ML SYRINGE IM ONE (09:45)
[2023-02-23] MEDS ORDERED: GuaiFENesin/D-METHORPHAN [SUGAR-FREE] 200-20MG/10 ML SYRUP UDCUP PO PRN (09:45)
[2023-02-23] MEDS ORDERED: MAG HYDROX/ALUMINUM HYD/SIMETH ES 30 ML SUSPENSION UDCUP PO PRN (09:45)
[2023-02-23] MEDS ORDERED: PROMETHAZINE HCL 25 MG TABLET PO PRN (09:45)
[2023-02-23] MEDS ORDERED: MAGNESIUM HYDROXIDE SUSPENSION 30 ML UDCUP PO PRN (09:45)
[2023-02-23] MEDS ORDERED: OLANZapine 5 MG RAPDIS TABLET PO PRN (09:45)
[2023-02-23] MEDS ORDERED: HydrOXYzine PAMOATE 50 MG CAPSULE PO PRN (09:45)
[2023-02-23] MEDS ORDERED: ACETAMINOPHEN 325 MG TABLET PO PRN (09:45)
[2023-02-23] MEDS: LITHIUM CARBONATE 600 MG CAPSULE PO SCH (16:52)
[2023-02-23] MEDS: THIAMINE 100 MG TABLET PO SCH (16:52)
[2023-02-23] MEDS: LevETIRAcetam 250 MG TABLET PO SCH (16:53)
[2023-02-23] MEDS ORDERED: LevETIRAcetam 500 MG TABLET PO SCH (17:00)
[2023-02-23] MEDS: DIVALPROEX SODIUM 500 MG ER TABLET PO SCH (20:23)
[2023-02-23] MEDS ORDERED: OLANZapine 5 MG RAPDIS TABLET PO SCH (21:00)
[2023-02-23 21:36] VITALS: BP 115/70; PULSE 78; RESP 20; TEMP 98.3; O2SAT 96
[2023-02-24] MEDS: LITHIUM CARBONATE 600 MG CAPSULE PO SCH ×3 (06:19→17:00)
[2023-02-24 09:00] VITALS: BP 120/80; PULSE 80; RESP 18; TEMP 97.4; O2SAT 97
[2023-02-24] MEDS: LevETIRAcetam 250 MG TABLET PO SCH ×2 (11:38→17:00)
[2023-02-24] MEDS: FOLIC ACID 1 MG TABLET PO SCH (11:39)
[2023-02-24] MEDS: MULTIVITAMINS WITH MINERALS, THERAPEUTIC TABLET PO SCH (11:39)
[2023-02-24] MEDS: THIAMINE 100 MG TABLET PO SCH ×2 (11:39→17:00)
[2023-02-24 20:10] VITALS: BP 128/76; PULSE 80; RESP 16; TEMP 97.6
[2023-02-24] MEDS: DIVALPROEX SODIUM 500 MG ER TABLET PO SCH (20:37)
[2023-02-24] MEDS: OLANZapine 10 MG TABLET PO SCH (20:40)
[2023-02-25] MEDS: LITHIUM CARBONATE 600 MG CAPSULE PO SCH ×2 (06:46→16:52)
[2023-02-25 08:36] VITALS: RESP 18
[2023-02-25] MEDS: THIAMINE 100 MG TABLET PO SCH ×2 (09:36→16:52)
[2023-02-25] MEDS: LevETIRAcetam 250 MG TABLET PO SCH ×2 (09:36→16:52)
[2023-02-25] MEDS: FOLIC ACID 1 MG TABLET PO SCH (09:36)
[2023-02-25] MEDS: MULTIVITAMINS WITH MINERALS, THERAPEUTIC TABLET PO SCH (09:37)
[2023-02-25] MEDS ORDERED: MELA5TAB40 PO (16:53)
[2023-02-25] MEDS ORDERED: DIVA500T69 PO (16:53)
[2023-02-25] MEDS ORDERED: LEVE250T PO (16:53)
[2023-02-25] MEDS ORDERED: LITH600C5 PO (16:53)
[2023-02-25] MEDS ORDERED: NALT50TA PO (16:53)
[2023-02-25] MEDS ORDERED: OLAN10TA74 PO (16:53)
[2023-02-25 20:19] VITALS: BP 107/66; PULSE 95; RESP 16; TEMP 97.8; O2SAT 99
[2023-02-25] MEDS: OLANZapine 10 MG TABLET PO SCH (20:43)
[2023-02-25] MEDS: DIVALPROEX SODIUM 500 MG ER TABLET PO SCH (20:43)
[2023-02-26] MEDS: LITHIUM CARBONATE 600 MG CAPSULE PO SCH (06:49)
[2023-02-26 09:16] VITALS: RESP 17
[2023-02-27] MEDS ORDERED: PALIPERIDONE PALMITATE 156 MG/ML SYRINGE IM ONE (09:00)
== END 2023-02-26 14:33 | disposition home or self-care (01) | DRG 750 ==
LOC: B2S 04:27
PROVIDERS: ADMIT Psychiatry & Neurology Psychiatry; ATTEND Psychiatry & Neurology Psychiatry
PROC: GZHZZZZ Group Psychotherapy (ICD-10-PCS; principal; 2023-02-23)
PROC: GZ51ZZZ Individual Psychotherapy, Behavioral (ICD-10-PCS; 2023-02-23)
DX: F25.9 Schizoaffective disorder, unspecified (principal); R45.851 Suicidal ideations; E78.00 Pure hypercholesterolemia, unspecified; E78.1 Pure hyperglyceridemia; F17.200 Nicotine dependence, unspecified, uncomplicated; J44.9 Chronic obstructive pulmonary disease, unspecified; F12.10 Cannabis abuse, uncomplicated; F19.10 Other psychoactive substance abuse, uncomplicated; F32.A Depression, unspecified; Z79.899 Other long term (current) drug therapy